=== PATIENT | male | born 1960 | race Caucasian/White ===

== ENCOUNTER → 2022-10-25 14:41 | Outpatient (BNVA) | payer BC, SELFPAY | PROVIDERS: PCP Internal Medicine; Visit Provider Surgery ==

== ENCOUNTER 2022-11-11 15:18 | Outpatient (REF) | payer BC, SELFPAY ==
--- NOTE | ~2022-11-11 | XR_ITS ---
EXAMINATION: XR KNEE, LEFT CLINICAL INFORMATION: Pain COMPARISON: Previous x-ray December 2008 TECHNIQUE: Four views of the left knee. FINDINGS: Bone alignment is normal. No fracture or dislocation. There is joint space narrowing and small osteophytes at the medial femoral tibial joint. There are osteophytes at the patellofemoral joint and slight lateral tilt of the patella. There are increasing soft tissue ossifications posterior to the knee questionable for ossified intra-articular loose bodies. There is a small joint effusion. XR/XR knee LT 4V IMPRESSION: Arthritis and question ossified intra-articular loose bodies.
== END 2022-11-11 15:19 | disposition home or self-care (01) ==
LOC: HO.HMGCX 15:18
PROVIDERS: PCP Internal Medicine; Visit Provider Internal Medicine
DX: M25.562 Pain in left knee (principal)
CPT/HCPCS: 73564

== ENCOUNTER 2022-12-20 13:09 | Outpatient (REF) | payer BC, SELFPAY ==
--- NOTE | ~2022-12-20 | XR_ITS ---
EXAMINATION: XR HIP, LEFT CLINICAL INFORMATION: Left hip pain COMPARISON: None available. TECHNIQUE: Two views of the left hip. FINDINGS: No significant hip joint narrowing. No fracture or dislocation. Mild sclerosis symphysis pubis. Mild spurring left lesser trochanter. XR/XR hip LT min 2V IMPRESSION: No acute bony pathology.
--- NOTE | ~2022-12-20 | XR_ITS ---
EXAMINATION: XR ANKLE, LEFT CLINICAL INFORMATION: Left ankle pain COMPARISON: None available. TECHNIQUE: AP, lateral, and mortise views of the left ankle. FINDINGS: No fracture. Alignment is anatomic. No erosions. Joint spaces are maintained. Soft tissues are normal. Calcaneal spurring. Pretibial phlebolith. XR/XR ankle LT min 3V IMPRESSION: No acute bony pathology. Calcaneal spurring.
== END 2022-12-20 13:10 | disposition home or self-care (01) ==
LOC: HO.HMGCX 13:09
PROVIDERS: PCP Internal Medicine; Visit Provider Internal Medicine
DX: R60.0 Localized edema (principal); M25.572 Pain in left ankle and joints of left foot; M25.552 Pain in left hip
CPT/HCPCS: 73502; 73610

== ENCOUNTER 2023-01-03 10:49 | Outpatient (AMB) | payer BC, SELFPAY ==
--- NOTE | 2023-01-03 11:09 | MHC.OFFVIS ---
Intake Vital Signs 01/03/23 11:11 Height 6 ft 1 in Weight 367 lb BMI 48.4 Intake Visit Reasons: [employer]- left knee pain Intake Note: Kolby is a 62 year old male who presents today as a new patient with complaints of left knee pain. Patient reports that the left knee has been painful for many years now. He was told by [facility] that he had PF knee syndrome. No history of injections or surgery. Some therapy which was not helpful. His knee is painful at all times, increased pain with getting in and out of the car and performing daily acitvities. He takes ibuprofen for his pain which helps but does not want to rely on this. Allergies Penicillins [PENICILLINS] Allergy (Intermediate, Unverified 02/10/20 15:29) HIVES lisinopril [LISINOPRIL] Adverse Reaction (Intermediate, Unverified 02/10/20 15:29) COUGH HPI [employer]- left knee pain HPI Details Kolby is a 62 year old man who presents with several years left knee pain. He complains of pain with daily activity, worse with walking, using stairs, or climbing in/out of a car. He says he can walk only a sort distance now before having to rest. He says standing from a seated position is especially painful. He reports walking with a limp for ~10 years now He says his knee pain worsened after this injury. He complains of some pain in his left ankle, following a sprain ~3 months ago. He says he has a band of burning pain just above his ankle. He denies any injections or surgery. He takes NSAIDs which gave some relief and he did some PT which he feels did not help him much. He says he has always been big his whole life, but he has gained ~50lbs in the last few years [facility] Social History (Updated 01/03/23 @ 11:14 by Lorene Lima [facility]) Current occupational status: employed Current occupation: [employer] Review of Systems Const All systems reviewed & are unremarkable except as noted in HPI and below Physical Exam Vital Signs: BMI result Body Mass Index 48.4 Const General: no acute distress, alert and awake Orientation/consciousness: patient oriented x3 HEENT Head: Yes normocephalic and Yes atraumatic Eyes EOM: EOMs intact bilaterally Resp Effort & Inspection: normal respiratory effort and able to speak in complete sentences Cardio Jugular venous distension: no JVD Skin General skin exam: turgor normal Rashes: no rashes Neuro General: patient oriented x3 Extrem Other: Left Knee: Psych Appearance: grossly normal Affect: normal affect Attitude: cooperative Office Procedures Joint Injection/Drain Joint Injection/Drain Details: Injected 1 mL of Decadron and 3 mL 1% lidocaine and 3 mL of 0.25% Marcaine. Site was prepped using aseptic technique. Patient tolerated the procedure well. Primary Site: left knee Approach Used: anterolateral Coding 59998 - Large joint Procedure code (CPT) selection complete Results Reviewed Results Reviewed: 01/03/23 11:42 BUPivacaine MPF 0.25 % [Sensorcaine-MPF 0.25% 10 ML] 10 ml .ROUTE .STK-MED ONE Lidocaine HCl 2 % MPF [Xylocaine 2 % MPF] 5 ml .ROUTE .STK-MED ONE dexAMETHasone sod phosphate [Decadron] 4 mg .ROUTE .STK-MED ONE I personally reviewed relevant radiographs. Moderate-severe left knee OA Assessment & Plan Assessment & Plan (1) Osteoarthritis of left knee: Code(s): M17.12 - Unilateral primary osteoarthritis, left knee Plan: This is a 62 year old man with moderate-severe left knee OA. He has pain with daily activity, worse with prolonged ambulation, standing from a seated position, or using stairs. He is unable to ambulate beyond a few minutes without pain and feels limited in his ADLs. I discussed his diagnosis and treatment options. I recommend PT, NSAIDs, and weight management. I injected his left knee today, which he tolerated well, and ordered PT for strengthening & normalizing gait mechanics. He will follow up in 3 months. (2) Antalgic gait: Code(s): R26.89 - Other abnormalities of gait and mobility (3) BMI 45.0-49.9, adult: Code(s): Z68.42 - Body mass index [BMI] 45.0-49.9, adult Plan: Current BMI 48.4. I recommend weight management. Plan Scribed for Ashutosh Pinzon MD by Von Lamb, medical physiologist, on 01/03/23 at 11:45 AM, EST. Orders: Orders PT Evaluation and Treatment Today M17.12 - Unilateral primary osteoarthritis, left knee, R26.89 - Other abnormalities of gait and mobility Coding Level of Care Code New Pt Level 4 (26587) Diagnoses Osteoarthritis of left knee M17.12 Antalgic gait R26.89 BMI 45.0-49.9, adult Z68.42 CPT Codes Coding - 05094 Large joint: 23067 - Large joint ([id number])
[2023-01-03 11:11] VITALS: BMI 48.4
== END 2023-01-03 12:07 | disposition home or self-care (01) ==
PROVIDERS: PCP Internal Medicine; Visit Provider Orthopaedic Surgery
DX: M17.12 Unilateral primary osteoarthritis, left knee (principal); R26.89 Other abnormalities of gait and mobility; Z68.42 Body mass index [BMI] 45.0-49.9, adult
CPT/HCPCS: 20610; 99204

== ENCOUNTER → 2023-01-03 10:49 | Outpatient (BNVA) | payer BC, SELFPAY | PROVIDERS: PCP Internal Medicine; Visit Provider Orthopaedic Surgery | DX: M17.12 Unilateral primary osteoarthritis, left knee (principal); R26.89 Other abnormalities of gait and mobility; E66.3 Overweight; Z68.42 Body mass index [BMI] 45.0-49.9, adult | CPT/HCPCS: 20610; J1100 ==

== ENCOUNTER 2023-02-14 10:00 | Outpatient (REF) | payer BC, SELFPAY ==
--- NOTE | ~2023-02-14 | XR_ITS ---
EXAMINATION: XR LUMBOSACRAL SPINE CLINICAL INFORMATION: Reason for Exam LOW BACK PAIN. COMPARISON: Lumbar spine radiographs 12/27/2017 TECHNIQUE: 3 views of the lumbar spine FINDINGS: 5 nonrib-bearing lumbar-type vertebral bodies. Vertebral body heights are maintained. Alignment is maintained. Moderate to advanced multilevel degenerative disc disease with loss of disc space height and facet arthropathy progressed from prior. Paravertebral soft tissues are unremarkable. XR/XR lumbar spine 2-3V IMPRESSION: 1. Moderate to advanced multilevel degenerative disc disease progressed from prior.
== END 2023-02-14 10:01 | disposition home or self-care (01) ==
LOC: HO.HMGCX 10:00
PROVIDERS: PCP Internal Medicine; Visit Provider Internal Medicine
DX: M51.37 Other intervertebral disc degeneration, lumbosacral region (principal); M54.50 Low back pain, unspecified
CPT/HCPCS: 72100

== ENCOUNTER 2023-04-07 14:51 | Outpatient (AMB) | payer BC, SELFPAY ==
--- NOTE | 2023-04-07 14:57 | A.OFFVIS_ITS ---
Intake Intake Visit Reasons: Left Knee last inj 01/03/23 Intake Note: This is a 62 year old male patient who presents for a follow up. He had a left knee injection on 01/03/23. Allergies Penicillins [PENICILLINS] Allergy (Intermediate, Unverified 04/07/23 15:01) HIVES lisinopril [LISINOPRIL] Adverse Reaction (Intermediate, Unverified 04/07/23 15:01) COUGH Medication List - Last Reconciled 04/07/23 by Jazmyne Jack RN losartan 50 mg PO DAILY naproxen 500 mg PO BID HPI Left Knee last inj 01/03/23 HPI Details Kolby is a 62 year old man who returns to discuss his left knee OA. He was last seen, and injected, on 01/03/23, with good, but short relief. He reports some improvements in his pain, but this has not fully resolved. He continues to have pain with daily activity, worse with walking, using stairs, or climbing in/out of a car. He says he can walk only a sort distance now before having to rest. He says standing from a seated position is especially painful. He reports having some increased pain in his hips and is unsure if his back is related. He has been attending PT, which has been helpful, and has found more relief from Naproxen recently. [facility] Social History (Updated 01/03/23 @ 11:14 by Lorene Lima [facility]) Current occupational status: employed Current occupation: [employer] Review of Systems Const All systems reviewed & are unremarkable except as noted in HPI and below Physical Exam Const General: no acute distress, alert and awake Orientation/consciousness: patient oriented x3 HEENT Head: Yes normocephalic and Yes atraumatic Eyes EOM: EOMs intact bilaterally Resp Effort & Inspection: normal respiratory effort and able to speak in complete sentences Cardio Jugular venous distension: no JVD Skin General skin exam: turgor normal Rashes: no rashes Neuro General: patient oriented x3 Extrem Other: Left Knee: Psych Appearance: grossly normal Affect: normal affect Attitude: cooperative Office Procedures Joint Injection/Drain Joint Injection/Drain Details: Injected 1 mL of Decadron and 3 mL 1% lidocaine and 3 mL of 0.25% Marcaine. Site was prepped using aseptic technique. Patient tolerated the procedure well. Primary Site: left knee Approach Used: anterolateral Coding 79476 - Large joint Procedure code (CPT) selection complete Results Reviewed Results Reviewed: I personally reviewed relevant radiographs. Moderate-severe left knee OA Assessment & Plan Assessment & Plan (1) Osteoarthritis of left knee: Code(s): M17.12 - Unilateral primary osteoarthritis, left knee Plan: This is a 62 year old man with moderate-severe left knee OA. He has pain with daily activity, worse with prolonged ambulation, standing from a seated position, or using stairs. He had good but short relief from a steroid injection on 01/03/23 & finds some relief from PT. He is unable to ambulate beyond a few minutes without pain and feels limited in his ADLs. I discussed his diagnosis and treatment options. I recommend he continue PT, NSAIDs, and weight management. I injected his left knee today, which he tolerated well, he should be mindful to not push through pain. He will follow up in 3 months. (2) Antalgic gait: Code(s): R26.89 - Other abnormalities of gait and mobility (3) BMI 45.0-49.9, adult: Code(s): Z68.42 - Body mass index [BMI] 45.0-49.9, adult Plan: Current BMI 48.4. I recommend weight management. Plan Scribed for Ashutosh Pinzon MD by Von Lamb, medical assistant cardiology, on 04/07/23 at 3:10 PM, EST. Coding Level of Care Code Est Pt Level 3 (39294) Diagnoses Osteoarthritis of left knee M17.12 Antalgic gait R26.89 BMI 45.0-49.9, adult Z68.42 CPT Codes Coding - Large joint: 74795 - Large joint ([id number])
== END 2023-04-07 15:14 | disposition home or self-care (01) ==
PROVIDERS: PCP Internal Medicine; Visit Provider Orthopaedic Surgery
DX: M17.12 Unilateral primary osteoarthritis, left knee (principal); R26.89 Other abnormalities of gait and mobility
CPT/HCPCS: 20610; 99213

== ENCOUNTER → 2023-04-07 14:51 | Outpatient (BNVA) | payer BC, SELFPAY | PROVIDERS: PCP Internal Medicine; Visit Provider Orthopaedic Surgery | DX: M17.12 Unilateral primary osteoarthritis, left knee (principal); R26.89 Other abnormalities of gait and mobility | CPT/HCPCS: 20610; J0665; J1100 ==

== ENCOUNTER 2023-12-10 13:55 | Outpatient (AMB) | payer BC, SELFPAY ==
--- NOTE | 2023-12-10 14:10 | MHC.OFFVIS ---
Intake Visit Reasons: incomplete bladder emptying/nocturia Intake Note: New Patient presents for initial visit for incomplete bladder emptying Urology Medications: none Blood Thinner: none PVR: 17ml's Media Aid Required: No Accompanied by: Self / Same As Patient Allergies Penicillins [PENICILLINS] Allergy (Intermediate, Unverified 12/10/23 15:33) HIVES lisinopril [LISINOPRIL] Adverse Reaction (Intermediate, Unverified 12/10/23 15:33) COUGH Medication List - Last Reconciled 12/10/23 by CALLIE Garzon- losartan 50 mg PO DAILY naproxen 500 mg PO BID HPI Comments Details: Kolby is a very pleasant 63-year-old male patient of Dr. Baxter. He has a past medical history of obesity and hypertension. He presents to the office today as a new patient for ongoing lower urinary tract symptoms. In discussion with the patient today he reports noting worsening lower urinary tract symptoms over the last 2-3 years. He reports having followed up with his PCP at which time he discussed lower urinary tract symptoms in referral was made to Urology for further assessment evaluation. He reports noting nocturia up to 5 times per night as well as urinary urgency and frequency. He otherwise denies hematuria, dysuria, foul smelling urine, changes to urinary stream, flank pain, fever, and or chills. In office urinalysis results reviewed with the patient today. PVR 17 mL. Discussed at length potential causes for lower urinary tract symptoms patient is experiencing. Discussed obtaining sleep study, retroperitoneal ultrasound, and PSA for further assessment evaluation. Discussed lifestyle modifications to assist with lower urinary tract symptoms. He otherwise denies any other bothersome issues or concerns at this time. [facility] Social History Current occupational status: employed Current occupation: [employer] Review of Systems Const All systems reviewed & are unremarkable except as noted in HPI and below Physical Exam Const General: cooperative, comfortable, no acute distress, well developed, alert and awake Nutritional Appearance: obese Orientation/consciousness: patient oriented x3 Limitations: no limitations HEENT Head: Yes normal to inspection, Yes normocephalic and Yes atraumatic Ears: hearing grossly normal bilaterally Eyes General: appearance normal, both eyes and all related structures Neck Neck: Yes normal visual inspection and Yes trachea midline Chest Chest palpation & inspection: normal inspection of the chest Resp Effort & Inspection: normal respiratory effort and able to speak in complete sentences Cardio Rate: regular rate GI Inspection: Yes normal to inspection General: Yes no CVA tenderness Back/Spine/Pelvis Back: no CVA tenderness Skin General skin exam: no rashes or lesions noted Neuro General: patient oriented x3 Extrem General: Yes normal to inspection Psych Appearance: grossly normal and well kempt Mental Status: mental status grossly normal Speech and movement: Normal speech and movement present and Clear speech present Affect: normal affect Attitude: cooperative Thought process: Normal thought process present Thought content: Normal thought content present Insight: Fair insight present (Psych) Judgement: Fair judgement present (Psych) Office Procedures Post Void Residual Post Residual Void Post Void Residual (PVR): 54624-Cygd Void Residual by ultrasound Results AMB Urinalysis, Automated UA Leukoctes 0 Lizzy/uL Last Edit by Adyoulike on 12/10/23 14:39 UA Nitrite Negative Last Edit by Adyoulike on 12/10/23 14:39 UA Urobilinogen 0.2 mg/dL Last Edit by Adyoulike on 12/10/23 14:39 UA Protein 15 mg/dL Last Edit by Adyoulike on 12/10/23 14:39 UA pH 6.0 Last Edit by Adyoulike on 12/10/23 14:39 UA Blood 0 Braulio/uL Last Edit by Adyoulike on 12/10/23 14:39 UA Specific [place] 1.020 Last Edit by Adyoulike on 12/10/23 14:39 UA Ketone Negative Last Edit by Adyoulike on 12/10/23 14:39 UA Bilirubin 0 mg/dL Last Edit by Adyoulike on 12/10/23 14:39 UA Glucose 0 mg/dL Last Edit by Adyoulike on 12/10/23 14:39 Results Reviewed Results Reviewed: Laboratory Last Values Urine pH (Auto) 6.0 12/10/23 14:15 Specific [place] (Auto) 1.020 12/10/23 14:15 Urine Protein (Auto) 15 mg/dL 12/10/23 14:15 Glucose (UA)(Auto) 0 mg/dL 12/10/23 14:15 Urine Ketones (Auto) Negative 12/10/23 14:15 Urine Blood (Auto) 0 Braulio/uL 12/10/23 14:15 Urine Nitrite (Auto) Negative 12/10/23 14:15 Urine Bilirubin (Auto) 0 mg/dL 12/10/23 14:15 Urine Urobilinogen (Auto) 0.2 mg/dL 12/10/23 14:15 Leukocyte Esterase (Auto) 0 Lizzy/uL 12/10/23 14:15 Assessment & Plan Assessment & Plan (1) Nocturia: Code(s): R35.1 - Nocturia Category: Medical (2) Urinary frequency: Code(s): R35.0 - Frequency of micturition Category: Medical Plan In office urinalysis results reviewed with the patient today; as noted above. PVR 17 mL. Discussed at length potential causes of lower urinary tract symptoms patient is experiencing. Discussed obtaining retroperitoneal ultrasound, PSA, and home sleep study for further assessment evaluation. Discussed potential near future in office cystoscopy if symptoms continue and or worsen. Discussed lifestyle modifications to assist with lower urinary tract symptoms. Discussed bladder triggers/irritants Discussed, educated, and stressed the importance of weight loss for improvement lower urinary tract symptoms as well as overall health and well-being. Follow-up in 1-3 months with imaging and labs to be completed prior; or sooner with any issues, concerns, and or questions. Orders: Orders AMB Urinalysis Automated Today Z13.9 - Encounter for screening, unspecified AMB Post Void Residual by ultrasound Today Z13.9 - Encounter for screening, unspecified US retroperitoneal comp Today R35.0 - Frequency of micturition, R35.1 - Nocturia Prostate Specific Antigen Today R35.0 - Frequency of micturition, R35.1 - Nocturia RT home sleep study Today R35.1 - Nocturia, R53.83 - Other fatigue Patient Instructions: The patient had an opportunity to ask questions regarding the treatment plan. All questions were answered. Physical exam, labs, and imaging were discussed and reviewed in detail. As well as risks, benefits, and discussion of treatment choices. No major barriers to understanding were identified. The patient expressed understanding and agreement with the above treatment plan. The patient was made aware they should contact our office by phone for worsening of their current condition, the appearance of new symptoms, or with any questions or concerns. Compliance is encouraged with any medications and follow up testing that is ordered. It is a privilege to be allowed the opportunity to participate in? your urological care.? Again, if you have any questions or concerns If you have any questions or concerns please do not hesitate to contact me. The office is [phone]. This note is constructed using voice recognition software. While every effort has been made to ensure accuracy internal combustion engine subassembler errors may have been included. Yours sincerely, CALLIE Garzon-ABDIEL Coding Level of Care Code New Pt Level 3 (64950) Diagnoses Nocturia R35.1 Urinary frequency R35.0 CPT Codes Post Residual Void - PVR CPT Code: 68004-Ydlq Void Residual by ultrasound ([id number])
== END 2023-12-10 14:55 | disposition home or self-care (01) ==
PROVIDERS: PCP Internal Medicine; Visit Provider Nurse Practitioner Family
DX: R35.1 Nocturia (principal); R35.0 Frequency of micturition; Z13.9 Encounter for screening, unspecified
CPT/HCPCS: 99203

== ENCOUNTER → 2023-12-10 13:55 | Outpatient (BNVA) | payer BC, SELFPAY | PROVIDERS: PCP Internal Medicine; Visit Provider Nurse Practitioner Family | DX: R35.1 Nocturia (principal); R35.0 Frequency of micturition | CPT/HCPCS: 51798; 81003 ==

== ENCOUNTER 2024-01-28 16:20 | Outpatient (REF) | payer BC, SELFPAY ==
--- NOTE | ~2024-01-28 | US_ITS ---
EXAMINATION: US RETROPERITONEAL LIMITED (RENAL ONLY) CLINICAL INFORMATION: Nocturia. COMPARISON: None available. TECHNIQUE: Real-time imaging of the kidneys. FINDINGS: RIGHT KIDNEY: 12.9 x 5.4 x 4.9 cm (SAG x AP x TRV). The kidney is normal in size, contour, and echogenicity. Renal cortical thickness is normal. No calculi or focal parenchymal lesions. No hydronephrosis. LEFT KIDNEY: 11.9 x 5.7 x 5.0 cm (SAG x AP x TRV). The kidney is normal in size, contour, and echogenicity. Renal cortical thickness is normal. No calculi or focal parenchymal lesions. No hydronephrosis. US/US retroperitoneal limited IMPRESSION: Unremarkable examination. Electronically signed by: Reza Berrios MD 01/30/2024 10:28 PM EDT
== END 2024-01-28 16:21 | disposition home or self-care (01) ==
LOC: HO.US 16:20
PROVIDERS: PCP Internal Medicine; Visit Provider Nurse Practitioner Family
DX: R35.1 Nocturia (principal); R35.0 Frequency of micturition
CPT/HCPCS: 76775

== ENCOUNTER 2024-02-04 09:56 | Outpatient (REF) | payer BC, SELFPAY ==
--- NOTE | ~2024-02-04 | US_ITS ---
EXAMINATION: US PELVIS LIMITED (BLADDER) CLINICAL INFORMATION: Nocturia. COMPARISON: None available. TECHNIQUE: Real-time imaging of the bladder. FINDINGS: BLADDER: Well distended and normal. Bilateral ureteral jets are demonstrated. Prevoid bladder volume is 217 mL. Postvoid bladder volume is 26 mL. PROSTATE: The prostate was not seen with certainty. What was thought to possibly represent the prostate was of normal volume at 16 mL. US/US bladder IMPRESSION: Normal-appearing bladder. Limited evaluation of the prostate, as described above. 26 mL postvoid residual. Electronically signed by: Beltran Rehman MD 02/07/2024 12:35 PM EDT
== END 2024-02-04 09:57 | disposition home or self-care (01) ==
LOC: HO.HMGCX 09:56
PROVIDERS: PCP Internal Medicine; Visit Provider Nurse Practitioner Family
DX: R35.1 Nocturia (principal); R35.0 Frequency of micturition
CPT/HCPCS: 76857

== ENCOUNTER 2024-02-21 09:05 | Outpatient (REF) | payer BC, SELFPAY ==
[2024-02-21 12:04] LABS: Prostate Specific Antigen 0.76 ng/mL (<0.05-4.0)
== END 2024-02-21 09:06 | disposition home or self-care (01) ==
LOC: HO.HMGCLDS 09:05
PROVIDERS: PCP Internal Medicine; Visit Provider Nurse Practitioner Family
DX: R35.1 Nocturia (principal); R35.0 Frequency of micturition; Z12.5 Encounter for screening for malignant neoplasm of prostate
CPT/HCPCS: 36415; 84153

== ENCOUNTER 2024-02-23 15:44 | Outpatient (AMB) | payer BC, SELFPAY ==
--- NOTE | 2024-02-23 15:47 | A.OFFVIS_ITS ---
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 Baxter. He has a past medical history of obesity and hypertension. He presents to the office today for follow-up. Of note, patient was seen approximately 2 months ago as a new patient for ongoing lower urinary tract symptoms at which time asleep pumps study was ordered, a PSA, and a retroperitoneal ultrasound for further assessment evaluation. These results were reviewed with the patient today bilateral kidneys with no calculi, lesions, and or hydronephrosis. The bladder is well distended and normal. Bladder jets are demonstrated. Pre void bladder volume is approximately 220 mL. Postvoid bladder volume is approximately 30 mL. The prostate was not seen with certainty. What was thought to possibly represent the prostate was of normal volume at 16 mL. PSA 02/16 0.8. Unfortunately home sleep study was not able to be performed as this was not covered by his insurance. We discussed referral to sleep medicine for further assessment evaluation as patient does report feeling fatigued upon wakening, nocturia, and reports snoring. We discussed trial of alpha-whitney verses in office cystoscopy for further assessment evaluation. He does continue to report nocturia up to 5 times per night, urinary urgency, and urinary frequency. He otherwise denies hematuria, dysuria, foul-smelling urine, changes to urinary stream, flank pain, fever, and or chills. In office urinalysis results reviewed with the patient today. PVR 20 mL. We discussed at length potential causes of lower urinary tract symptoms patient is experiencing as well as importance of weight loss to assist with lower urinary tract symptoms as well as overall health and well-being. He otherwise offers no other issues or concerns at this time. [facility] Social History Current occupational status: employed Current occupation: [employer] Review of Systems Const All systems reviewed & are unremarkable except as noted in HPI and below Physical Exam Const General: cooperative, comfortable, no acute distress, well developed, alert and awake Nutritional Appearance: obese Orientation/consciousness: patient oriented x3 Limitations: no limitations HEENT Head: Yes normal to inspection, Yes normocephalic and Yes atraumatic Ears: hearing grossly normal bilaterally Eyes General: appearance normal, both eyes and all related structures Neck Neck: Yes normal visual inspection and Yes trachea midline Chest Chest palpation & inspection: normal inspection of the chest Resp Effort & Inspection: normal respiratory effort and able to speak in complete sentences Cardio Rate: regular rate GI Inspection: Yes normal to inspection General: Yes no CVA tenderness Back/Spine/Pelvis Back: no CVA tenderness Skin General skin exam: no rashes or lesions noted Neuro General: patient oriented x3 Extrem General: Yes normal to inspection Psych Appearance: grossly normal and well kempt Mental Status: mental status grossly normal Speech and movement: Normal speech and movement present and Clear speech present Affect: normal affect Attitude: cooperative Thought process: Normal thought process present Thought content: Normal thought content present Insight: Fair insight present (Psych) Judgement: Fair judgement present (Psych) Office Procedures Post Void Residual Post Residual Void Post Void Residual (PVR): 20 [id number] Void Residual by ultrasound Results AMB Urinalysis, Automated UA Leukoctes 0 Lizzy/uL Last Edit by Clifton Sam on 02/23/24 16:10 UA Nitrite Negative Last Edit by Clifton Sam on 02/23/24 16:10 UA Urobilinogen 0.2 mg/dL Last Edit by Clifton Sam on 02/23/24 16:10 UA Protein 15 mg/dL Last Edit by Clifton Sam on 02/23/24 16:10 UA pH 6.0 Last Edit by Tomo Clasestova Sam on 02/23/24 16:10 UA Blood 0 Braulio/uL Last Edit by Tomo Clasestova Sam on 02/23/24 16:10 UA Specific [place] 1.020 Last Edit by Tomo Clasestova Sam on 02/23/24 16:10 UA Ketone Last Edit by Tomo Clasestova Sam on 02/23/24 16:10 UA Bilirubin 0 mg/dL Last Edit by Tomo Clasestova [employer]uv[employer] on 02/23/24 16:10 UA Glucose 0 mg/dL Last Edit by ABILITY Networkai Incuvosteph on 02/23/24 16:10 Results Reviewed Results Reviewed: Laboratory Last Values Urine pH (Auto) 6.0 02/23/24 16:08 Specific [place] (Auto) 1.020 02/23/24 16:08 Urine Protein (Auto) 15 mg/dL 02/23/24 16:08 Glucose (UA)(Auto) 0 mg/dL 02/23/24 16:08 Urine Blood (Auto) 0 Braulio/uL 02/23/24 16:08 Urine Nitrite (Auto) Negative 02/23/24 16:08 Urine Bilirubin (Auto) 0 mg/dL 02/23/24 16:08 Urine Urobilinogen (Auto) 0.2 mg/dL 02/23/24 16:08 Leukocyte Esterase (Auto) 0 Lizzy/uL 02/23/24 16:08 Date of Service: 01/28/24 EXAMINATION: US RETROPERITONEAL LIMITED (RENAL ONLY) FINDINGS: RIGHT KIDNEY: 12.9 x 5.4 x 4.9 cm (SAG x AP x TRV). The kidney is normal in size, contour, and echogenicity. Renal cortical thickness is normal. No calculi or focal parenchymal lesions. No hydronephrosis. LEFT KIDNEY: 11.9 x 5.7 x 5.0 cm (SAG x AP x TRV). The kidney is normal in size, contour, and echogenicity. Renal cortical thickness is normal. No calculi or focal parenchymal lesions. No hydronephrosis. IMPRESSION: Unremarkable examination. ---- Date of Service: 02/04/24 EXAMINATION: US PELVIS LIMITED (BLADDER) FINDINGS: BLADDER: Well distended and normal. Bilateral ureteral jets are demonstrated. Prevoid bladder volume is 217 mL. Postvoid bladder volume is 26 mL. PROSTATE: The prostate was not seen with certainty. What was thought to possibly represent the prostate was of normal volume at 16 mL. IMPRESSION: Normal-appearing bladder. Limited evaluation of the prostate, as described above. 26 mL postvoid residual. Assessment & Plan Assessment & Plan (1) Urinary frequency: Code(s): R35.0 - Frequency of micturition Category: Medical (2) Nocturia: Code(s): R35.1 - Nocturia Category: Medical (3) Urinary urgency: Code(s): R39.15 - Urgency of urination Category: Medical Plan In office urinalysis results reviewed with the patient today; as noted above. PVR 20 mL. Recent retroperitoneal ultrasound results reviewed with the patient today; as noted above. Discussed possible near future in office cystoscopy and or urodynamics for further assessment evaluation. Start Flomax as discussed and prescribed. Discussed sleep medicine referral for further assessment evaluation. Discussed bladder triggers/irritants. Discussed at length importance of limiting fluids 2-3 hours prior to bed to decrease episodes of nocturia. Discussed importance of weight loss in correlation of lower urinary tract symptoms as well as for overall health and well-being. Follow-up in 6-8 weeks with PVR; or sooner with any issues, concerns, and or questions. Orders: Orders AMB Urinalysis Automated Today Z13.9 - Encounter for screening, unspecified AMB Post Void Residual by ultrasound Today R35.0 - Frequency of micturition Medications: New tamsulosin 0.4 mg PO BEDTIME 30 days 30 caps 3RF N40.1 - Benign prostatic hyperplasia with lower urinary tract symptoms, R35.1 - Nocturia Patient Instructions: The patient had an opportunity to ask questions regarding the treatment plan. All questions were answered. Physical exam, labs, and imaging were discussed and reviewed in detail. As well as risks, benefits, and discussion of treatment choices. No major barriers to understanding were identified. The patient expressed understanding and agreement with the above treatment plan. The patient was made aware they should contact our office by phone for worsening of their current condition, the appearance of new symptoms, or with any questions or concerns. Compliance is encouraged with any medications and follow up testing that is ordered. It is a privilege to be allowed the opportunity to participate in? your urological care.? Again, if you have any questions or concerns If you have any questions or concerns please do not hesitate to contact me. The office is [phone]. This note is constructed using voice recognition software. While every effort has been made to ensure accuracy income tax auditor errors may have been included. Yours sincerely, CALLIE Garzon-ABDIEL Coding Level of Care Code Est Pt Level 4 (24314) Diagnoses Urinary frequency R35.0 Nocturia R35.1 Urinary urgency R39.15 CPT Codes Post Residual Void - PVR CPT Code: 48947-Ipgt Void Residual by ultrasound ([id number])
== END 2024-02-23 16:32 | disposition home or self-care (01) ==
PROVIDERS: PCP Internal Medicine; Visit Provider Nurse Practitioner Family
DX: R35.0 Frequency of micturition (principal); R35.1 Nocturia; R39.15 Urgency of urination; Z13.9 Encounter for screening, unspecified
CPT/HCPCS: 99214

== ENCOUNTER → 2024-02-23 15:44 | Outpatient (BNVA) | payer BC, SELFPAY | PROVIDERS: PCP Internal Medicine; Visit Provider Nurse Practitioner Family | DX: R35.0 Frequency of micturition (principal); R35.1 Nocturia; R39.15 Urgency of urination | CPT/HCPCS: 51798; 81003 ==

== ENCOUNTER 2024-02-25 10:57 | Outpatient (AMB) | payer BC, SELFPAY ==
--- NOTE | 2024-02-25 11:01 | A.OFFVIS_ITS ---
Vital Signs 02/25/24 11:02 Height 6 ft 1 in Weight 385 lb 2 oz BMI 50.8 BP 128/78 Blood Pressure Location Rt brachial Position Sitting Respiration 16 Pulse 95 Pulse Source Pulse Oximeter Pulse Oximetry (%) 98 Oxygen Delivery Method Room Air Intake Visit Reasons: INP sleep nocturia Intake Note: Pt presents to the office for new pt consultation for sleep disturbances and nocturia. 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 Main complaints-Nocturia Sleep questionnaire- Difficulty falling asleep-yes Difficulty staying asleep-yes Number of [id number] Snoring-yes Witnessed apneas-no Gasping arousals-no Nocturia-yes GERD-yes Vivid dreams-no Acting out dreams -no Abnormal behavior in sleep-no ABnormal movements in sleep-no Morning headaches-no Excessive daytime sleepiness-yes Daytime naps- no restless legs- no Hallucinations- no sleep paralysis- no Drop attacks- no Sleep study-no Sleep Hygiene- Sleep time 9pm Wake time 4.15 am work hrs 6am-4pm coffee/stimulant use-1-2 12 oz cups Phone Electronics use-during bedtime Exercise-yardwork Bedroom comfort ESS 16 PFSH Medical History Loud snoring Hypersomnia Pilonidal cyst Surgical History H/O vasectomy Family History Father No problems noted. Mother No problems noted. Sister Kidney disease Heart disease Social History Household Members: Spouse Housing: House Alcohol intake: current Comment: 2-3 beer Patient Tobacco Use Status: Never used Tobacco Current occupational status: employed Current occupation: [employer] Physical Exam Vital Signs: Last Vital Signs Pulse 95 02/25/24 11:02 Resp 16 02/25/24 11:02 BP 128/78 02/25/24 11:02 Pulse Ox 98 02/25/24 11:02 Oxygen Delivery Method Room Air 02/25/24 11:02 BMI result Body Mass Index 50.8 Const General: cooperative and comfortable Nutritional Appearance: obese Orientation/consciousness: patient oriented x3 Eyes Pupils: Equal, round and reactive pupils present Neuro Other: Malalmpatti grade 4 Neck size 20 General: patient oriented x3, gait normal, moves all extremities and no focal motor deficits Cranial nerves: Yes Facial sensation intact/muscles of mastication intact, Yes Equal, round and reactive pupils present, Yes Bilaterally intact EOM present, Yes Nystagmus not present, Yes Normal facial strength present and Yes Midline to ngue present Cognition (Neuro): normal cognition Gait exam (Neuro): Normal gait present Motor exam (neuro): 5/5 motor strength present throughout Psych Appearance: grossly normal Assessment & Plan Assessment & Plan (1) Loud snoring: Code(s): R06.83 - Snoring Category: Medical (2) Hypersomnia: Code(s): G47.10 - Hypersomnia, unspecified Category: Medical (3) Nocturia: Code(s): R35.1 - Nocturia Category: Medical Plan Urgent sleep study to evaluate for sleep apnea. Orders: Orders RT home sleep study Today G47.10 - Hypersomnia, unspecified, R06.83 - Snoring Coding Level of Care Code New Pt Level 4 (31964) Diagnoses Loud snoring R06.83 Hypersomnia G47.10 Nocturia R35.1 [place] Sleepiness Scale Questions Sitting and reading: moderate chance of dozing Watching TV: moderate chance of dozing Sitting inactive in a theater, movie etc.: high chance of dozing As a passenger in a car for an hour without break: moderate chance of dozing Lying down in the afternoon when circumstances permit: high chance of dozing Sitting and talking to someone: moderate chance of dozing Sitting quietly after lunch without alcohol: moderate chance of dozing In a car, while stopped for a few minutes in the traffic: slight chance of dozing ESS < 10: normal, ESS > 12: pathologic: 17
[2024-02-25 11:02] VITALS: BP 128/78; PULSE 95; RESP 16; O2SAT 98; BMI 50.8
== END 2024-02-25 11:28 | disposition home or self-care (01) ==
PROVIDERS: PCP Internal Medicine; Visit Provider Psychiatry & Neurology Neurology
DX: R06.83 Snoring (principal); G47.10 Hypersomnia, unspecified; R35.1 Nocturia
CPT/HCPCS: 99204

== ENCOUNTER → 2024-02-25 10:57 | Outpatient (BNVA) | payer BC, SELFPAY | PROVIDERS: PCP Internal Medicine; Visit Provider Psychiatry & Neurology Neurology ==

== ENCOUNTER 2024-04-08 07:44 | Outpatient (AMB) | payer BC, SELFPAY ==
--- NOTE | 2024-04-08 07:51 | A.OFFVIS_ITS ---
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 Baxter. He has a past medical history of obesity and hypertension. He presents to the office today for follow-up of his nocturia. In discussion with the patient today he reports noting initial improvement in episodes of nocturia upon initiation of Flomax however feels symptoms have returned despite compliance with medication. He discusses having followed up with sleep medicine and will be undergoing sleep s tudy early next month. Previous workup has included a retroperitoneal ultrasound and PSA. Ultrasound 02/16 noted bilateral kidneys with no calculi, lesions, and or hydronephrosis. The bladder is well distended and normal. Bladder jets are demonstrated. Pre void bladder volume is approximately 220 mL. Postvoid bladder volume is approximately 30 mL. The prostate was not seen with certainty. What was thought to possibly represent the prostate was of normal volume at 16 mL. PSA 02/16 0.8. We discussed potential causes of lower urinary tract symptoms patient was experiencing. Patient does report episodes of urinary urgency and frequency throughout the day however does not find them as bothersome as his nocturia that is up to 5 times per night. He otherwise denies hematuria, dysuria, foul-smelling urine, changes to urinary stream, flank pain, fever, and or chills. In office urinalysis results reviewed with the patient today. PVR 73 mL. We discussed at length potential causes of lower urinary tract symptoms patient is experiencing as well as importance of weight loss to assist with lower urinary tract symptoms as well as overall health and well-being. We discussed possible near future in office cystoscopy if symptoms continue and or worsen. He otherwise offers no other issues or concerns at this time. [facility] Medical History Loud snoring Hypersomnia Pilonidal cyst Surgical History H/O vasectomy Family History Father No problems noted. Mother No problems noted. Sister Kidney disease Heart disease Social History Household Members: Spouse Housing: House Alcohol intake: current Comment: 2-3 beer Patient Tobacco Use Status: Never used Tobacco Current occupational status: employed Current occupation: [employer] Review of Systems Const All systems reviewed & are unremarkable except as noted in HPI and below Physical Exam Const General: cooperative, comfortable, no acute distress, well developed, alert and awake Nutritional Appearance: obese Orientation/consciousness: patient oriented x3 Limitations: no limitations HEENT Head: Yes normal to inspection, Yes normocephalic and Yes atraumatic Ears: hearing grossly normal bilaterally Eyes General: appearance normal, both eyes and all related structures Neck Neck: Yes normal visual inspection and Yes trachea midline Chest Chest palpation & inspection: normal inspection of the chest Resp Effort & Inspection: normal respiratory effort and able to speak in complete sentences Cardio Rate: regular rate GI Inspection: Yes normal to inspection General: Yes no CVA tenderness Back/Spine/Pelvis Back: no CVA tenderness Skin General skin exam: no rashes or lesions noted Neuro General: patient oriented x3 Extrem General: Yes normal to inspection Psych Appearance: grossly normal and well kempt Mental Status: mental status grossly normal Speech and movement: Normal speech and movement present and Clear speech present Affect: normal affect Attitude: cooperative Thought process: Normal thought process present Thought content: Normal thought content present Insight: Fair insight present (Psych) Judgement: Fair judgement present (Psych) Office Procedures Post Void Residual Post Residual Void Post Void Residual (PVR): 73 [id number] Void Residual by ultrasound Results AMB Urinalysis, Automated UA Leukoctes 0 Lizzy/uL Last Edit by Clifton Sam on 04/08/24 08:55 UA Nitrite Last Edit by Clifton Sam on 04/08/24 08:55 UA Urobilinogen 0.2 mg/dL Last Edit by Terres et Terroirstova Sam on 04/08/24 08:55 UA Protein 15 mg/dL Last Edit by [employer]Bo[employer] on 04/08/24 08:55 UA pH 6.5 Last Edit by Clifton Sam on 04/08/24 08:55 UA Blood 0 Braulio/uL Last Edit by Kliqedai [email or web address] on 04/08/24 08:55 UA Specific [place] 1.015 Last Edit by AudioBoosteph on 04/08/24 08:55 UA Ketone Last Edit by Terres et Terroirstova [email or web address] on 04/08/24 08:55 UA Bilirubin 0 mg/dL Last Edit by Kliqedai [email or web address] on 04/08/24 08:55 UA Glucose 0 mg/dL Last Edit by Kliqedai [email or web address] on 04/08/24 08:55 Results Reviewed Results Reviewed: Laboratory Last Values Urine pH (Auto) 6.5 04/08/24 08:54 Specific [place] (Auto) 1.015 04/08/24 08:54 Urine Protein (Auto) 15 mg/dL 04/08/24 08:54 Glucose (UA)(Auto) 0 mg/dL 04/08/24 08:54 Urine Blood (Auto) 0 Braulio/uL 04/08/24 08:54 Urine Bilirubin (Auto) 0 mg/dL 04/08/24 08:54 Urine Urobilinogen (Auto) 0.2 mg/dL 04/08/24 08:54 Leukocyte Esterase (Auto) 0 Lizzy/uL 04/08/24 08:54 Assessment & Plan Assessment & Plan (1) Urinary urgency: Code(s): R39.15 - Urgency of urination Category: Medical (2) Urinary frequency: Code(s): R35.0 - Frequency of micturition Category: Medical (3) Nocturia: Code(s): R35.1 - Nocturia Category: Medical Plan In office urinalysis results reviewed with the patient today; as noted above. PVR 73 mL. Stop Flomax. Start terazosin 5 mg at bedtime as discussed and prescribed. Continue to follow-up with sleep medicine for further assessment evaluation of potential sleep apnea. Discussed importance of limiting fluids 2-3 hours prior to bed to decrease episodes of nocturia. Discussed bladder triggers/irritants. Discussed possible near future in office cystoscopy and or urodynamics for further assessment evaluation. Follow-up in 1-3 months with PVR; or sooner with any issues, concerns, and or questions. Orders: Orders AMB Urinalysis Automated Today Z13.9 - Encounter for screening, unspecified AMB Post Void Residual by ultrasound Today R35.0 - Frequency of micturition Medications: New terazosin 5 mg PO BEDTIME 30 days 30 caps 3RF N40.1 - Benign prostatic hyperplasia with lower urinary tract symptoms, R35.0 - Frequency of micturition Discontinued tamsulosin Discontinued Reason: Doctor's Order 0.4 mg PO BEDTIME 30 days 30 caps 3RF N40.1 - Benign prostatic hyperplasia with lower urinary tract symptoms, R35.1 - Nocturia Patient Instructions: The patient had an opportunity to ask questions regarding the treatment plan. All questions were answered. Physical exam, labs, and imaging were discussed and reviewed in detail. As well as risks, benefits, and discussion of treatment choices. No major barriers to understanding were identified. The patient expressed understanding and agreement with the above treatment plan. The patient was made aware they should contact our office by phone for worsening of their current condition, the appearance of new symptoms, or with any questions or concerns. Compliance is encouraged with any medications and follow up testing that is ordered. It is a privilege to be allowed the opportunity to participate in? your urological care.? Again, if you have any questions or concerns If you have any questions or concerns please do not hesitate to contact me. The office is [phone]. This note is constructed using voice recognition software. While every effort has been made to ensure accuracy shirt sewer errors may have been included. Yours sincerely, JENNIFER Garzon Coding Level of Care Code Est Pt Level 4 (17362) Diagnoses Urinary urgency R39.15 Urinary frequency R35.0 Nocturia R35.1 CPT Codes Post Residual Void - PVR CPT Code: 01895-Bebz Void Residual by ultrasound ([id number])
== END 2024-04-08 08:36 | disposition home or self-care (01) ==
PROVIDERS: PCP Internal Medicine; Visit Provider Nurse Practitioner Family
DX: R39.15 Urgency of urination (principal); R35.0 Frequency of micturition; R35.1 Nocturia; Z13.9 Encounter for screening, unspecified
CPT/HCPCS: 99214

== ENCOUNTER → 2024-04-08 07:44 | Outpatient (BNVA) | payer BC, SELFPAY | PROVIDERS: PCP Internal Medicine; Visit Provider Nurse Practitioner Family | DX: N40.1 Benign prostatic hyperplasia with lower urinary tract symptoms (principal); R39.15 Urgency of urination; R35.0 Frequency of micturition; R35.1 Nocturia | CPT/HCPCS: 51798; 81003 ==

== ENCOUNTER 2024-04-19 13:19 | Outpatient (REF) | payer BC, SELFPAY | END 2024-04-19 13:20 | disposition home or self-care (01) | LOC: HO.HMGCX 13:19 | PROVIDERS: PCP Internal Medicine; Visit Provider Internal Medicine | DX: M54.2 Cervicalgia (principal) | CPT/HCPCS: 72040 ==

== ENCOUNTER 2024-05-27 15:47 | Outpatient (AMB) | payer BC, SELFPAY ==
--- NOTE | 2024-05-27 15:49 | A.OFFVIS_ITS ---
Intake Visit Reasons: 7w/PVR Intake Note: Patient presents today for follow up on: incomplete bladder emptying, nocturia, frequency, urgency Urology Medications: Terazosin Blood Thinner: none PVR: 19ml's Extension Educator Required: No Accompanied by: Self / Same As Patient Allergies azithromycin [From Zithromax Z-Burton] Allergy (Intermediate, Verified 05/27/24 20:40) Diarrhea Penicillins [PENICILLINS] Allergy (Intermediate, Verified 05/27/24 20:40) HIVES lisinopril [LISINOPRIL] Adverse Reaction (Intermediate, Verified 05/27/24 20:40) COUGH Medication List - Last Reconciled 05/27/24 by JENNIFER Garzon No Known Home Meds HPI Comments Details: Kolby is a very pleasant 63-year-old male patient of Dr. Baxter. He has a past medical history of obesity and hypertension. He presents to the office today for follow-up of his nocturia. In discussion with the patient today he reports he was not able to trial terazosin as he had been experiencing GI bug and was not able to hold down much of any of his medications including terazosin. He discusses following up with his PCP regarding ongoing lower leg edema and neck pain he has been experiencing. He reports having stopped all his medications as he feels this contributes to his fatigue and feels better when he does not take them. We discussed importance of taking medications as prescribed. He reports following up with sleep medicine as planned in his due to follow-up next week. He reports he has not had sleep study performed as he has been having issues with insurance coverage. In office urinalysis results reviewed with the patient today. PVR 19 mL. Previous workup has included a retroperitoneal ultrasound and PSA. Ultrasound 02/16 noted bilateral kidneys with no calculi, lesions, and or hydronephrosis. The bladder is well distended and normal. Bladder jets are demonstrated. Pre void bladder volume is approximately 220 mL. Postvoid bladder volume is approximately 30 mL. The prostate was not seen with certainty. What was thought to possibly represent the prostate was of normal volume at 16 mL. PSA 02/16 0.8. We discussed potential causes of lower urinary tract symptoms patient was experiencing. Patient does report episodes of urinary urgency and frequency throughout the day however does not find them as bothersome as his nocturia that is up to 5 times per night. He otherwise denies hematuria, dysuria, foul-smelling urine, changes to urinary stream, flank pain, fever, and or chills. We discussed at length potential causes of lower urinary tract symptoms patient is experiencing as well as importance of weight loss to assist with lower urinary tract symptoms as well as overall health and well- being. We discussed possible near future in office cystoscopy if symptoms continue and or worsen. He otherwise offers no other issues or concerns at this time. [facility] Medical History Loud snoring Hypersomnia Pilonidal cyst Surgical History H/O vasectomy Family History Father No problems noted. Mother No problems noted. Sister Kidney disease Heart disease Social History Household Members: Spouse Housing: House Alcohol intake: current Comment: 2-3 beer Patient Tobacco Use Status: Never used Tobacco Current occupational status: employed Current occupation: [employer] Review of Systems Const All systems reviewed & are unremarkable except as noted in HPI and below Physical Exam Const General: cooperative, comfortable, no acute distress, well developed, alert and awake Nutritional Appearance: obese Orientation/consciousness: patient oriented x3 Limitations: no limitations HEENT Head: Yes normal to inspection, Yes normocephalic and Yes atraumatic Ears: hearing grossly normal bilaterally Eyes General: appearance normal, both eyes and all related structures Neck Neck: Yes normal visual inspection and Yes trachea midline Chest Chest palpation & inspection: normal inspection of the chest Resp Effort & Inspection: normal respiratory effort and able to speak in complete sentences Cardio Rate: regular rate GI Inspection: Yes normal to inspection General: Yes no CVA tenderness Back/Spine/Pelvis Back: no CVA tenderness Skin General skin exam: no rashes or lesions noted Neuro General: patient oriented x3 Extrem General: Yes normal to inspection Psych Appearance: grossly normal and well kempt Mental Status: mental status grossly normal Speech and movement: Normal speech and movement present and Clear speech present Affect: normal affect Attitude: cooperative Thought process: Normal thought process present Thought content: Normal thought content present Insight: Fair insight present (Psych) Judgement: Fair judgement present (Psych) Office Procedures Post Void Residual Post Residual Void Post Void Residual (PVR): 19 [id number] Void Residual by ultrasound Results AMB Urinalysis, Automated UA Leukoctes 0 Lizzy/uL Last Edit by [employer] on 05/27/24 16:25 UA Nitrite Last Edit by [employer] on 05/27/24 16:25 UA Urobilinogen 0.2 mg/dL Last Edit by [employer] on 05/27/24 16:25 UA Protein 0 mg/dL Last Edit by [employer] on 05/27/24 16:25 UA pH 6.0 Last Edit by Clifton BuchananEmpiribox on 05/27/24 16:25 UA Blood 0 Braulio/uL Last Edit by [employer] on 05/27/24 16:25 UA Specific [place] 1.025 Last Edit by [employer] on 05/27/24 16:25 UA Ketone Last Edit by [employer] on 05/27/24 16:25 UA Bilirubin 0 mg/dL Last Edit by [employer] on 05/27/24 16:25 UA Glucose 0 mg/dL Last Edit by [employer] on 05/27/24 16:25 Results Reviewed Results Reviewed: Laboratory Last Values Urine pH (Auto) 6.0 05/27/24 16:24 Specific [place] (Auto) 1.025 05/27/24 16:24 Urine Protein (Auto) 0 mg/dL 05/27/24 16:24 Glucose (UA)(Auto) 0 mg/dL 05/27/24 16:24 Urine Blood (Auto) 0 Braulio/uL 05/27/24 16:24 Urine Bilirubin (Auto) 0 mg/dL 05/27/24 16:24 Urine Urobilinogen (Auto) 0.2 mg/dL 05/27/24 16:24 Leukocyte Esterase (Auto) 0 Lizzy/uL 05/27/24 16:24 Assessment & Plan Assessment & Plan (1) Urinary urgency: Code(s): R39.15 - Urgency of urination Category: Medical (2) Urinary frequency: Code(s): R35.0 - Frequency of micturition Category: Medical (3) Nocturia: Code(s): R35.1 - Nocturia Category: Medical Plan In office urinalysis results reviewed with the patient today; as noted above. PVR 19 mL. Start terazosin 5 mg at bedtime as discussed and prescribed. Continue to follow-up with sleep medicine for further assessment evaluation of potential sleep apnea. Discussed importance of limiting fluids 2-3 hours prior to bed to decrease episodes of nocturia. Discussed bladder triggers/irritants. Discussed possible near future in office cystoscopy and or urodynamics for further assessment evaluation. Follow-up in 1-3 months with PVR; or sooner with any issues, concerns, and or questions. Orders: Orders AMB Post Void Residual by ultrasound Today R39.15 - Urgency of urination AMB Urinalysis Automated Today Z13.9 - Encounter for screening, unspecified Patient Instructions: The patient had an opportunity to ask questions regarding the treatment plan. All questions were answered. Physical exam, labs, and imaging were discussed and reviewed in detail. As well as risks, benefits, and discussion of treatment choices. No major barriers to understanding were identified. The patient expressed understanding and agreement with the above treatment plan. The patient was made aware they should contact our office by phone for worsening of their current condition, the appearance of new symptoms, or with any questions or concerns. Compliance is encouraged with any medications and follow up testing that is ordered. It is a privilege to be allowed the opportunity to participate in? your urological care.? Again, if you have any questions or concerns If you have any questions or concerns please do not hesitate to contact me. The office is [phone]. This note is constructed using voice recognition software. While every effort has been made to ensure accuracy excel specialist errors may have been included. Yours sincerely, JENNIFER Garzon Coding Level of Care Code Est Pt Level 3 (51527) Diagnoses Urinary urgency R39.15 Urinary frequency R35.0 Nocturia R35.1 CPT Codes Post Residual Void - PVR CPT Code: 56332-Vsur Void Residual by ultrasound ([id number])
== END 2024-05-27 16:24 | disposition home or self-care (01) ==
PROVIDERS: PCP Internal Medicine; Visit Provider Nurse Practitioner Family
DX: R39.15 Urgency of urination (principal); R35.0 Frequency of micturition; R35.1 Nocturia; Z13.9 Encounter for screening, unspecified
CPT/HCPCS: 99213

== ENCOUNTER → 2024-05-27 15:47 | Outpatient (BNVA) | payer BC, SELFPAY | PROVIDERS: PCP Internal Medicine; Visit Provider Nurse Practitioner Family | DX: R39.15 Urgency of urination (principal); R35.0 Frequency of micturition; R35.1 Nocturia | CPT/HCPCS: 51798; 81003 ==

== ENCOUNTER → 2024-06-02 15:03 | Outpatient (REF) | payer BC, SELFPAY | LOC: HO.SL 15:03 | PROVIDERS: PCP Internal Medicine; Visit Provider Psychiatry & Neurology Neurology | DX: G47.10 Hypersomnia, unspecified (principal); R06.83 Snoring; R40.0 Somnolence; G47.33 Obstructive sleep apnea (adult) (pediatric) | CPT/HCPCS: 95806 ==

== ENCOUNTER → 2024-06-02 15:18 | Outpatient (BNV) | payer BC, SELFPAY | PROVIDERS: PCP Internal Medicine; Visit Provider Psychiatry & Neurology Neurology | DX: G47.33 Obstructive sleep apnea (adult) (pediatric) (principal) | CPT/HCPCS: 95806 ==

== ENCOUNTER 2024-06-28 10:52 | Outpatient (AMB) | payer BC, SELFPAY ==
[2024-06-28 11:15] VITALS: BMI 50.4
--- NOTE | 2024-06-28 11:15 | MHC.OFFVIS ---
Vital Signs 06/28/24 11:15 Height 6 ft 1 in Weight 382 lb BMI 50.4 Intake Visit Reasons: follow up sleep nocturia Intake Note: Patient presents for follow up sleep nocturia. Allergies azithromycin [From Zithromax Z-Burton] Allergy (Intermediate, Verified 06/28/24 11:17) Diarrhea Penicillins [PENICILLINS] Allergy (Intermediate, Verified 06/28/24 11:17) HIVES lisinopril [LISINOPRIL] Adverse Reaction (Intermediate, Verified 06/28/24 11:17) COUGH HPI Comments Details: 63y/o male comes for follow up. His home sleep test May 2024 was c/w severe Obstructive Sleep Apnea. AHI was 28 and oxygen megan was 81%. [facility] Medical History (Updated 06/28/24 @ 11:48 by Ninfa Coyne MD) Obstructive sleep apnea hypopnea, severe Loud snoring Hypersomnia Pilonidal cyst Surgical History H/O vasectomy Family History Father No problems noted. Mother No problems noted. Sister Kidney disease Heart disease Social History Household Members: Spouse Housing: House Alcohol intake: current Comment: 2-3 beer Patient Tobacco Use Status: Never used Tobacco Current occupational status: employed Current occupation: [employer] Physical Exam Vital Signs: BMI result Body Mass Index 50.4 Const General: cooperative and comfortable Nutritional Appearance: obese Orientation/consciousness: patient oriented x3 Eyes Pupils: Equal, round and reactive pupils present Neuro Other: Malalmpatti grade 4 Neck size 20 General: patient oriented x3, gait normal, moves all extremities and no focal motor deficits Cranial nerves: Yes Facial sensation intact/muscles of mastication intact, Yes Equal, round and reactive pupils present, Yes Bilaterally intact EOM present, Yes Nystagmus not present, Yes Normal facial strength present and Yes Midline tongue present Cognition (Neuro): normal cognition Gait exam (Neuro): Normal gait present Motor exam (neuro): 5/5 motor strength present throughout Psych Appearance: grossly normal Assessment & Plan Assessment & Plan (1) Obstructive sleep apnea hypopnea, severe: Code(s): G47.33 - Obstructive sleep apnea (adult) (pediatric) Category: Medical Plan Discussed sleep study results and various management options I will trial him on AutoPAP 5-20 cm of water and follow up to ensure compliance and therapy response. Coding Level of Care Code Est Pt Level 4 (38943) Diagnoses Obstructive sleep apnea hypopnea, severe G47.33
== END 2024-06-28 11:36 | disposition home or self-care (01) ==
PROVIDERS: PCP Internal Medicine; Visit Provider Psychiatry & Neurology Neurology
DX: G47.33 Obstructive sleep apnea (adult) (pediatric) (principal)
CPT/HCPCS: 99214

== ENCOUNTER 2024-07-20 15:28 | Outpatient (AMB) | payer BC, SELFPAY ==
--- NOTE | 2024-07-20 15:33 | A.OFFVIS_ITS ---
Intake Visit Reasons: 6weeks/PVR Intake Note: Patient presents today for follow up on: incomplete bladder emptying, nocturia, frequency, urgency Urology Medications: Sildenafil Blood Thinner: none PVR: 36ml's Compliance Assistant Required: No Accompanied by: Self / Same As Patient Allergies azithromycin [From Zithromax Z-Burton] Allergy (Intermediate, Verified 07/20/24 17:08) Diarrhea Penicillins [PENICILLINS] Allergy (Intermediate, Verified 07/20/24 17:08) HIVES lisinopril [LISINOPRIL] Adverse Reaction (Intermediate, Verified 07/20/24 17:08) COUGH Medication List - Last Reconciled 07/20/24 by JENNIFER Garzon clotrimazole-betamethasone 1-0.05 % appl topical DAILY sildenafil mg PO HPI Comments Details: Kolby is a very pleasant 64-year-old male patient of Dr. Baxter. He has a past medical history of obesity and hypertension. He presents to the office today for follow-up of his nocturia. In discussion with the patient today he reports significant improvement in episodes of nocturia since his last office visit here. He reports having followed up with sleep medicine and has since started treatment for his sleep apnea with sleep apnea machine. He discusses at length how helpful this has been. He discusses episodes of nocturia have significantly decrease to approximately 2-3 times per night. He reports having stopped urological medication as he feels symptoms have improved since starting CPAP. Previous workup has included a retroperitoneal ultrasound and PSA. Ultrasound 02/16 noted bilateral kidneys with no calculi, lesions, and or hydronephrosis. The bladder is well distended and normal. Bladder jets are demonstrated. Pre void bladder volume is approximately 220 mL. Postvoid bladder volume is approximately 30 mL. The prostate was not seen with certainty. What was thought to possibly represent the prostate was of normal volume at 16 mL. PSA 02/16 0.8. He otherwise denies hematuria, dysuria, foul-smelling urine, changes to urinary stream, flank pain, fever, and or chills. We discussed at length potential causes of lower urinary tract symptoms patient is experiencing as well as importance of weight loss to assist with lower urinary tract symptoms as well as overall health and well-being. We discussed possible near future in office cystoscopy if symptoms continue and or worsen. In office urinalysis results reviewed with the patient today. PVR 36 mL. He otherwise offers no other issues or concerns at this time. [facility] Medical History Obstructive sleep apnea hypopnea, severe Loud snoring Hypersomnia Pilonidal cyst Surgical History H/O vasectomy Family History Father No problems noted. Mother No problems noted. Sister Kidney disease Heart disease Social History Household Members: Spouse Housing: House Alcohol intake: current Comment: 2-3 beer Patient Tobacco Use Status: Never used Tobacco Current occupational status: employed Current occupation: [employer] Review of Systems Const All systems reviewed & are unremarkable except as noted in HPI and below Physical Exam Const General: cooperative, comfortable, no acute distress, well developed, alert and awake Nutritional Appearance: obese Orientation/consciousness: patient oriented x3 Limitations: no limitations HEENT Head: Yes normal to inspection, Yes normocephalic and Yes atraumatic Ears: hearing grossly normal bilaterally Eyes General: appearance normal, both eyes and all related structures Neck Neck: Yes normal visual inspection and Yes trachea midline Chest Chest palpation & inspection: normal inspection of the chest Resp Effort & Inspection: normal respiratory effort and able to speak in complete sentences Cardio Rate: regular rate GI Inspection: Yes normal to inspection General: Yes no CVA tenderness Back/Spine/Pelvis Back: no CVA tenderness Skin General skin exam: no rashes or lesions noted Neuro General: patient oriented x3 Extrem General: Yes normal to inspection Psych Appearance: grossly normal and well kempt Mental Status: mental status grossly normal Speech and movement: Normal speech and movement present and Clear speech present Affect: normal affect Attitude: cooperative Thought process: Normal thought process present Thought content: Normal thought content present Insight: Fair insight present (Psych) Judgement: Fair judgement present (Psych) Office Procedures Post Void Residual Post Residual Void Post Void Residual (PVR): 36 [id number] Void Residual by ultrasound Results AMB Urinalysis, Automated UA Leukoctes 0 Lizzy/uL Last Edit by Clifton Sam on 07/20/24 15:53 UA Nitrite Last Edit by Clifton Sam on 07/20/24 15:53 UA Urobilinogen 0.2 mg/dL Last Edit by Clifton Sam on 07/20/24 15:53 UA Protein 15 mg/dL Last Edit by Clifton Sam on 07/20/24 15:53 UA pH 6.0 Last Edit by Clifton Sam on 07/20/24 15:53 UA Blood 0 Braulio/uL Last Edit by Clifton Sam on 07/20/24 15:53 UA Specific [place] 1.020 Last Edit by Clifton Sam on 07/20/24 15:53 UA Ketone Negative Last Edit by Clifton Sam on 07/20/24 15:53 UA Bilirubin 0 mg/dL Last Edit by Clifton Sam on 07/20/24 15:53 UA Glucose 0 mg/dL Last Edit by Clifton Sam on 07/20/24 15:53 Results Reviewed Results Reviewed: Laboratory Last Values Urine pH (Auto) 6.0 07/20/24 15:33 Specific [place] (Auto) 1.020 07/20/24 15:33 Urine Protein (Auto) 15 mg/dL 07/20/24 15:33 Glucose (UA)(Auto) 0 mg/dL 07/20/24 15:33 Urine Ketones (Auto) Negative 07/20/24 15:33 Urine Blood (Auto) 0 Braulio/uL 07/20/24 15:33 Urine Bilirubin (Auto) 0 mg/dL 07/20/24 15:33 Urine Urobilinogen (Auto) 0.2 mg/dL 07/20/24 15:33 Leukocyte Esterase (Auto) 0 Lizzy/uL 07/20/24 15:33 Assessment & Plan Assessment & Plan (1) Urinary urgency: Code(s): R39.15 - Urgency of urination Category: Medical (2) Urinary frequency: Code(s): R35.0 - Frequency of micturition Category: Medical (3) Nocturia: Code(s): R35.1 - Nocturia Category: Medical Plan In office urinalysis results reviewed with the patient today; as noted above. PVR 36 mL. Stop terazosin. We discussed importance of compliance with CPAP for improvement in nocturia as well as overall health and well-being. We discussed importance of limiting fluids 2-3 hours prior to bed to decrease episodes of nocturia. We discussed importance of weight loss in relation to lower urinary tract symptoms as well as overall health and well-being. Will continue with surveillance monitoring at this time. We discussed potential near future in office cystoscopy and or urodynamics if symptoms arise and or worsen. Follow-up in 3 months with PVR; or sooner with any issues, concerns, and or questions. Orders: Orders AMB Urinalysis Automated Today Z13.9 - Encounter for screening, unspecified AMB Post Void Residual by ultrasound Today R35.0 - Frequency of micturition Patient Instructions: The patient had an opportunity to ask questions regarding the treatment plan. All questions were answered. Physical exam, labs, and imaging were discussed and reviewed in detail. As well as risks, benefits, and discussion of treatment choices. No major barriers to understanding were identified. The patient expressed understanding and agreement with the above treatment plan. The patient was made aware they should contact our office by phone for worsening of their current condition, the appearance of new symptoms, or with any questions or concerns. Compliance is encouraged with any medications and follow up testing that is ordered. It is a privilege to be allowed the opportunity to participate in? your urological care.? Again, if you have any questions or concerns If you have any questions or concerns please do not hesitate to contact me. The office is [phone]. This note is constructed using voice recognition software. While every effort has been made to ensure accuracy worker's compensation claims examiner errors may have been included. Yours sincerely, JENNIFER Garzon Coding Level of Care Code Est Pt Level 3 (45660) Complex EM visit Add On G2211 Diagnoses Urinary urgency R39.15 Urinary frequency R35.0 Nocturia R35.1 CPT Codes Post Residual Void - PVR CPT Code: 09157-Qaze Void Residual by ultrasound ([id number])
== END 2024-07-20 16:14 | disposition home or self-care (01) ==
PROVIDERS: PCP Internal Medicine; Visit Provider Nurse Practitioner Family
DX: R39.15 Urgency of urination (principal); R35.0 Frequency of micturition; R35.1 Nocturia; Z13.9 Encounter for screening, unspecified
CPT/HCPCS: 99213

== ENCOUNTER → 2024-07-20 15:28 | Outpatient (BNVA) | payer BC, SELFPAY | PROVIDERS: PCP Internal Medicine; Visit Provider Nurse Practitioner Family | DX: R39.15 Urgency of urination (principal); R35.0 Frequency of micturition; R35.1 Nocturia | CPT/HCPCS: 51798; 81003 ==

== ENCOUNTER 2024-08-25 10:58 | Outpatient (AMB) | payer BC, SELFPAY ==
--- NOTE | 2024-08-25 11:10 | MHC.OFFVIS ---
Vital Signs 08/25/24 11:11 08/25/24 12:15 Height 6 ft 1 in Weight 286 lb BMI 37.7 BP 170/92 H 150/100 H Blood Pressure Location Lt brachial Lt brachial Position Sitting Pulse 90 Pulse Source Pulse Oximeter Pulse Oximetry (%) 98 Oxygen Delivery Method Room Air Intake Visit Reasons: Follow up 8weeks Intake Note: Patient presents for 2 month follow up MELINDA. Compliance in chart. 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 His home sleep test May 2024 was c/w severe Obstructive Sleep Apnea. AHI was 28 and oxygen megan was 81%. MELINDA Compliance Data 06/2024 - [employer] Total average use is 55/ 65 days, and daily use is 5.5 hours APAP [id number] Leaks average median AHI is <4 He sleeps well at night, still snoring moderately, however feels more refreshed with CPAP use. His BP is elevated today to 150/100 on second reading, he stopped taking Losartan in May 2024, will f/u with PCP next week. Today he c/o of h/o herniated disc, L1-2-3 and 5, S1 pain bilaterally and difficulty sleeping on side which has improved with Accupuncture visits 2x per week and Ibuprofen use. H/o of Parkinson with his dad. He denies numbness or tingling in his back radiating down to the legs. RLS he has an uncomfortable tingling feeling in the feet, denies parasthesias, burning pain, muscle spasms and it does not wake him up at night. He sees a urologist for urgency, frequency and nocturia, denies blood in urine, or pain during urination. His mood is generally relaxed, diet is not great and BMI is elevated he would like to see weight management. Denies morning headache. He is a mouth breather, has a nasal mask. He washes his mask daily and hose weekly, changes the filters and fills the reservoir as needed. Denies smoking, MJ, edibles, drinks socially on the weekends. [facility] Medical History Obstructive sleep apnea hypopnea, severe Loud snoring Hypersomnia Pilonidal cyst Surgical History H/O vasectomy Family History Father No problems noted. Mother No problems noted. Sister Kidney disease Heart disease Social History Household Members: Spouse Housing: House Alcohol intake: current Comment: 2-3 beer Patient Tobacco Use Status: Never used Tobacco Current occupational status: employed Current occupation: [employer] Review of Systems Const All systems reviewed & are unremarkable except as noted in HPI and below Physical Exam Vital Signs: Last Vital Signs Pulse 90 08/25/24 11:11 BP 170/92 H 08/25/24 11:11 Pulse Ox 98 08/25/24 11:11 Oxygen Delivery Method Room Air 08/25/24 11:11 BMI result Body Mass Index 37.7 Const General: cooperative and no acute distress Nutritional Appearance: obese (BMI is 37.7) centrally obese Orientation/consciousness: patient oriented x3 HEENT Face and sinus: Yes normal facial exam and Yes face symmetric Teeth and gingiva: other ([place] score of 3) Eyes Pupils: Equal, round and reactive pupils present Neck Thyroid: other (ROM limited to the right) Resp Effort & Inspection: normal respiratory effort and able to speak in complete sentences Neuro General: patient oriented x3 Cranial nerves: Yes Facial sensation intact/muscles of mastication intact, Yes Equal, round and reactive pupils present, Yes Normal accommodation reflex present, Yes Normal facial strength present, Yes Midline tongue present and Yes Ability to bilaterally elevate shoulders present Gait exam (Neuro): Other gait observations present (stooped at hips) Motor exam (neuro): 5/5 motor strength present throughout and Normal motor muscle tone present throughout Deep tendon reflexes (DTR's): Right triceps reflex intensity grade: 2+, Left triceps reflex intensity grade: 2+, Rt Biceps (C5, C6): 2+, Left biceps reflex intensity grade: 2+, Right brachioradialis reflex intensity grade: 2+, Left brachioradialis reflex intensity grade: 2+, Right patellar reflex intensity grade: 2+ and Left patellar reflex intensity grade: 2+ Psych Thought process: Normal thought process present Thought content: Normal thought content present Results Reviewed Results Reviewed: IMPRESSION: May 2024 - Cervical Spine MRI C3/ C4-5 Limited examination as detailed above. Spondylosis. No acute abnormality. If symptoms persist consider follow-up imaging with CT to further assess given the inability to fully visualize the lower cervical spine Of note this exam was submitted for interpretation on June 08, 2024 MELINDA Compliance Reviewed on [employer] Assessment & Plan Assessment & Plan (1) Obstructive sleep apnea hypopnea, severe: Code(s): G47.33 - Obstructive sleep apnea (adult) (pediatric) Category: Medical (2) Loud snoring: Code(s): R06.83 - Snoring Category: Medical (3) Fatigue due to sleep pattern disturbance: Code(s): R53.83 - Other fatigue; G47.9 - Sleep disorder, unspecified Category: Medical Plan Discussed sleep study results and various management options, will send him for titration study today. I will trial him on AutoPAP 5-20 cm of water and follow up to ensure compliance and therapy response. Fatigue will complete Labs RLS will monitor F/u in 3 months after titration and labs are completed. Orders: Orders RT PSG in-lab sleep titration Today G47.33 - Obstructive sleep apnea (adult) (pediatric) Complete Blood Count no Diff Today G47.33 - Obstructive sleep apnea (adult) (pediatric), G47.9 - Sleep disorder, unspecified, R06.83 - Snoring, R53.83 - Other fatigue Hemoglobin A1c Today G47.9 - Sleep disorder, unspecified, R53.83 - Other fatigue Methylmalonic Acid Today G47.9 - Sleep disorder, unspecified, R53.83 - Other fatigue TSH reflex Free T4 Today G47.9 - Sleep disorder, unspecified, R53.83 - Other fatigue Vitamin D 25-OH Total Today G47.9 - Sleep disorder, unspecified, R53.83 - Other fatigue Vitamin B12 and Folate Today G47.9 - Sleep disorder, unspecified, R53.83 - Other fatigue Comprehensive Met. Panel Today G47.9 - Sleep disorder, unspecified, R53.83 - Other fatigue Ferritin Today G47.9 - Sleep disorder, unspecified, R53.83 - Other fatigue Homocysteine Today G47.9 - Sleep disorder, unspecified, R53.83 - Other fatigue Patient Instructions: Sleep Hygiene provided: set a scheduled bedtime and wake time to help regulate the circadian rhythm and balance the release of pituitary hormones. Sleep in a dark room, temperatures below 68 degrees, and no devices n bed. Limit caffeinated products 6 hours prior to bed, and limit fluids 2-4 hours prior to bed. Gentle night yoga, diffusing essential oils, and playing soft music can be relaxing. BP is elevated on 2 readings today: the number one modifiable risk factor for Cardiovascular risk/ and strokes is good management of HTN, f/u with PCP, and take all meds as prescribed. Lumbar spine MRI May 2024, requested from [facility]. Labs f/u for RLS/ PLMD will f/u with PSG. Coding Level of Care Code Tele Est Pt Level 4 (75735) Diagnoses Obstructive sleep apnea hypopnea, severe G47.33 Loud snoring R06.83 Fatigue due to sleep pattern disturbance R53.83; G47.9 Time Spent (min) 30 Comment Improving.
[2024-08-25 11:11] VITALS: BP 170/92; PULSE 90; O2SAT 98; BMI 37.7
[2024-08-25 12:15] VITALS: BP 150/100
== END 2024-08-25 12:13 | disposition home or self-care (01) ==
LOC: HO.HSMS 10:59
PROVIDERS: PCP Internal Medicine; Visit Provider Physician Assistant Medical
DX: G47.33 Obstructive sleep apnea (adult) (pediatric) (principal); R06.83 Snoring; R53.83 Other fatigue; G47.9 Sleep disorder, unspecified
CPT/HCPCS: 99214

== ENCOUNTER 2024-08-28 09:48 | Outpatient (REF) | payer BC, SELFPAY ==
[2024-08-28 11:59] LABS: Estimated Average Glucose 123 mg/dL; Hemoglobin A1C 174.9549 umol/L; Hemoglobin A1c % 5.9 % (<6.0); Total Hemoglobin (HGBA1C) 4299.3797 umol/L
[2024-08-28 12:05] LABS: Hematocrit 49.4 % (42.0-52.0); Hemoglobin 16.5 g/dl (14.0-18.0); Mean Corpuscular HGB Conc 33.4 g/dl (31.0-36.0); Mean Corpuscular Hemoglobin 30.1 pg (27.0-33.0); Mean Platelet Volume 10.4 fL (9.4-12.4); Platelet Count 173 X10*3/uL (160-400); Red Blood Count 5.49 X10*6/uL (4.60-5.80); Red Cell Distribution Width 14.7 % (11.0-16.0)
[2024-08-28 12:23] LABS: Alanine Aminotransferase 29 U/L (0-40); Albumin Level 4.3 g/dL (3.5-5.0); Alkaline Phosphatase 90 U/L (39-117); Anion Gap 9 (12-20); Aspartate Amino Transferase 20 U/L (5-37); Bilirubin Total 0.7 mg/dL (0.0-1.0); Blood Urea Nitrogen 13 mg/dL (9-16); Calcium 9.4 mg/dL (8.4-10.2); Carbon Dioxide 27 mmol/L (22-29); Chloride 107 mmol/L (96-108); Estimated Glomerular Filt Rate > 60; Glucose Random 107 mg/dL (60-115); Potassium 4.3 mmol/L (3.3-5.1); Sodium 139 mmol/L (135-145); Total Protein 7.5 g/dL (6.5-8.0)
[2024-08-28 12:25] LABS: Ferritin 125 ng/mL (20-250); TSH reflex Free T4 1.28 uIU/mL (0.32-4.0); Vitamin D 25-OH Total 34.8 ng/mL (>30)
[2024-08-28 13:16] LABS: Vitamin B12 547 pg/mL (200-900)
[2024-09-01 18:19] LABS: Methylmalonic Acid 207 nmol/L (69-390)
== END 2024-08-28 09:49 | disposition home or self-care (01) ==
LOC: HO.HMGCLDS 09:48
PROVIDERS: PCP Internal Medicine; Visit Provider Physician Assistant Medical
DX: G47.33 Obstructive sleep apnea (adult) (pediatric) (principal); R53.83 Other fatigue; R06.83 Snoring; Z13.1 Encounter for screening for diabetes mellitus
CPT/HCPCS: 36415; 80053; 82306; 82607; 82728; 82746; 83036; 83921; 84443; 85027

== ENCOUNTER 2024-09-04 10:33 | Outpatient (REF) | payer BC, SELFPAY ==
[2024-09-13 11:53] LABS: Homocysteine 9.8 umol/L (<11.4)
== END 2024-09-04 10:34 | disposition home or self-care (01) ==
LOC: HO.LAB 10:33
PROVIDERS: PCP Internal Medicine; Visit Provider Physician Assistant Medical
DX: R53.83 Other fatigue (principal); G47.9 Sleep disorder, unspecified
CPT/HCPCS: 36415; 83090

== ENCOUNTER 2024-09-08 08:47 | Outpatient (AMB) | payer BC, SELFPAY ==
--- NOTE | 2024-09-08 08:52 | A.OFFVIS_ITS ---
Vital Signs 09/08/24 08:53 Height 6 ft 1 in Weight 376 lb BMI 49.6 BP 155/72 H Blood Pressure Location Rt radial Position Sitting Pulse 85 Intake Visit Reasons: 4 cm ulcer on right leg Intake Note: Patient referred by pcp Dr. Baxter for cellulitis on Rt lower leg. Present for 2wks. Currently on Doxycycline course. Patient c/o: painful, opened, enlarging, oozing. 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 He has history of varicose veins. He does significant prolonged standing at his place of employment. This has been present for several weeks time. He is undergoing local wound care and was given antibiotics and presents here for further evaluation. He has never had such issues before. Chart was reviewed and patient evaluated. [facility] Medical History Obstructive sleep apnea hypopnea, severe Loud snoring Hypersomnia Pilonidal cyst Surgical History H/O vasectomy Family History Father No problems noted. Mother No problems noted. Sister Kidney disease Heart disease Social History Household Members: Spouse Housing: House Alcohol intake: current Comment: 2-3 beer Patient Tobacco Use Status: Never used Tobacco Current occupational status: employed Current occupation: [employer] Physical Exam Vital Signs: Last Vital Signs Pulse 85 09/08/24 08:53 BP 155/72 H 09/08/24 08:53 BMI result Body Mass Index 49.6 Const Other: Very corpulent male. Extrem Other: Several varicosities involving the right lower extremity. Venous stasis ulcer on the anterior medial mid leg measuring roughly 4 x 3 cm. Granulating tissue. Dressing with bacitracin applied. Assessment & Plan Assessment & Plan (1) Venous stasis ulcer: Code(s): I83.009 - Varicose veins of unspecified lower extremity with ulcer of unspecified site; L97.909 - Non-pressure chronic ulcer of unspecified part of unspecified lower leg with unspecified severity Category: Surgical Plan Findings were reviewed with the patient. I strongly recommended he avoid prolonged standing, I recommend he obtain Jobst stockings and a medical supply store for external compressive support, he has been given local instructions were form of bacitracin with a dressing/wrap. He will see me in 2 weeks' time for follow-up. If this works, the ulcer should start to slowly but steadily improved. If not, he may require an Unna boot and/or wound care clinic consult. I discussed with him that this area of the leg is 1 of the hardest areas to heal unless he does what we recommended including prolonged standing an elevated in the extremity as much as possible. All questions answered. He will see me as directed as noted above or p.r.n. Coding Level of Care Code New Pt Level 4 (18168) Diagnoses Venous stasis ulcer I83.009; L97.909
[2024-09-08 08:53] VITALS: BP 155/72; PULSE 85; BMI 49.6
== END 2024-09-08 09:14 | disposition home or self-care (01) ==
PROVIDERS: PCP Internal Medicine; Visit Provider Surgery
DX: I83.009 Varicose veins of unspecified lower extremity with ulcer of unspecified site (principal); L97.909 Non-pressure chronic ulcer of unspecified part of unspecified lower leg with unspecified severity
CPT/HCPCS: 99204

== ENCOUNTER → 2024-09-08 08:47 | Outpatient (BNVA) | payer BC, SELFPAY | PROVIDERS: PCP Internal Medicine; Visit Provider Surgery ==

== ENCOUNTER 2024-09-14 14:58 | Outpatient (AMB) | payer BC, SELFPAY ==
[2024-09-14 15:28] VITALS: BP 140/96; PULSE 90; RESP 16; TEMP 36.6; O2SAT 96; BMI 36.5
--- NOTE | 2024-09-14 15:28 | A.OFFPC_ITS ---
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 Required: No Accompanied by: Self / Same As Patient Allergies azithromycin [From Zithromax Z-Burton] Allergy (Intermediate, Verified 09/14/24 16:00) Diarrhea Penicillins [PENICILLINS] Allergy (Intermediate, Verified 09/14/24 16:00) HIVES lisinopril [LISINOPRIL] Adverse Reaction (Intermediate, Verified 09/14/24 16:00) COUGH Medication List - Last Reconciled 09/14/24 by Lizzy Hrerera PA-C clotrimazole-betamethasone 1-0.05 % appl topical DAILY ibuprofen 800 mg PO TID losartan 50 mg PO DAILY sildenafil mg PO Tobacco use date assessed: 09/14/24 Dental Screening Dental Screen Date: 09/14/24 Did you have a dental visit in the last 12 months?: Yes Did you have a dental problem in the last 6 months where you did not have access to dental care?: No Was dental information given to patient?: Patient has dentist HPI Establish Care HPI Details The patient is a 64-year-old male presenting to establish a new primary care provider. He reports he has a past medical history of essential hypertension and a venous ulcer. His hypertension has been treated with losartan, initially dosed incorrectly at 100 mg instead of the intended 50 mg. He monitors his blood pressure regularly, with higher values typically noted in the afternoon. During a recent visit for ulcer care with a general surgeon, the reading was noted to be 155/72. The patient's venous ulcer on the leg is managed with light bandaging and bi-we ekly check-ups. There has been no referral for vascular surgery despite the presence of varicose veins in the family history. Prediabetes, with an A1c of 5.9%, is being managed through proposed dietary adjustments, as the patient is not keen on pharmacotherapy at this stage. Additionally, obstructive sleep apnea symptoms have improved significantly with the use of CPAP therapy. He has previously undergone a colonoscopy, revealing no significant findings, with another due given the interval since his last. Social history - Denies tobacco use and never smoked. - No current alcohol intake discussed. - Reports adherence to dietary modificat ions for prediabetes management. - Engages with healthcare services regul neli. - Denies significant weight management s trategies, expresses interest in non- pharmaceutical methods for weight control. [facility] Medical History Severe obesity with body mass index (BMI) of 36.0 to 36.9 with serious comorbidity Prediabetes Establishing care with new doctor, encounter for Erectile dysfunction Hypertension Obstructive sleep apnea hypopnea, severe Loud snoring Hypersomnia Pilonidal cyst Surgical History History of colonoscopy H/O vasectomy Family History Father No problems noted. Mother No problems noted. Sister Kidney disease Heart disease Social History Household Members: Spouse Housing: House Alcohol intake: current Alcohol intake frequency: a few times a month Comment: 2-3 beer Patient Tobacco Use Status: Never used Tobacco service: No Current occupational status: employed Current occupation: [employer] Cognitive needs: No Hearing needs: No Vision needs: Yes (reading glasses) Questionnaire PHQ-9 Over the last 2 weeks, how often have you been bothered by any of the following problems? 1. Little interest or pleasure in doing things: not at all 2. Feeling down, depressed, or hopeless: not at all 3. Trouble falling or staying asleep, or sleeping too much: several days 4. Feeling tired or having little energy: several days 5. Poor appetite or overeating: not at all 6. Feeling bad about yourself - or that you are a failure or have let yourself or your family down: not at all 7. Trouble concentrating on things, such as reading the newspaper or watching television: not at all 8. Moving or speaking so slowly that other people could have noticed. Or the opposite - being so fidgety or restless that you have been moving around a lot more than usual: not at all 9. Thoughts that you would be better off or of hurting yourself in some way: not at all Total score: 2 Depression Screening Interpretation: Negative Depression Screening Done: Yes 51650 - PHQ-9 Billing: Yes Source: Developed by Drs. Rock Cordero, Marilin Chaudhary, Bo Bowser and colleagues, with an educational solomon from [employer]. Thrive Questionnaire Date Thrive assessed: 09/14/24 I am a: Patient What is your living situation today?: I have a steady place to live Within the past 12 months, did the food you bought not last and you didn't have the money to get more?: Never true Within the past 12 months, did you worry whether your food would run out before you got money to buy more?: Never true Do you have trouble paying for medicines?: No Do you have trouble getting transportation to medical appointments?: No Do you have trouble paying your heating and electricity bill?: No Do you have trouble taking care of your child, family member or friend?: No Do you have trouble with day-to-day activities such as bathing, preparing meals, shopping, managing finances, etc.?: No Are you currently unemployed and looking for a job?: No Are you interested in more education?: No Please select the resources that you would like help with: None THRIVE Score: 0 AUDIT C Alcohol Use Questionnaire (AUDIT-C) 1. How often do you have a drink containing alcohol?: 2-4 times a month 2. How many drinks containing alcohol do you have on a typical day when you are drinking?: 1 or 2 3. How often do you have six or more drinks on one occasion?: Never Total Score: 2 Score Reviewed/Action Taken: No EUGENE-7 AMB Questionnaire EUGENE-7 Date EUGENE - 7 assessed: 09/14/24 Feeling nervous, anxious, or on edge: 0 = Not at all Not being able to stop or control worryin = Not at all Worrying too much about different things: 0 = Not at all Trouble relaxin = Not at all Being so restless that it is hard to sit still: 0 = Not at all Becoming easily annoyed or irritable: 0 = Not at all Feeling afraid as if something awful might happen: 0 = Not at all Total EUGENE-7 score (0-4 normal; 5-9 mild; 10-14 moderate; 15-21 severe): 0 Source: Developed by Drs. Rock Cordero, Marilin Chaudhary, Bo Bowser and colleagues, with an educational solomon from [employer]. EUGENE-7 Assessment Billing EUGENE-7 Assessment Tool: EUGENE-7 Assessment 50154 Review of Systems Const Details: - Cardiovascular: Reports elevated blood pressure. - Dermatological: Reports presence of venous ulcer. - Endocrine: Reports prediabetes. - Respiratory: Denies difficulty in breathing during the day; reports improved sleep with CPAP. - Neurological: Denies depression symptoms; reports improved alertness with CPAP. - Gastrointestinal: Denies blood in stool. - Genitourinary: Reports frequent nighttime urination. - Musculoskeletal: Denies any musculoskeletal complaints. - Allergies: Not discussed. Physical exam (Primary Care) Vital Signs: Last Vital Signs Temp 97.8 F 09/14/24 15:28 Pulse 90 09/14/24 15:28 Resp 16 09/14/24 15:28 BP 140/96 H 09/14/24 15:28 Pulse Ox 96 09/14/24 15:28 Oxygen Delivery Method Room Air 09/14/24 15:28 Care Plan Goal for BP management: <130/90 patient will monitor his blood p ressure and bring a blood pressure diary at his next appointment he will continue losartan 50 mg if his blood pressure continues to be elevated will increase to 100 mg of losartan patient agrees with this BMI result Body Mass Index 36.5 BMI Assessment/Plan discussion: High BMI High, discussed plan: lifestyle, weight reduction, dietary, physical activity and alcohol moderation Tobacco/Smoking Status: Tobacco use Status Tobacco use date assessed 09/14/24 09/14/24 15:29 Patient Tobacco Use Status Never used Tobacco 09/14/24 15:56 PHQ-9: PHQ-9 Score PHQ-9: Total score 2 09/14/24 16:02 Depression Screening Interpretation: Negative Thrive Assessment: Date of Thrive Assessment Date Thrive assessed 09/14/24 09/14/24 15:29 Const Other: Appearance: Alert. Oriented X3. No acute distress. Head: Normal external exam. Normocephalic. Atraumatic. Eyes: Pupils are equal, round, and reactive to light. Extraocular movements intact. Conjunctiva and sclera normal. Eyelids normal. Ears: External auditory canal normal. Tympanic membranes normal. Throat: Pharynx normal. Uvula midline. Moist mucous membranes. Neck: Normal inspection. Neck supple. Full range of motion. No adenopathy. Thyroid Normal. No meningeal signs. No neck mass noted. Cardiovascular: Normal heart rate and rhythm. Heart sound normal. No murmurs noted. Pulses normal throughout. Respiratory: No respiratory distress. Painless inspiration. Breath sounds normal. No wheezes/rales/rhonchi noted. Chest nontender. No accessory muscle usage noted or decreased air movement noted. Abdomen: Soft and nontender. Bowel sounds normal in all 4 quadrants. No distention noted. No organomegaly noted. No visible injury noted. Back: No costovertebral angle tenderness. Full range of motion noted. Skin: Skin warm and dry. Normal skin color. Normal skin turgor. No rashes/lesions/lacerations noted. Venous ulcer noted on the leg. Extremities: No lower extremity edema. Extremities exhibit normal range of motion. Extremities nontender. Neuro: Oriented X 3. No motor deficit. No sensory deficit. Reflexes normal. Results Reviewed Results Reviewed: - Labs: A1c 5.9%; indicative of prediabetes. - Labs: Routine CBC and chemistry panel within normal limits. - Tests: Colonoscopy (last performed in , repeat indicated). Coding Level of Care Code New Pt Level 4 (50358) Complex EM visit Add On G2211 Diagnoses Establishing care with new doctor, encounter for Z. Venous stasis ulcer I83.009; L97.909 Prediabetes R73.03 Erectile dysfunction N52.9 Hypertension I10 Obstructive sleep apnea hypopnea, severe G47.33 Severe obesity with body mass index (BMI) of 36.0 to 36.9 with serious comorbidity E66.01; Z68.36 Additional Codes EUGENE-7 Assessment Billing - EUGENE-7 Assessment Tool: EUGENE-7 Assessment 66801 ([id number]) PHQ-9 - 56062 - PHQ-9 Billing: Yes ([id number]) Assessment & Plan Assessment & Plan (1) Establishing care with new doctor, encounter for: Code(s): Z76.89 - Persons encountering health services in other specified circumstances Category: Medical Plan: Patient was a patient of Dr. Patiño. Dr. Baxter retired. Will obtain medical records. Establishing care with a new provider. (2) Venous stasis ulcer: Code(s): I83.009 - Varicose veins of unspecified lower extremity with ulcer of unspecified site; L97.909 - Non-pressure chronic ulcer of unspecified part of unspecified lower leg with unspecified severity Category: Surgical Plan: A follow-up with a wound clinic and potential vascular surgery evaluation is advised for comprehensive management, with a continuation of current care at bi- weekly intervals. Condition is subacute and stable will continue to monitor. (3) Prediabetes: Code(s): R73.03 - Prediabetes Category: Medical Plan: Emphasis is placed on dietary modification over medication, with ongoing A1c monitoring to assess progression and risk stratification. Condition is chronic and stable continue to monitor. (4) Erectile dysfunction: Code(s): N52.9 - Male erectile dysfunction, unspecified Category: Medical Plan: Sildenafil is continued for use as needed, with future evaluation planned to monitor efficacy and side effects. Condition is chronic and stable continue to monitor. (5) Hypertension: Code(s): I10 - Essential (primary) hypertension Category: Medical Plan: The patient is advised to maintain blood pressure monitoring and target readings consistently below 130/90 mmHg, with potential for medication adjustment based on further observation. Condition is chronic and stable will continue losartan 50 mg daily. (6) Obstructive sleep apnea hypopnea, severe: Comment: On CPAP Code(s): G47.33 - Obstructive sleep apnea (adult) (pediatric) Category: Medical Plan: Continued use of CPAP therapy is recommended, with a reassessment of effectiveness in upcoming follow-up visits. Condition is chronic and stable continue to monitor. (7) Severe obesity with body mass index (BMI) of 36.0 to 36.9 with serious comorbidity: Code(s): E66.01 - Morbid (severe) obesity due to excess calories; Z68.36 - Body mass index [BMI] 36.0-36.9, adult Category: Medical Plan: Patient to improve his diet and exercise regimen. Condition is chronic and stable continue to monitor. Plan Plan Patient was informed and verbally consented to the use of an ambient scribe for clinic note documentation during this visit. 1. Erectile Dysfunction Sildenafil is continued for use as needed, with future evaluation planned to monitor efficacy and side effects. 2. Essential Hypertension The patient is advised to maintain blood pressure monitoring and target readings consistently below 130/90 mmHg, with potential for medication adjustment based on further observation. 3. Venous Ulcer A follow-up with a wound clinic and potential vascular surgery evaluation is advised for comprehensive management, with a continuation of current care at bi- weekly intervals. 4. Obstructive Sleep Apnea Continued use of CPAP therapy is recommended, with a reassessment of effectiveness in upcoming follow-up visits. 5. Prediabetes Emphasis is placed on dietary modification over medication, with ongoing A1c monitoring to assess progression and risk stratification. We discussed the management of multiple conditions, including essential hypertension, venous ulcer care, prediabetes, and obstructive sleep apnea. I emphasized the importance of regular blood pressure monitoring, aiming for readings of <130/90 mmHg. Should his pressures remain elevated, an increase in the losartan dosage may become necessary. The patient understands this possibility. I explained the prediabetes diagnosis, with options for pharmacological intervention via metformin; however, the patient prefers dietary changes to attempt control first. We discussed adjusting his diet to reduce sugary, starchy foods and increase nutrient-rich alternatives as primary preventive strategies. For the venous ulcer, I proposed a specialized clinic referral to affirm proper long-term management, recommending supportive measures and assessing the need for a vascular consult. Concerning obstructive sleep apnea, I reviewed the benefits of CPAP therapy and encouraged continued compliance. We will assess efficacy in future visits to determine any need for adjustment. Orders: Orders Lipid Panel Today Z00.00 - Encounter for general adult medical examination without abnormal findings Referrals Gastroenterology Referral Z12.11 - Encounter for screening for malignant neoplasm of colon Wound Care Referral I83.009 - Varicose veins of unspecified lower extremity with ulcer of unspecified site, L97.909 - Non-pressure chronic ulcer of unspecified part of unspecified lower leg with unspecified severity Vascular Surgery Referral I83.009 - Varicose veins of unspecified lower extrem ity with ulcer of unspecified site, L97.909 - Non-pressure chronic ulcer of unspecified part of unspecified lower leg with unspecified severity Patient Instructions: - Monitor blood pressure regularly, aiming for readings <130/90 mmHg. - Take losartan as discussed and record blood pressure results, especially two hours after taking it. - Follow the dietary guidelines discussed to help manage blood sugar levels. - Use the CPAP machine consistently for sleep apnea. - Follow up with specialist visits as advised, and return to the office for reassessment of blood pressure and other conditions. - Maintain regular visual and dental check-ups. - Stay alert to changes in the ulcer or new symptoms and seek care accordingly.
== END 2024-09-14 16:18 | disposition home or self-care (01) ==
LOC: HO.HMCSH 14:58
PROVIDERS: PCP Internal Medicine; Visit Provider Physician Assistant Medical
DX: Z76.89 Persons encountering health services in other specified circumstances (principal); I83.009 Varicose veins of unspecified lower extremity with ulcer of unspecified site; L97.909 Non-pressure chronic ulcer of unspecified part of unspecified lower leg with unspecified severity; R73.03 Prediabetes; N52.9 Male erectile dysfunction, unspecified; I10 Essential (primary) hypertension; G47.33 Obstructive sleep apnea (adult) (pediatric); E66.01 Morbid (severe) obesity due to excess calories; Z68.36 Body mass index [BMI] 36.0-36.9, adult

== ENCOUNTER → 2024-09-14 14:58 | Outpatient (BNVA) | payer BC, SELFPAY | PROVIDERS: PCP Internal Medicine; Visit Provider Physician Assistant Medical | DX: Z76.89 Persons encountering health services in other specified circumstances (principal); I83.009 Varicose veins of unspecified lower extremity with ulcer of unspecified site; L97.909 Non-pressure chronic ulcer of unspecified part of unspecified lower leg with unspecified severity; R73.03 Prediabetes; N52.9 Male erectile dysfunction, unspecified; I10 Essential (primary) hypertension; G47.33 Obstructive sleep apnea (adult) (pediatric); E66.01 Morbid (severe) obesity due to excess calories; Z68.36 Body mass index [BMI] 36.0-36.9, adult; Z79.899 Other long term (current) drug therapy; Z99.89 Dependence on other enabling machines and devices | CPT/HCPCS: 96127 ==

== ENCOUNTER 2024-09-21 11:03 | Outpatient (AMB) | payer BC, SELFPAY ==
--- NOTE | 2024-09-21 11:10 | A.OFFVIS_ITS ---
Vital Signs 09/21/24 11:14 Height 6 ft 1 in Weight 277 lb BMI 36.5 BP 140/98 H Blood Pressure Location Rt brachial Position Sitting Pulse 98 Intake Visit Reasons: F/u Ulcer~ Rt lower leg Intake Note: Patient here for 2wk follow up Ulcer on Rt lower leg. Wearing compression stockings. Patient c/o: still noticing yellowish discharge on bandage. Denies bleeding. 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 Accompanied by: Self / Same As Patient Allergies azithromycin [From Zithromax Z-Burton] Allergy (Intermediate, Verified 09/21/24 11:10) Diarrhea Penicillins [PENICILLINS] Allergy (Intermediate, Verified 09/21/24 11:10) HIVES lisinopril [LISINOPRIL] Adverse Reaction (Intermediate, Verified 09/21/24 11:10) COUGH Medication List - Last Reconciled 09/21/24 by Gigi Banerjee MD clotrimazole-betamethasone 1-0.05 % appl topical DAILY ibuprofen 800 mg PO TID losartan 50 mg PO DAILY sildenafil mg PO HPI HPI F/u Ulcer~ Rt lower leg: Details: He is here for follow-up for his venous ulcer of the right lower leg. He is being followed by Dr. Guerrero. He says that since his last visit with Dr. Guerrero, the ulcer has dried up and has very scanty drainage anymore. He says this area feels better as well. He says he is scheduled to see a vascular surgeon next week. [facility] Medical History Severe obesity with body mass index (BMI) of 36.0 to 36.9 with serious comorbidity Prediabetes Establishing care with new doctor, encounter for Erectile dysfunction Hypertension Obstructive sleep apnea hypopnea, severe Loud snoring Hypersomnia Pilonidal cyst Surgical History History of colonoscopy H/O vasectomy Family History Father No problems noted. Mother No problems noted. Sister Kidney disease Heart disease Social History Household Members: Spouse Housing: House Alcohol intake: current Alcohol intake frequency: a few times a month Comment: 2-3 beer Patient Tobacco Use Status: Never used Tobacco service: No Current occupational status: employed Current occupation: [employer] Cognitive needs: No Hearing needs: No Vision needs: Yes (reading glasses) Review of Systems Const Details: Morbidly obese Denies chills and Denies fever(s) Card Denies chest pain Resp Denies cough GI Denies abdominal pain Physical Exam Vital Signs: Last Vital Signs Pulse 98 09/21/24 11:14 BP 140/98 H 09/21/24 11:14 BMI result Body Mass Index 36.5 Const Other: Morbidly obese General: comfortable and no acute distress Resp Effort & Inspection: normal respiratory effort GI Other: Protuberant Palpation (GI): Soft to palpation Extrem Other: Right lower leg anteriorly is note of a dry venous ulcer, about 3 cm in widest dimension; he does have significant varicosities on the same leg as well; he was note of a thin scab Assessment & Plan Assessment & Plan (1) Venous stasis ulcer: Code(s): I83.009 - Varicose veins of unspecified lower extremity with ulcer of unspecified site; L97.909 - Non-pressure chronic ulcer of unspecified part of unspecified lower leg with unspecified severity Category: Surgical Plan: The area is now dry and has a thin scab. I told him that he should continue wearing the compression stockings to help with the healing He is to see the vascular surgeon for input next week. I told him that he can follow up with us on a p.r.n. basis especially if he requires debridement down the line. Coding Level of Care Code Est Pt Level 3 (46103) Diagnoses Venous stasis ulcer I83.009; L97.909
[2024-09-21 11:14] VITALS: BP 140/98; PULSE 98; BMI 36.5
== END 2024-09-21 11:28 | disposition home or self-care (01) ==
LOC: HO.HGS 11:03
PROVIDERS: PCP Internal Medicine; Visit Provider Surgery
DX: I83.009 Varicose veins of unspecified lower extremity with ulcer of unspecified site (principal); L97.909 Non-pressure chronic ulcer of unspecified part of unspecified lower leg with unspecified severity
CPT/HCPCS: 99213

== ENCOUNTER 2024-09-23 15:00 | Outpatient (AMB) | payer BC, SELFPAY ==
--- NOTE | 2024-09-23 15:09 | A.OFFVIS_ITS ---
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 States he has an ulcer on right lower leg. States it has been around 6 weeks. Accompanied by: Self / Same As Patient Allergies azithromycin [From Zithromax Z-Burton] Allergy (Intermediate, Verified 09/23/24 15:14) Diarrhea Penicillins [PENICILLINS] Allergy (Intermediate, Verified 09/23/24 15:14) HIVES lisinopril [LISINOPRIL] Adverse Reaction (Intermediate, Verified 09/23/24 15:14) COUGH HPI HPI INTELLECTUAL PROPERTY PARALEGAL/NON-healing wound: Details: Kolby is presenting today for concerns of a nonhealing wound of the right lower extremity. He has been seen by Gen Brito and referred to our clinic. He states he has had this ulcer for >6w now and it waxes and wanes. He states there is a varicosity above the ulcer that has popped out more. He denies any injury to the area. Complaints include pain over varicosities, swelling, and fatigue of the lower extremities. It has been affecting their daily activities including walking, standing, and physical activity. It is noted more so in the right leg. He states the pain over the varicosities have worsened over the last 6 weeks. He is a nonsmoker and is not a diabetic. There is a significant family hx of varicose veins, his mother and sister have both had VV ablated. Patient denies any previous venous surgery or injections. Patient denies any history of DVT/ PE. Patient denies any history of phlebitis. Trial of compression includes - compression stockings daily, elevation at night They now present for vascular evaluation regarding their varicose veins. [facility] Medical History Severe obesity with body mass index (BMI) of 36.0 to 36.9 with serious comorbidity Prediabetes Establishing care with new doctor, encounter for Erectile dysfunction Hypertension Obstructive sleep apnea hypopnea, severe Loud snoring Hypersomnia Pilonidal cyst Surgical History History of colonoscopy H/O vasectomy Family History Father No problems noted. Mother No problems noted. Sister Kidney disease Heart disease Social History Household Members: Spouse Housing: House Alcohol intake: current Alcohol intake frequency: a few times a month Comment: 2-3 beer Patient Tobacco Use Status: Never used Tobacco service: No Current occupational status: employed Current occupation: [employer] Cognitive needs: No Hearing needs: No Vision needs: Yes (reading glasses) Review of Systems Const Reports as per HPI and Denies weakness ENT Reports Normal hearing present and Denies dizziness Card Reports as per HPI, Denies chest pain, Denies chest pain at rest, Denies chest pain with activity, Denies dyspnea and Denies dyspnea on exertion Resp Reports as per HPI, Denies cough, Denies dyspnea and Denies dyspnea on exertion GI Reports as per HPI, Denies abdominal pain, Denies nausea and Denies vomiting Musc Denies numbness Skin/Breast Reports as per HPI, Denies erythema and Denies wounds Neuro Reports Normal hearing present, Denies dizziness, Denies numbness, Denies Sensory deficit (Neuro) and Denies weakness Psych Reports no additional complaints Endo Reports no additional complaints Physical Exam Const General: healthy appearing and no acute distress Orientation/consciousness: patient oriented x3 HEENT Head: Yes normal to inspection Ears: hearing grossly normal bilaterally Mouth: Normal oral and palatal mucosa present Resp Effort & Inspection: normal respiratory effort and able to speak in complete sentences Auscultation: clear to auscultation bilaterally Cardio Jugular venous distension: no JVD Rate: regular rate Rhythm: regular rhythm Heart sounds: S1 normal heart sound present and S2 normal heart sound present Bruits: no abdominal aortic bruits, no carotid bruits, no femoral bruits and no renal bruits Peripheral pulses: Peripheral pulses 2+ throughout GI Inspection: Yes normal to inspection Palpation (GI): No Abdominal aortic bruit present Skin General skin exam: no rashes or lesions noted Wounds: no wounds Hair: normal Neuro General: patient oriented x3 Cranial nerves: Yes Normal hearing present Cognition (Neuro): normal cognition Gait exam (Neuro): Normal gait present Motor exam (neuro): 5/5 motor strength present throughout Sensory Exam: No Sensory deficit (Neuro) Extrem Other: Right lower extremity: medial aspect appx 4cm below the pretibial area is a 3.3cmx2.8cm round ulceration. No bleeding or drainage noted. Wound bed is pink/red granulation tissue. No slough noted. +1 peripheral edema noted. Slight discoloration noted around the ankles. Palpable DP pulse. CEAP: C - 4 E - primary A - superficial P - reflux General: Yes normal to inspection, Yes full ROM, Yes capillary refill normal and Yes normal gait Assessment & Plan Assessment & Plan (1) Varicose veins of both lower extremities with inflammation: Code(s): I83.11 - Varicose veins of right lower extremity with inflammation; I83.12 - Varicose veins of left lower extremity with inflammation Category: Medical Plan: Kolby is presenting today for concerns of a nonhealing ulcer on the right lower extremity and varicosities. I applied an Allevyn dressing, which the pt can keep on for 2-3 days, depending on drainage. In short, the patient has evidence of venous insufficiency. I have discussed the pathophysiology with the patient. In addition I have provided informational material regarding venous disease to the patient. We have discussed conservative measures including compression, elevation, and exercise. We discussed the importance of continuing to wear compression stockings. I have taken the liberty of ordering venous insufficiency testing with the patient. They will follow up with me after testing. The patient had an opportunity to ask questions regarding the treatment plan. All questions were answered. Imaging studies, laboratory studies and physical exam results were discussed and reviewed in detail. No major barriers to understanding were identified. The patient expressed understanding and agreement with the above treatment plan. The patient is aware they should contact our office by phone for worsening of the current condition or the appearance of new symptoms. Thank you for allowing me to participate in the vascular care of this patient. If you have any questions or concerns regarding the treatment for the above condition please do not hesitate to contact me. The office telephone contact is [phone]. This note is constructed using voice recognition software. While every effort has been made to ensure accuracy, surgical technician errors may have been included. Thank you for allowing me to participate in the care of your patient. Yours sincerely, MONICA Jason Orders: Orders US venous duplex LE BI 1 Week I83.009 - Varicose veins of unspecified lower extremity with ulcer of unspecified site, I83.11 - Varicose veins of right lower extremity with inflammation, I83.12 - Varicose veins of left lower extremity with inflammation, L97.909 - Non-pressure chronic ulcer of unspecified part of unspecified lower leg with unspecified severity Coding Level of Care Code New Pt Level 4 (65802) Diagnoses Varicose veins of both lower extremities with inflammation I83.11; I83.12
== END 2024-09-23 15:37 | disposition home or self-care (01) ==
LOC: HO.HVS 15:00
PROVIDERS: PCP Internal Medicine; Visit Provider Physician Assistant Surgical
DX: I83.11 Varicose veins of right lower extremity with inflammation (principal); I83.12 Varicose veins of left lower extremity with inflammation
CPT/HCPCS: 99204

== ENCOUNTER 2024-10-07 15:24 | Outpatient (AMB) | payer BC, SELFPAY ==
--- NOTE | 2024-10-07 15:29 | MHC.OFFVIS ---
Vital Signs 10/07/24 15:30 Height 6 ft 1 in Weight 277 lb BMI 36.5 Intake Visit Reasons: 2 week follow up wound check Intake Note: 2 week folow up for Right LE non healing pre tibial wound starting about 2 months ago. Changes dressing daily, uses non-adhesive pad w/ compression socks that hold in place while working daily. States at night the wound is open to air and looks good in the a.m.. 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 He states he feels that the wound is getting better. He states that he did have a skin reaction to the Allevyn bandage, it made the site around the wound red and irritated, so he did not use them. He continues with the non-adherent pad and wearing his compression socks daily. He has been keep the wound open to air at night, which he states makes it feel a little better. He states he is not getting much drainage from the wound. He has his US coming up on October 27. [facility] Medical History Severe obesity with body mass index (BMI) of 36.0 to 36.9 with serious comorbidity Prediabetes Establishing care with new doctor, encounter for Erectile dysfunction Hypertension Obstructive sleep apnea hypopnea, severe Loud snoring Hypersomnia Pilonidal cyst Surgical History History of colonoscopy H/O vasectomy Family History Father No problems noted. Mother No problems noted. Sister Kidney disease Heart disease Social History Household Members: Spouse Housing: House Alcohol intake: current Alcohol intake frequency: a few times a month Comment: 2-3 beer Patient Tobacco Use Status: Never used Tobacco service: No Current occupational status: employed Current occupation: [employer] Cognitive needs: No Hearing needs: No Vision needs: Yes (reading glasses) Review of Systems Const Reports as per HPI and Denies weakness ENT Reports Normal hearing present and Denies dizziness Card Reports as per HPI, Denies chest pain, Denies chest pain at rest, Denies chest pain with activity, Denies dyspnea and Denies dyspnea on exertion Resp Reports as per HPI, Denies cough, Denies dyspnea and Denies dyspnea on exertion GI Reports as per HPI, Denies abdominal pain, Denies nausea and Denies vomiting Musc Denies numbness Skin/Breast Reports as per HPI, Denies erythema and Denies wounds Neuro Reports Normal hearing present, Denies dizziness, Denies numbness, Denies Sensory deficit (Neuro) and Denies weakness Psych Reports no additional complaints Endo Reports no additional complaints Physical Exam Vital Signs: BMI result Body Mass Index 36.5 Const General: healthy appearing and no acute distress Orientation/consciousness: patient oriented x3 HEENT Head: Yes normal to inspection Ears: hearing grossly normal bilaterally Mouth: Normal oral and palatal mucosa present Resp Effort & Inspection: normal respiratory effort and able to speak in complete sentences Auscultation: clear to auscultation bilaterally Cardio Jugular venous distension: no JVD Rate: regular rate Rhythm: regular rhythm Heart sounds: S1 normal heart sound present and S2 normal heart sound present Bruits: no abdominal aortic bruits, no carotid bruits, no femoral bruits and no renal bruits Peripheral pulses: Peripheral pulses 2+ throughout GI Inspection: Yes normal to inspection Palpation (GI): No Abdominal aortic bruit present Skin General skin exam: no rashes or lesions noted Wounds: no wounds Hair: normal Neuro General: patient oriented x3 Cranial nerves: Yes Normal hearing present Cognition (Neuro): normal cognition Gait exam (Neuro): Normal gait present Motor exam (neuro): 5/5 motor strength present throughout Sensory Exam: No Sensory deficit (Neuro) Extrem Other: Right lower extremity wound: medial aspect appx 4cm below the pretibial area measuring 2.6x2.4cm, decreased in size from 2w ago, where it was 3.3x2.8. No bleeding or drainage noted. Wound bed is pink/red granulation tissue. Very small amount of slough noted in the middle of the wound, not easily removed. +1/2 peripheral edema noted. Slight amount of erythema surrounding the wound, not warm to the touch. Slight discoloration noted around the ankles. Palpable DP pulse General: Yes normal to inspection, Yes full ROM, Yes capillary refill normal and Yes normal gait Assessment & Plan Assessment & Plan (1) Venous stasis ulcer: Code(s): I83.009 - Varicose veins of unspecified lower extremity with ulcer of unspecified site; L97.909 - Non-pressure chronic ulcer of unspecified part of unspecified lower leg with unspecified severity Category: Surgical Qualifiers: Venous stasis ulcer site: calf Varicose vein presence: with varicose veins Laterality: right Non-pressure ulcer stage: limited to breakdown of skin Qualified Code(s): I83.012 - Varicose veins of right lower extremity with ulcer of calf; L97.211 - Non-pressure chronic ulcer of right calf limited to breakdown of skin Plan: Kolby is presenting today for a 2w follow up to venous stasis ulcer. He states he feels like it is getting better; I agree. The wound has shrunk down in size and there is healthy granulation tissue noted in the wound bed. There is no bleeding or drainage noted. The erythema has lessened around the wound. He is having his US done on 10/27. We will have him continue with the non-adherent pad with compression socks for daily dressing changes; his skin seems to react and worsen the periwound with tape/adhesive. The pt will follow up with us after the US and we will check his wound at that time. If there are any questions or concerns, please do not hesitate to reach out to us. Coding Level of Care Code Est Pt Level 3 (54098) Diagnoses Venous stasis ulcer of right calf limited to breakdown of skin with varicose veins I83.012; L97.211 Venous stasis ulcer site: calf Varicose vein presence: with varicose veins Laterality: right Non-pressure ulcer stage: limited to breakdown of skin
[2024-10-07 15:30] VITALS: BMI 36.5
--- OUTSIDE RECORDS SUMMARY | 2024-10-07 15:53 | XMS_ITS | Patient Health Record ---
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 Name Role Phone DAISY DASH Primary Care Provider Rock Boykin Unavailable [phone] Allergies Allergen (clinical drug ingredient) Drug/Non Drug Allergy documented on EMR Reaction Allergy Type Onset Date Status Penicillin Unknown Drug Allergy Active lisinopril Lisinopril Unknown Drug Allergy Activ e Reason For Referral No Information Medications Medication SIG (Take, Route, Frequency, Duration) Notes Start Date End Date Status Vitamin B Complex - as directed Orally once a day Active Osteo Bi-Flex Adv Double St - as directed Orally Active Once Daily - 1 tablet Orally Once a day mens 50 Active Oxaprozin 600 MG 1 tablet by mouth Orally 1 tablet qd For left knee pain--BID Active Losartan Potassium 50 MG 1 tablet Orally Once a day for 30 day(s) Active Omeprazole 20 MG 1 capsule Orally Onc e a day for 30 day(s) PRN-approx 3x/week Active Immunizations Vaccine Route Administration Date Status Comme nts Influenza Unknown 07/16/2018 Refused Social History Alcohol Screen Question Answer Notes Did you have a drink contain ing alcohol in the past year? Yes How often did you have a dri nk containing alcohol in the past year? 2 to 3 times a week (3 points) How many drinks did you have on a typical day when you were drinking in the past year? 3 or 4 drinks (1 point) How often did you have 6 or more drinks on one occasion in the past year? Less than monthly (1 point) Points 5 Interpretation Positive Section Notes: Nonsmoker; occasional alcoho l Nonsmoker; occasional alcoho l Problems Problem Type SNOMED Code ICD Code Onset Dates Problem Status W/U Status Risk Notes Problem 230877384 History of adenomatous polyp of colon (Z86.010) Active confirmed Problem 269203284 Gastroesophageal reflux disease, esophagitis presence not specified (K21.9) Active confirmed Problem 61141818 Heme + stool (R19.5) Active confirmed Plan Of Treatment Future Test Test Name Order Date COLONOSCOPY 02/09/2015 UPPER GI ENDOSCOPY 07/16/2018 COLONOSCOPY 07/16/2018 Next Appt Details Provider Name:Rock Lucia , 01/19/2025 04:20:00 PM, [address] [place] [address], [address], [place], [address], Insurance Providers Payer Name Payer Address Payer Phone Subscriber Number Group Number Insured Name Patient Relationship to Insured Coverage Start Date Coverage End Date [facility] [address] [place], [place] [id number] [phone] [id number] VICENTE SORIANO Self - patient is the insured Medical (General) History Medical History History ICD Code Denies RI,DM,CVA,Lung disease,renal dise ase Negative colonoscopy in 05/[address] Ayers Left knee pain/arthritis-meniscal tear Hypertension Screening colonoscopy in 2014--1 small tubular adenoma, diverticulosis and internal hemorrhoids Surgical History Surgery Date(Month/Year) pilonidal cyst removed by Dr Ayers
== END 2024-10-07 16:26 | disposition home or self-care (01) ==
LOC: HO.HVS 15:24
PROVIDERS: PCP Internal Medicine; Visit Provider Physician Assistant Surgical
DX: I83.012 Varicose veins of right lower extremity with ulcer of calf (principal); L97.211 Non-pressure chronic ulcer of right calf limited to breakdown of skin
CPT/HCPCS: 99213

== ENCOUNTER 2024-10-27 13:20 | Outpatient (REF) | payer BC, SELFPAY ==
--- NOTE | ~2024-10-27 | US_ITS ---
EXAMINATION: US LOWER EXTREMITY VENOUS (REFLUX EXAM), BILATERAL CLINICAL INFORMATION: Varicose veins of the right lower extremity with inflammation COMPARISON: None. TECHNIQUE: Color flow triplex imaging and compression Doppler was performed to evaluate both the deep and the superficial systems bilaterally. To evaluate the superficial system, the examination was performed in the upright position. Color-flow Doppler ultrasound and compression ultrasound were utilized. In addition, maneuvers were utilized to demonstrate reflux. FINDINGS: 1. DEEP VENOUS ULTRASOUND OF THE RIGHT LOWER EXTREMITY: Common Femoral Vein: Compressible, normal respiratory variation and augmented flow. Femoral Vein: Compressible, normal color flow and augmentation. Popliteal Vein: Compressible, normal augmentation. Deep Reflux: There is no evidence of reflux in the deep system in either the common femoral vein, superficial femoral or the popliteal vein. There is no evidence of a Carrion's cyst. 2. SUPERFICIAL ULTRASOUND WITH DOPPLER OF RIGHT LOWER EXTREMITY: GREAT SAPHENOUS VEIN: Saphenofemoral Junction: 0.9 cm; Reflux: 0 ms Proximal Thigh: 0.7 cm; Reflux: 0 ms Mid Thigh: 0.9 cm; Reflux: 2460 ms Distal Thigh: 0.8 cm; Reflux: 2900 ms At Knee: 0.7 cm; Reflux: 2588 ms Proximal Calf: 0.7 cm; Reflux: 2128 ms Mid Calf: 0.4 cm; Reflux: 888 ms Distal Calf: 0.4 cm; Reflux: 0 ms Lateral accessory GREAT SAPHENOUS VEIN: Saphenofemoral Junction: 0.6 cm; Reflux: 0 ms Mid Thigh: 0.7 cm; Reflux: 1276 ms DUPLICATED MEDIAL GREAT SAPHENOUS VEIN: Diameter: None imaged Reflux: NA DUPLICATED LATERAL GREAT SAPHENOUS VEIN: Diameter: None imaged Reflux: NA SMALL SAPHENOUS VEIN: Drainage into a thigh vein Saphenopopliteal Junction: 0.4 cm; Reflux: 0 ms Proximal: 0.4 cm; Reflux: 0 ms Distal: 0.4 cm; Reflux: 0 ms VEIN OF GIACOMINI: Size: NA Reflux: NA PERFORATORS: Location: Greater saphenous vein, proximal calf 28 cm from heel Size: 0.4 cm Reflux: 2960 ms Location: into varicosity in the mid calf Size: 0.3 cm Reflux: 0 ms VARICOSITIES: Location: Small saphenous vein, proximal calf Size: 0.4 cm Reflux: 876 ms Location: Accessory saphenous vein, midthigh Size: 0.6 cm Reflux: 2212 ms Location: Greater saphenous vein, proximal thigh Size: 0.5 cm Reflux: 1740 ms Location: Greater saphenous vein, midthigh Size: 0.9 cm Reflux: 2872 ms Location: Greater saphenous vein, proximal calf Size: 1.0 cm Reflux: 2084 ms Location: Greater saphenous vein, and the catheter Size: 0.4 cm Reflux: 0 ms 3. DEEP VENOUS ULTRASOUND OF THE LEFT LOWER EXTREMITY: Common Femoral Vein: Compressible, normal respiratory variation and augmented flow. Femoral Vein: Compressible, normal color flow and augmentation. Popliteal Vein: Compressible, normal augmentation. Deep Reflux: There is no evidence of reflux in the deep system in either the common femoral vein, superficial femoral or the popliteal vein. 4. SUPERFICIAL ULTRASOUND WITH DOPPLER OF LEFT LOWER EXTREMITY: GREAT SAPHENOUS VEIN: Saphenofemoral Junction: 0.9 cm; Reflux: 0 ms Proximal Thigh: 0.6 cm; Reflux: 0 ms Mid Thigh: 0.5 cm; Reflux: 0 ms Distal Thigh: 0.5 cm; Reflux: >2876 ms At Knee: 0.5 cm; Reflux: 0 ms Proximal Calf: 0.4 cm; Reflux: 1188 ms Mid Calf: 0.3 cm; Reflux: 0 ms Distal Calf: 0.2 cm; Reflux: 0 ms Lateral accessory GREAT SAPHENOUS VEIN: None imaged Medial accessory GREAT SAPHENOUS VEIN: Saphenofemoral Junction: 0.5 cm; Reflux: 0 ms Mid Thigh: 0.4 cm; Reflux: 0 ms DUPLICATED MEDIAL GREAT SAPHENOUS VEIN: Diameter: None imaged Reflux: NA DUPLICATED LATERAL GREAT SAPHENOUS VEIN: Diameter: None imaged. Reflux: NA SMALL SAPHENOUS VEIN: Saphenopopliteal Junction: 0.6 cm; Reflux: 0 ms Proximal: 0.3 cm; Reflux: 0 ms Distal: 0.4 cm; Reflux: 0 ms VEIN OF GIACOMINI: Size: NA Reflux: NA PERFORATORS: Location: Greater saphenous vein, distal calf Size: 0.4 cm Reflux: 0 ms VARICOSITIES: Location: Small saphenous vein, proximal calf Size: 0.3 cm Reflux: 0 ms Location: Greater saphenous vein, midthigh Size: 0.5 cm Reflux: 0 ms Location: Greater saphenous vein, mid thigh Size: 0.6 cm Reflux: 2296 ms Location: Greater saphenous vein, distal thigh Size: 0.5 cm Reflux: >3252 ms Location: Greater saphenous vein, knee through mid calf Size: 0.3 cm Reflux: 0 ms US/US venous duplex LE BI IMPRESSION: Right: Venous incompetence with varicosities as detailed above. Left: Venous incompetence with varicosities as detailed above. Electronically signed by: Oren Gomez MD 10/28/2024 11:03 AM EDT
--- OUTSIDE RECORDS SUMMARY | 2024-10-27 13:35 | XMS_ITS | Patient Health Record ---
Author Organization [facility] Address [address] [place] [address] Care Team Providers Care Emergency Medcl Emt Name Role Phone Jimmy Baxter MD Primary Care Provider UnavailTrell Pineda Unavailable [phone] Allergies Allergen (clinical drug ingredient) Drug/Non Drug Allergy documented on EMR Reaction Allergy Type Onset Date Status Penicillin hives Drug Allergy Active Reason For Referral No Information Medications Medication SIG (Take, Route, Fr equency, Duration) Notes Start Date End Date Status Oxaprozin Active Econazole Nitrate 1 % 1 application to a ffected area Externally Once a day for 30 days 01/11/2015 Active Glucosamine Active Problems Problem Type SNOMED Code ICD Code Onset Dates Problem Status W/U Status Risk Notes Problem Bursitis (11232320) Bursitis (727.3) Active confirmed Problem Myositis (74310746) Myositis (729.1) Active confirmed Problem Pain in limb (75200518) Pain in Limb (729.5) Active confirmed Problem Plantar fasciitis (694504387) Plantar Fasciitis (728.71) Active confirmed Problem Tinea pedis (2644522) Tinea Pedis (110.4) Active confirmed Plan Of Treatment No Information Insurance Providers Payer Name Payer Address Payer Phone Subscriber Number Group Number Insured Name Patient Relationship to Insured Coverage Start Date Coverage End Date [employer] [address] [place] [address] [id number] Kolby Gross Self - patient is the insured Medical (General) History Medical History History ICD Code Back,Hip,and Knee pain Chicken pox Measles
== END 2024-10-27 13:21 | disposition home or self-care (01) ==
LOC: HO.US 13:20
PROVIDERS: PCP Internal Medicine; Visit Provider Physician Assistant Surgical
DX: I83.11 Varicose veins of right lower extremity with inflammation (principal); I83.12 Varicose veins of left lower extremity with inflammation
CPT/HCPCS: 93970

== ENCOUNTER → 2024-10-27 13:22 | Outpatient (BNV) | payer BC, SELFPAY | PROVIDERS: PCP Internal Medicine; Visit Provider Radiology Diagnostic Radiology | DX: I83.893 Varicose veins of bilateral lower extremities with other complications (principal) | CPT/HCPCS: 93970 ==

== ENCOUNTER → 2024-11-02 15:25 | Outpatient (BNVA) | payer BC, SELFPAY | PROVIDERS: PCP Internal Medicine; Visit Provider Surgery Vascular Surgery ==

== ENCOUNTER 2024-11-06 09:22 | Outpatient (REF) | payer BC, SELFPAY ==
--- OUTSIDE RECORDS SUMMARY | 2024-11-06 09:25 | XMS_ITS | Patient Health Record ---
Author Organization 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 Role Phone Jimmy Baxter MD Primary Care Provider UnavailTrell Pineda Unavailable [phone] Allergies Allergen (clinical drug ingredient) Drug/Non Drug [...] Status W/U Status Risk Notes Problem Bursitis (00940449) Bursitis (727.3) Active confirmed Problem Myositis (93187458) Myositis (729.1) Active confirmed Problem Pain in limb (48845179) Pain in Limb (729.5) Active confirmed Problem Plantar fasciitis (881543448) Plantar Fasciitis (728.71) Active confirmed Problem Tinea pedis (7702308) Tinea Pedis (110.4) Active confirmed Plan Of Treatment No Information Insurance Providers Payer Name Payer Address Payer Phone Subscriber Number Group Number Insured Name Patient Relationship to Insured Coverage Start Date Coverage End Date [employer] [address] [place] [address] [id number] Kolby Gross Self - patient is the insured Medical (General) History Medical History History ICD Code Back,Hip,and Knee pain Chicken pox Measles
[2024-11-06 11:43] LABS: Cholesterol 217 mg/dL (<200); HDL Cholesterol 60 mg/dL (>40); LDL Cholesterol Calculated 135 mg/dL (<100); Triglycerides 114 mg/dL (<150)
== END 2024-11-06 09:23 | disposition home or self-care (01) ==
LOC: HO.HMGCLDS 09:22
PROVIDERS: PCP Internal Medicine; Visit Provider Physician Assistant Medical
DX: Z00.00 Encounter for general adult medical examination without abnormal findings (principal)
CPT/HCPCS: 36415; 80061

== ENCOUNTER 2024-11-12 12:18 | Outpatient (AMB) | payer BC, SELFPAY ==
--- OUTSIDE RECORDS SUMMARY | 2024-11-12 12:20 | XMS_ITS | Patient Health Record ---
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 Name Role Phone Jimmy Baxter MD Primary Care Provider UnavailTrell Pineda Unavailable [phone] Allergies Allergen (clinical drug ingredient) Drug/Non Drug [...] Status W/U Status Risk Notes Problem Bursitis (85380594) Bursitis (727.3) Active confirmed Problem Myositis (43682688) Myositis (729.1) Active confirmed Problem Pain in Limb (729.5) Active confirmed Problem Plantar fasciitis (324009601) Plantar Fasciitis (728.71) Active confirmed Problem Tinea pedis (3092831) Tinea Pedis (110.4) Active confirmed Plan Of Treatment No Information Insurance Providers Payer Name Payer Address Payer Phone Subscriber Number Group Number Insured Name Patient Relationship to Insured Coverage Start Date Coverage End Date [employer] [address] [place] [address] [phone] [id number] Kolby Gross Self - patient is the insured Medical (General) History Medical History History ICD Code Back,Hip,and Knee pain Chicken pox Measles
--- NOTE | 2024-11-12 12:27 | MHC.OFFVIS ---
Intake Visit Reasons: Right GSV RFA Accompanied by: Self / Same As Patient Allergies azithromycin (From Zithromax Z-Burton) Allergy (Intermediate, Verified 11/12/24 12:27) Diarrhea Penicillins (PENICILLINS) Allergy (Intermediate, Verified 11/12/24 12:27) HIVES lisinopril (LISINOPRIL) Adverse Reaction (Intermediate, Verified 11/12/24 12:27) COUGH PFSH Medical History Hyperlipidemia Pure hypercholesterolemia, unspecified Severe obesity with body mass index (BMI) of 36.0 to 36.9 with serious comorbidity Prediabetes Establishing care with new doctor, encounter for Erectile dysfunction Hypertension Obstructive sleep apnea hypopnea, severe Loud snoring Hypersomnia Pilonidal cyst Surgical History History of colonoscopy H/O vasectomy Family History Father No problems noted. Mother No problems noted. Sister Kidney disease Heart disease Social History Household Members: Spouse Housing: House Alcohol intake: current Alcohol intake frequency: a few times a month Comment: 2-3 beer Patient Tobacco Use Status: Never used Tobacco service: No Current occupational status: employed Current occupation: [employer] Cognitive needs: No Hearing needs: No Vision needs: Yes (reading glasses) Office Procedures Vascular Office Procedure Details Details: Diagnosis: Varicose veins with inflammation of right leg Procedure: Endovenous radiofrequency ablation of the right great saphenous vein(s) of the lower extremity. Anesthesia: Local infiltration 5 cc, Tumescent 400 cc. Estimated Blood Loss: minimal Specimen: Varicose veins The patient was transferred to the procedure suite and the insufficient saphenous vein was mapped by ultrasound and diagrammed on the overlying skin. The depth and diameter of the vein(s) to be treated was documented. The varicose tributary veins and suitable access sites were identified and mapped as well. The patient was then positioned supine on the procedure table. The affected limb was prepped and draped in the usual sterile fashion. The RF catheter was placed on the sterile field, flushed and wiped down, prepared, and connected by a sterile cable. The patient was placed in supine position and local anesthesia was instilled in the skin overlying the access site. A skin incision was made overlying the identified and mapped great saphenous vein entry site. The vein was accessed using ultrasound guidance and the Seldinger technique, a guide wire was introduced through the needle, which was then exchanged over the guide wire for a 6F sheath, which was secured in place. The guide wire was removed and the sheath was flushed. The RF catheter was placed into the vein through the sheath and preferentially, imaging was used to place the catheter tip just inferior to the superficial epigastric vein to preserve normal physiological flow in that vein. Additionally, it was confirmed by ultrasound guidance that the catheter tip was also placed a minimum of 1.5cm distal to the saphenofemoral junction. After the RF catheter position was verified by ultrasound, tumescent anesthesia was infiltrated, under ultrasound guidance, precisely into the perivenous compartment along the entire length of vein from the entry site to the saphenofemoral junction until a halo of fluid was noted around the vein. The patient was then placed in supine position to further exsanguinate the superficial venous system. After RF catheter position was again confirmed with ultrasound imaging, and under direct external compression along the length of the heating element, RF energy was applied. The vein was segmentally ablated by heating a 8 cm segment and then indexing the catheter forward by 7.5 cm until the treatment length is completed. Device temperature was maintained at 120 plus or minus 5 degrees C with an initial power level of 40W dropping to below 20W for each treatment. Total vein length treated 40 cm Total cycles of RF 6. Repeat ultrasound of the saphenous vein was performed, confirming successful treatment. The catheter and sheath were withdrawn and hemostasis established with direct pressure. After assuring hemostasis, the skin incision over the saphenous vein was closed with a bandage and a compression wrap, and/ or graduated compression stocking was applied from the level of the foot to the most proximal level of the thigh. 76246 - Endovenous RF, 1st Vein All charges added?: Procedure code (CPT) selection complete Assessment & Plan Assessment & Plan (1) Varicose veins of right lower extremity with inflammation: Comment: 11/12/2024 - right great saphenous vein radiofrequency ablation Code(s): I83.11 - Varicose veins of right lower extremity with inflammation Category: Medical Plan: See op note Coding Level of Care Code Procedure Only Diagnoses Varicose veins of right lower extremity with inflammation I83.11 CPT Codes Details - Vascular 1: 20235 - Endovenous RF, 1st Vein ([id number])
== END 2024-11-12 13:04 | disposition home or self-care (01) ==
LOC: HO.HVS 12:18
PROVIDERS: PCP Internal Medicine; Visit Provider Surgery Vascular Surgery
DX: I83.11 Varicose veins of right lower extremity with inflammation (principal)
CPT/HCPCS: 36475

== ENCOUNTER → 2024-11-12 12:18 | Outpatient (BNVA) | payer BC, SELFPAY | PROVIDERS: PCP Internal Medicine; Visit Provider Surgery Vascular Surgery | DX: I83.11 Varicose veins of right lower extremity with inflammation (principal); E78.00 Pure hypercholesterolemia, unspecified; E66.01 Morbid (severe) obesity due to excess calories; Z68.36 Body mass index [BMI] 36.0-36.9, adult; R73.03 Prediabetes; I10 Essential (primary) hypertension; G47.33 Obstructive sleep apnea (adult) (pediatric) | CPT/HCPCS: 36475; J2003; J2004 ==

== ENCOUNTER 2024-11-23 15:30 | Outpatient (AMB) | payer BC, SELFPAY ==
--- NOTE | 2024-11-23 15:31 | A.OFFVIS_ITS ---
Intake Visit Reasons: follow up/ PVR Intake Note: Patient presents today for follow up on: incomplete bladder emptying, nocturia, frequency, urgency Urology Medications: Sildenafil Blood Thinner: none PVR: 5ml's Pourer Bull Ladle Required: No Accompanied by: Self / Same As Patient Allergies azithromycin (From Zithromax Z-Burton) Allergy (Intermediate, Verified 11/23/24 21:33) Diarrhea Penicillins (PENICILLINS) Allergy (Intermediate, Verified 11/23/24 21:33) HIVES lisinopril (LISINOPRIL) Adverse Reaction (Intermediate, Verified 11/23/24 21:33) COUGH Medication List - Last Reconciled 11/23/24 by CALLIE Garzon- clotrimazole-betamethasone 1-0.05 % appl topical DAILY ibuprofen 800 mg PO TID losartan 50 mg PO DAILY sildenafil mg PO HPI Comments Details: Kolby is a very pleasant 64-year-old male patient of Dr. Mills. He has a past medical history of obesity and hypertension. He presents to the office today for follow-up of his nocturia. In discussion with the patient today he reports significant improvement in episodes of nocturia since he has been diagnosed with sleep apnea in his now compliant with CPAP. He discusses he has also followed up with vascular surgery for varicose veins. He currently denies any bothersome urinary issues. Previous workup has included a retroperitoneal ultrasound and PSA. Ultrasound 02/16 noted bilateral kidneys with no calculi, lesions, and or hydronephrosis. The bladder is well distended and normal. Bladder jets are demonstrated. Pre void bladder volume is approximately 220 mL. Postvoid bladder volume is approximately 30 mL. The prostate was not seen with certainty. What was thought to possibly represent the prostate was of normal volume at 16 mL. PSA 02/16 0.8. He denies hematuria, dysuria, foul-smelling urine, changes to urinary stream, flank pain, fever, and or chills. In office urinalysis results reviewed with the patient today. PVR 5 mL. He does report erectile dysfunction. He has been utilizing Viagra 50 mg PRN and has found this somewhat helpful. He otherwise offers no other issues or concerns at this time. [facility] Medical History Hyperlipidemia Pure hypercholesterolemia, unspecified Severe obesity with body mass index (BMI) of 36.0 to 36.9 with serious comorbidity Prediabetes Establishing care with new doctor, encounter for Erectile dysfunction Hypertension Obstructive sleep apnea hypopnea, severe Loud snoring Hypersomnia Pilonidal cyst Surgical History History of colonoscopy H/O vasectomy Family History Father No problems noted. Mother No problems noted. Sister Kidney disease Heart disease Social History Household Members: Spouse Housing: House Alcohol intake: current Alcohol intake frequency: a few times a month Comment: 2-3 beer Patient Tobacco Use Status: Never used Tobacco service: No Current occupational status: employed Current occupation: [employer] Cognitive needs: No Hearing needs: No Vision needs: Yes (reading glasses) Review of Systems Const All systems reviewed & are unremarkable except as noted in HPI and below Physical Exam Const General: cooperative, comfortable, no acute distress, well developed, alert and awake Nutritional Appearance: obese Orientation/consciousness: patient oriented x3 Limitations: no limitations HEENT Head: Yes normal to inspection, Yes normocephalic and Yes atraumatic Ears: hearing grossly normal bilaterally Eyes General: appearance normal, both eyes and all related structures Neck Neck: Yes normal visual inspection and Yes trachea midline Chest Chest palpation & inspection: normal inspection of the chest Resp Effort & Inspection: normal respiratory effort and able to speak in complete sentences Cardio Rate: regular rate GI Inspection: Yes normal to inspection General: Yes no CVA tenderness Back/Spine/Pelvis Back: no CVA tenderness Skin General skin exam: no rashes or lesions noted Neuro General: patient oriented x3 Extrem General: Yes normal to inspection Psych Appearance: grossly normal and well kempt Mental Status: mental status grossly normal Speech and movement: Normal speech and movement present and Clear speech present Affect: normal affect Attitude: cooperative Thought process: Normal thought process present Thought content: Normal thought content present Insight: Fair insight present (Psych) Judgement: Fair judgement present (Psych) Office Procedures Post Void Residual Post Residual Void Post Void Residual (PVR): 5 01013-[id number] Void Residual by ultrasound Results AMB Urinalysis, Automated UA Leukoctes 15 Lizzy/uL Last Edit by [facility] on 11/23/24 15:50 UA Nitrite [facility] 11/23/24 15:50 UA Urobilinogen 0.2 mg/dL [facility] on 11/23/24 15:5 0 UA Protein 30 mg/dL Last Edit by [facility] on 11/23/24 15:50 UA pH 6.0 [facility] Edit [facility] on 11/23/24 15:50 UA Blood 0 Braulio/uL Last Edit by [facility] on 11/23/24 15:50 UA Specific Scott 1.030 Last Edit [facility] on 11/23/24 15: 50 UA Ketone [facility] on 11/23/24 15:50 UA Bilirubin 1 mg/dL Last Edit by [facility] on 11/23/24 15:50 UA Glucose 0 mg/dL Last Edit by [facility] on 11/23/24 15:50 Results Reviewed Results Reviewed: Laboratory Last Values Urine pH (Auto) 6.0 11/23/24 15:41 Specific Scott (Auto) 1.030 11/23/24 15:41 Urine Protein (Auto) 30 mg/dL 11/23/24 15:41 Glucose (UA)(Auto) 0 mg/dL 11/23/24 15:41 Urine Blood (Auto) 0 Braulio/uL 11/23/24 15:41 Urine Bilirubin (Auto) 1 mg/dL 11/23/24 15:41 Urine Urobilinogen (Auto) 0.2 mg/dL 11/23/24 15:41 Leukocyte Esterase (Auto) 15 Lizzy/uL 11/23/24 15:41 Assessment & Plan Assessment & Plan (1) Nocturia: Code(s): R35.1 - Nocturia Category: Medical (2) Erectile dysfunction: Code(s): N52.9 - Male erectile dysfunction, unspecified Category: Medical Plan In office urinalysis results with the patient today; as noted above. PVR 5 mL. Patient currently denies any bothersome urinary issues or concerns. He reports be happy with current voiding parameters. Will continue with surveillance monitoring. We did discussed at length potential causes of nocturia patient had been experiencing. We also discussed potential causes of ED as well as further treatment options and risks and benefits of these treatment options. We discussed lifestyle modifications to assist with ED. Will obtain PSA in 4-6 months. Follow-up in 4-6 months with PSA and PVR; or sooner with any issues, concerns, and or questions. Orders: Orders Prostate Specific Antigen 4 Months N40.0 - Benign prostatic hyperplasia without lower urinary tract symptoms AMB Urinalysis Automated Today Z13.9 - Encounter for screening, unspecified AMB Post Void Residual by ultrasound Today R39.15 - Urgency of urination Patient Instructions: The patient had an opportunity to ask questions regarding the treatment plan. All questions were answered. Physical exam, labs, and imaging were discussed and reviewed in detail. As well as risks, benefits, and discussion of treatment choices. No major barriers to understanding were identified. The patient expressed understanding and agreement with the above treatment plan. The patient was made aware they should contact our office by phone for worsening of their current condition, the appearance of new symptoms, or with any questions or concerns. Compliance is encouraged with any medications and follow up testing that is ordered. It is a privilege to be allowed the opportunity to participate in? your urological care.? Again, if you have any questions or concerns If you have any questions or concerns please do not hesitate to contact me. The office is [phone]. This note is constructed using voice recognition software. While every effort has been made to ensure accuracy circular ripsaw operator errors may have been included. Yours sincerely, JENNIFER Garzon Coding Level of Care Code Est Pt Level 3 (52316) Complex EM visit Add On G2211 Diagnoses Nocturia R35.1 Erectile dysfunction N52.9 CPT Codes Post Residual Void - PVR CPT Code: 89425-Rhkz Void Residual by ultrasound ([id number])
--- OUTSIDE RECORDS SUMMARY | 2024-11-23 16:13 | XMS_ITS | Patient Health Record ---
Author Organization [facility] Address [address] [place] [address] Care Team Providers Care Outsole Scheduler Name Role Phone DAISY DASH Primary Care Provider Rock Boykin Unavailable [phone] Allergies Allergen (clinical drug ingredient) Drug/Non Drug Allergy documented on EMR Reaction Allergy Type Onset Date Status Penicillin Unknown Drug Allergy Active Lisinopril Unknown Drug Allergy Active Reason For Referral No [...] Problem Status W/U Status Risk Notes Problem 687075884 History of adenomatous polyp of colon (Z86.010) Active confirmed Problem 478179156 Gastroesophageal reflux disease, esophagitis presence not specified (K21.9) Active confirmed Problem 34043130 Heme + stool (R19.5) Active confirmed Plan Of Treatment Future Test Test Name Order Date COLONOSCOPY 02/09/2015 UPPER GI ENDOSCOPY 07/16/2018 COLONOSCOPY 07/16/2018 Next Appt Details Provider Name:Rock Lucia , 01/19/2025 04:20:00 PM, [address] [place] [address], [address], [place], [address], Insurance Providers Payer Name Payer Address Payer Phone Subscriber Number Group Number Insured Name Patient Relationship to Insured Coverage Start Date Coverage End Date [facility] [address] [place], [place] [id number] [phone] [id number] VICENTE SORIANO Self - patient is the insured Medical (General) History Medical History History ICD Code Denies [place],DM,CVA,Lung disease,renal dise ase Negative colonoscopy in 05/[address] Ayers Left knee pain/arthritis-meniscal tear Hypertension Screening colonoscopy in 2014--1 small tubular adenoma, diverticulosis and internal hemorrhoids Surgical History Surgery Date(Month/Year) pilonidal cyst removed by Dr Ayers
--- OUTSIDE RECORDS SUMMARY | 2024-11-23 16:13 | XMS_ITS | Patient Health Record ---
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 Name Role Phone Jimmy Baxter MD Primary Care Provider Trell Gutierrez Unavailable [phone] Allergies Allergen (clinical drug ingredient) Drug/Non Drug Allergy documented on EMR Reaction Allergy Type Onset Date Status Penicillin hives Drug Allergy Active Reason For Referral No Information Medications Medication SIG (Take, Route, Fr equency, Duration) Notes Start Date End Date Status Oxaprozin Active Econazole Nitrate 1 % 1 application to a ffected area Externally Once a day; Duration: 30 days 01/11/2015 Active Glucosamine Active Problems Problem Type SNOMED Code ICD Code Onset Dates Problem Status W/U Status Risk Notes Problem Bursitis (23657592) Bursitis (727.3) Active confirmed Problem Myositis (75907935) Myositis (729.1) Active confirmed Problem Pain in limb (94652068) Pain in Limb (729.5) Active confirmed Problem Plantar fasciitis (195570701) Plantar Fasciitis (728.71) Active confirmed Problem Tinea pedis (2231873) Tinea Pedis (110.4) Active confirmed Plan Of Treatment No Information Insurance Providers Payer Name Payer Address Payer Phone Subscriber Number Group Number Insured Name Patient Relationship to Insured Coverage Start Date Coverage End Date [facility] Others [address] [place] [address] [id number] Kolby Gross Self - patient is the insured Medical (General) History Medical History History ICD Code Back,Hip,and Knee pain Chicken pox Measles
== END 2024-11-23 16:13 | disposition home or self-care (01) ==
LOC: HO.HUSH 15:31
PROVIDERS: PCP Internal Medicine; Visit Provider Nurse Practitioner Family
DX: R35.1 Nocturia (principal); N52.9 Male erectile dysfunction, unspecified; Z13.9 Encounter for screening, unspecified
CPT/HCPCS: 99213

== ENCOUNTER → 2024-11-23 15:30 | Outpatient (BNVA) | payer BC, SELFPAY | PROVIDERS: PCP Internal Medicine; Visit Provider Nurse Practitioner Family | DX: R35.1 Nocturia (principal) | CPT/HCPCS: 51798; 81003 ==

== ENCOUNTER 2024-11-25 09:03 | Outpatient (AMB) | payer BC, SELFPAY ==
[2024-11-25 09:05] VITALS: BMI 36.5
--- NOTE | 2024-11-25 09:05 | A.OFFVIS_ITS ---
Vital Signs 11/25/24 09:05 Height 6 ft 1 in Weight 277 lb BMI 36.5 Intake Visit Reasons: 2 wk follow up Right GSV RFA 11/12/24 Intake Note: Pt presents to the office today for a 2 week follow up right GSV RFA 11/12/24. Pt states he experiences some tightness in his leg but otherwise states he feels well. Allergies azithromycin (From Zithromax Z-Burton) Allergy (Intermediate, Verified 11/25/24 09:05) Diarrhea Penicillins (PENICILLINS) Allergy (Intermediate, Verified 11/25/24 09:05) HIVES lisinopril (LISINOPRIL) Adverse Reaction (Intermediate, Verified 11/25/24 09:05) COUGH HPI HPI 2 wk follow up Right GSV RFA 11/12/24: Details: The patient is a 64-year-old male presenting for a follow-up after right great saphenous vein radiofrequency ablation. The procedure was performed on November 12, 2024, and the patient reports improvement in symptoms, including reduced swelling and soreness in the treated area. Initially, the patient experienced stiffness and soreness, which have gradually improved over time. The patient has been informed about the presence of a phlebitic vein, which is expected to soften over time with conservative management, including warm compresses and nonsteroidal anti-inflammatory drugs (NSAIDs) like Advil or Mot rin. The patient is advised to monitor the condition for two to three months to assess improvement. Additionally, the patient may have an element of lymphedema, characterized by impaired circulation of white blood cells. The patient has been advised on the potential use of specialty compression pumps if symptoms persist. [facility] Medical History Hyperlipidemia Pure hypercholesterolemia, unspecified Severe obesity with body mass index (BMI) of 36.0 to 36.9 with serious emily rbidity Prediabetes Establishing care with new doctor, encounter for Erectile dysfunction Hypertension Obstructive sleep apnea hypopnea, severe Loud snoring Hypersomnia Pilonidal cyst Surgical History History of colonoscopy H/O vasectomy Family History Father No problems noted. Mother No problems noted. Sister Kidney disease Heart disease Social History Household Members: Spouse Housing: House Alcohol intake: current Alcohol intake frequency: a few times a month Comment: 2-3 beer Patient Tobacco Use Status: Never used Tobacco service: No Current occupational status: employed Current occupation: [employer] Cognitive needs: No Hearing needs: No Vision needs: Yes (reading glasses) Review of Systems Const Reports as per HPI ENT Reports no additional complaints Card Denies chest pain, Denies chest pain at rest and Denies chest pain with activity Resp Denies chest congestion and Denies cough GI Reports no additional complaints Musc Details: pain over varicosities, aching of lower extremities, swelling, cramping, heaviness and tiredness, itching Denies abnormal gait Skin/Breast Reports pruritus and Denies wounds Neuro Reports no additional complaints and Denies abnormal gait Psych Denies no additional complaints Physical Exam Vital Signs: BMI result Body Mass Index 36.5 Const General: cooperative, healthy appearing and comfortable Orientation/consciousness: oriented to person, oriented to place and oriented to time Neck Carotids: no bruits Chest Chest palpation & inspection: normal inspection of the chest and normal palpation of entire chest wall Resp Effort & Inspection: normal respiratory effort and able to speak in complete sentences Cardio Rate: regular rate Heart sounds: S1 normal heart sound present and S2 normal heart sound present Peripheral pulses: Peripheral pulses 2+ throughout GI Inspection: Yes normal to inspection Skin Other: +2 edema, large rope-like varicosities greater than 4 mm CEAP Classification C4 - skin color changes Ep - Etiology Primary As - superficial veins P - reflux General skin exam: dry skin Neuro General: oriented to person, oriented to place and oriented to time Extrem Right lower extremity: full ROM, normal capillary refill and edema Left lower extremity: full ROM, normal capillary refill and edema Psych Mental Status: mental status grossly normal Assessment & Plan Assessment & Plan (1) Varicose veins of right lower extremity with inflammation: Comment: 11/12/2024 - right great saphenous vein radiofrequency ablation Code(s): I83.11 - Varicose veins of right lower extremity with inflammation Category: Medical Plan: Patient has done well status post right great saphenous vein ablation. He does report some improvement in his swelling. He does have quite swollen lower extremities. We did discuss the importance of compression elevation and exercise. In addition weight loss may be beneficial for him as well. We will observe him for the next 3 months and work him up for lymphedema (2) Lymphedema: Code(s): I89.0 - Lymphedema, not elsewhere classified Category: Medical Plan: He will try conservative measures if no significant improvement will plan for lymphedema evaluation in approximately 3 months time. Thank you for allowing us to assist in his care Coding Level of Care Code Est Pt Level 4 (62245) Diagnoses Varicose veins of right lower extremity with inflammation I83.11 Lymphedema I89.0
--- OUTSIDE RECORDS SUMMARY | 2024-11-25 09:19 | XMS_ITS | Patient Health Record ---
[facility] Address [address] [place] [address] Care Team Providers Care Mammography Technician Name Role Phone Jimmy Baxter MD Primary Care Provider Trell Gutierrez Unavailable [phone] Allergies Allergen (clinical drug ingredient) Drug/Non Drug [...] Status W/U Status Risk Notes Problem Bursitis (55633267) Bursitis (727.3) Active confirmed Problem Myositis (34984067) Myositis (729.1) Active confirmed Problem Pain in limb (62167482) Pain in Limb (729.5) Active confirmed Problem Plantar fasciitis (446616245) Plantar Fasciitis (728.71) Active confirmed Problem Tinea pedis (0303510) Tinea Pedis (110.4) Active confirmed Plan Of Treatment No Information Insurance Providers Payer Name Payer Address Payer Phone Subscriber Number Group Number Insured Name Patient Relationship to Insured Coverage Start Date Coverage End Date [facility] All Others [address] [place] [address] [phone] [id number] Kolby Gross Self - patient is the insured Medical (General) History Medical History History ICD Code Back,Hip,and Knee pain Chicken pox Measles
--- OUTSIDE RECORDS SUMMARY | 2024-11-25 09:19 | XMS_ITS | Patient Health Record ---
Author Organization [facility] Address [address] [place] [address] Care Team Providers Care Hardware Trainer Name Role Phone DAISY DASH Primary Care Provider Rock Boykin Unavailable [phone] Allergies Allergen (clinical drug ingredient) Drug/Non Drug [...] Problem Status W/U Status Risk Notes Problem 501072250 History of adenomatous polyp of colon (Z86.010) Active confirmed Problem 571750704 Gastroesophageal reflux disease, esophagitis presence not specified (K21.9) Active confirmed Problem 79426563 Heme + stool (R19.5) Active confirmed Plan Of Treatment Future Test Test Name Order Date COLONOSCOPY 02/09/2015 UPPER GI ENDOSCOPY 07/16/2018 COLONOSCOPY 07/16/2018 Next Appt Details Provider Name:Rock Lucia , 01/19/2025 04:20:00 PM, [address] [place] [address], [address], [place], [address], Insurance Providers Payer Name Payer Address Payer Phone Subscriber Number Group Number Insured Name Patient Relationship to Insured Coverage Start Date Coverage End Date [facility] [address] [place], [place] [id number] [phone] [id number] VICENTE SORIANO Self - patient is the insured Medical (General) History Medical History History ICD Code Denies [place],DM,CVA,Lung disease,renal dise ase Negative colonoscopy in 05/[address] Ayers Left knee pain/arthritis-meniscal tear Hypertension Screening colonoscopy in 2014--1 small tubular adenoma, diverticulosis and internal hemorrhoids Surgical History Surgery Date(Month/Year) pilonidal cyst removed by Dr Ayers
== END 2024-11-25 09:34 | disposition home or self-care (01) ==
LOC: HO.HVS 09:04
PROVIDERS: PCP Internal Medicine; Visit Provider Surgery Vascular Surgery
DX: I83.11 Varicose veins of right lower extremity with inflammation (principal); I89.0 Lymphedema, not elsewhere classified
CPT/HCPCS: 99214

== ENCOUNTER 2024-12-22 12:50 | Outpatient (AMB) | payer BC, SELFPAY ==
[2024-12-22 12:52] VITALS: BP 142/88; PULSE 94; O2SAT 97; BMI 49.0
--- NOTE | 2024-12-22 12:52 | A.OFFVIS_ITS ---
Vital Signs 12/22/24 12:52 Height 6 ft 1 in Weight 371 lb 6 oz BMI 49.0 BP 142/88 H Blood Pressure Location Lt brachial Pulse 94 Pulse Source Pulse Oximeter Pulse Oximetry (%) 97 Oxygen Delivery Method Room Air Intake Visit Reasons: 3mon follow-up Intake Note: Patient presents follow up MELINDA. Labs in chart. PSG titration not done(denied by insurance)COmpliance in chart(89/90days, >=4hrs 94%, Average usage-6r 5min, Med pressure 11.1, Med leaks-3.4, AHI-3.1) Accompanied by: Self / Same As Patient Allergies azithromycin (From Zithromax Z-Burton) Allergy (Intermediate, Verified 12/22/24 12:58) Diarrhea Penicillins (PENICILLINS) Allergy (Intermediate, Verified 12/22/24 12:58) HIVES lisinopril (LISINOPRIL) Adverse Reaction (Intermediate, Verified 12/22/24 12:58) COUGH HPI Comments Details: 64y/o male with HTN, presents for a f/u of severe obstructive sleep apnea. May 2024 HST AHI c/w AHI was 28 and oxygen megan was 81%, he has severe MELINDA. October 2024, phlebectomy, due to Varicosities r. lower ext. and now wears compression stockings daily. FH+ parkinsons father passed at 83. MELINDA Compliance Data 09/21/2024 - 12/21/2024 Total avg use is 88/90 days, and >4 hours is 94% 6 hours and 50min Med pressures are [id number] and Leaks are 3.4 to [id number] AHI is 3/hr His BMI is elevated 49.0, and bp is still elevated to 142/88. He says he gets stressed with work in the afternoons at work. He changed out mask and really likes the soft material of the new mask, however he continues to have multiple leaks. Insurance denied his titration study. He continues to have trouble with the pressures and feels like they blow on his face. He struggles to keep the mask on, and has hypertension. He is cognizant of oral hygiene to prevent URI, and thrush. He denies RLS and paresthesias since starting magnesium 400mg the bilateral feet cramps and tingling has improved. He sleeps well at night now and notices he is getting into deeper stages of sleep, however is following up with urology due to multiple arousals at night 3- 4 for bathroom breaks and snoring has improved. Denies morning headaches. Memory and mood is stable. He washes the mask, hoses and changes the filters, fills the reservoir with water. [facility] Medical History Hyperlipidemia Pure hypercholesterolemia, unspecified Severe obesity with body mass index (BMI) of 36.0 to 36.9 with serious comorbidity Prediabetes Establishing care with new doctor, encounter for Erectile dysfunction Hypertension Obstructive sleep apnea hypopnea, severe Loud snoring Hypersomnia Pilonidal cyst Surgical History History of colonoscopy H/O vasectomy Family History Father No problems noted. Mother No problems noted. Sister Kidney disease Heart disease Social History Household Members: Spouse Housing: House Alcohol intake: current Alcohol intake frequency: a few times a month Comment: 2-3 beer Patient Tobacco Use Status: Never used Tobacco service: No Current occupational status: employed Current occupation: [employer] Cognitive needs: No Hearing needs: No Vision needs: Yes (reading glasses) Physical Exam Vital Signs: Last Vital Signs Pulse 94 12/22/24 12:52 BP 142/88 H 12/22/24 12:52 Pulse Ox 97 12/22/24 12:52 Oxygen Delivery Method Room Air 12/22/24 12:52 BMI result Body Mass Index 49.0 Cooperative, gentleman, BMI is 49.0. BP is elevated. Const General: cooperative and no acute distress Nutritional Appearance: obese (BMI is 37.7) centrally obese Orientation/consciousness: patient oriented x3 HEENT Face and sinus: Yes normal facial exam and Yes face symmetric Teeth and gingiva: other ([place] score of 3) Eyes Pupils: Equal, round and reactive pupils present Neck Thyroid: other (ROM limited to the right) Resp Effort & Inspection: normal respiratory effort and able to speak in complete sentences Neuro General: patient oriented x3 Cranial nerves: Yes Facial sensation intact/muscles of mastication intact, Yes Equal, round and reactive pupils present, Yes Normal accommodation reflex present, Yes Normal facial strength present, Yes Midline tongue present and Yes Ability to bilaterally elevate shoulders present Gait exam (Neuro): Other gait observations present (stooped at hips) Motor exam (neuro): 5/5 motor strength present throughout and Normal motor muscle tone present throughout Psych Appearance: grossly normal Mental Status: mental status grossly normal Thought process: Normal thought process present Thought content: Normal thought content present Results Reviewed Results Reviewed: MELINDA Compliance Data 09/21/2024 - 12/21/2024 Total avg use is 88/90 days, and >4 hours is 94% 6 hours and 50min Med pressures are [id number] and Leaks are 3.4 to [id number] AHI is 3/hr Assessment & Plan Assessment & Plan (1) Sleep disturbances: Comment: urology for nocturia Code(s): G47.9 - Sleep disorder, unspecified Category: Medical (2) MELINDA on CPAP: Code(s): G47.33 - Obstructive sleep apnea (adult) (pediatric) Category: Medical (3) Hypertension: Code(s): I10 - Essential (primary) hypertension Category: Medical Qualifiers: Hypertension type: primary hypertension Qualified Code(s): I10 - Essential (primary) hypertension (4) Nocturia more than twice per night: Code(s): R35.1 - Nocturia Category: Medical Plan: Plan MELINDA continue with CPAP therapy will evaluate after titration is completed, he continues to feel pressures and leaks are disturbing. Nocturia with fragmented sleep, limit fluids 2hours prior to night time. Has a f/u with urology in 2024. Fragmented sleep Start melatonin with [id number]-vsh-atfltgmp-hops to induce sleep. RLS, continue magnesium 400mg po daily for night time cramps. BMI is elevated, continue to bike, or swim as tolerable, staying active, walking if tolerable. Orders: Orders RT PSG in-lab sleep titration Today G47.33 - Obstructive sleep apnea (adult) (pediatric), I10 - Essential (primary) hypertension Medications: New [id number] 0.08-35-825-200 mg melatonin orally daily; 30 caps 0RF fragmented sleep 30 days MDD 0.25 G47.9 - Sleep disorder, unspecified Patient Instructions: Sleep Hygiene provided: set a scheduled bedtime and wake time to help regulate the circadian rhythm and balance the release of pituitary hormones. Sleep in a dark room, temperatures below 68 degrees, and no devices n bed. Limit caffeinated products 6 hours prior to bed, and limit fluids 2-4 hours prior to bed. Gentle night yoga, diffusing essential oils, and playing soft music can be relaxing. significant patient education is provided re: cv risks associated with hypertension and severe melinda, the #1 modifiable risk factor of cardiovascular events is good blood pressure control. Coding Level of Care Code Est Pt Level 4 (02675) Diagnoses Sleep disturbances G47.9 MELINDA on CPAP G47.33 Primary hypertension I10 Hypertension type: primary hypertension Nocturia more than twice per night R35.1 Time Spent (min) 31 Comment needs titration and bp is still elevated
--- OUTSIDE RECORDS SUMMARY | 2024-12-22 13:22 | XMS_ITS | Patient Health Record ---
[facility] Address [address] [place] [address] Care Team Providers Care Air Analyst Name Role Phone Jimmy Baxter MD Primary Care Provider Trell Gutierrez Unavailable [phone] Allergies Allergen (clinical drug ingredient) Drug/Non Drug [...] Status W/U Status Risk Notes Problem Bursitis (68249416) Bursitis (727.3) Active confirmed Problem Myositis (62460129) Myositis (729.1) Active confirmed Problem Pain in limb (37813256) Pain in Limb (729.5) Active confirmed Problem Plantar fasciitis (762234533) Plantar Fasciitis (728.71) Active confirmed Problem Tinea pedis (4776788) Tinea Pedis (110.4) Active confirmed Plan Of Treatment No Information Insurance Providers Payer Name Payer Address Payer Phone Subscriber Number Group Number Insured Name Patient Relationship to Insured Coverage Start Date Coverage End Date [facility] All Others [address] [place] [address] [phone] [id number] Kolby Gross Self - patient is the insured Medical (General) History Medical History History ICD Code Back,Hip,and Knee pain Chicken pox Measles
--- OUTSIDE RECORDS SUMMARY | 2024-12-22 13:22 | XMS_ITS | Patient Health Record ---
Author Organization [facility] Address [address] [place] [address] Care Team Providers Care Route Clerk Name Role Phone DAISY DASH Primary Care Provider Rock Boykin Unavailable [phone] Allergies Allergen (clinical drug ingredient) Drug/Non Drug [...] Problem Status W/U Status Risk Notes Problem 770115658 History of adenomatous polyp of colon (Z86.010) Active confirmed Problem 548992073 Gastroesophageal reflux disease, esophagitis presence not specified (K21.9) Active confirmed Problem 02023929 Heme + stool (R19.5) Active confirmed Plan Of Treatment Future Test Test Name Order Date COLONOSCOPY 02/09/2015 UPPER GI ENDOSCOPY 07/16/2018 COLONOSCOPY 07/16/2018 Next Appt Details Provider Name:Rock Lucia , 01/19/2025 04:20:00 PM, [address] [place] [address], [address], [place], [address], Insurance Providers Payer Name Payer Address Payer Phone Subscriber Number Group Number Insured Name Patient Relationship to Insured Coverage Start Date Coverage End Date [facility] [address] [place], [place] [id number] [phone] [id number] VICENTE SORIANO Self - patient is the insured Medical (General) History Medical History History ICD Code Denies [place],DM,CVA,Lung disease,renal dise ase Negative colonoscopy in 05/[address] Ayers Left knee pain/arthritis-meniscal tear Hypertension Screening colonoscopy in 2014--1 small tubular adenoma, diverticulosis and internal hemorrhoids Surgical History Surgery Date(Month/Year) pilonidal cyst removed by Dr Ayers
== END 2024-12-22 13:47 | disposition home or self-care (01) ==
LOC: HO.HSMS 12:51
PROVIDERS: PCP Internal Medicine; Visit Provider Physician Assistant Medical
DX: G47.9 Sleep disorder, unspecified (principal); G47.33 Obstructive sleep apnea (adult) (pediatric); I10 Essential (primary) hypertension; R35.1 Nocturia
CPT/HCPCS: 99214

== ENCOUNTER 2025-01-17 15:57 | Outpatient (AMB) | payer BC, SELFPAY ==
--- NOTE | 2025-01-17 15:56 | MHC.PC.OV ---
Vital Signs 01/17/25 15:57 Height 6 ft 1 in Weight 377 lb 4 oz BMI 49.8 BP 126/63 Blood Pressure Location Lt brachial Position Sitting Respiration 16 Pulse 85 Pulse Source Pulse Oximeter Temp 98 F Temp Source Temporal Artery Scan Pulse Oximetry (%) 97 Oxygen Delivery Method Room Air Intake Visit Reasons: physical Drinking Water Technician Required: No Accompanied by: Self / Same As Patient Allergies azithromycin (From Zithromax Z-Burton) Allergy (Intermediate, Verified 01/17/25 16:15) Diarrhea Penicillins (PENICILLINS) Allergy (Intermediate, Verified 01/17/25 16:15) HIVES lisinopril (LISINOPRIL) Adverse Reaction (Intermediate, Verified 01/17/25 16:15) COUGH Medication List - Last Reconciled 01/17/25 by Lizzy Herrera PA-C clotrimazole-betamethasone 1-0.05 % appl topical DAILY ibuprofen 800 mg PO TID losartan 50 mg PO DAILY sildenafil mg PO Tobacco use date assessed: 09/14/24 Dental Screening Dental Screen Date: 09/14/24 Did you have a dental visit in the last 12 months?: Yes Did you have a dental problem in the last 6 months where you did not have access to dental care?: No Was dental information given to patient?: Patient has dentist HPI physical HPI Details The patient is a 64-year-old male presenting for an annual physical examination. The patient has a history of prediabetes, with an A1c level of 5.9% noted in August, indicating a prediabetic state. He has been advised to improve his diet to prevent progression to diabetes. The patient is also managing hyperlipidemia, with a total cholesterol level of 217 mg/dL and LDL cholesterol at 135 mg/dL. He prefers lifestyle modifications over medication to manage his cholesterol levels. Hypertension is being managed with losartan 50 mg daily. The patient reports adherence to this medication regimen. The patient experiences chronic pain due to four herniated discs, which is managed with acupuncture and ibuprofen as needed. He reports significant relief from acupuncture treatments. A history of varicose veins is noted, with a recent procedure performed in October to address this issue. The patient wears compression stockings daily to manage symptoms. The patient has been diagnosed with sleep apnea and uses a CPAP machine, with follow-up care managed by a hydraulic blocker. Social History - Exercise: Engages in physical activities such as carrying firewood, which he finds physically demanding. - Nutrition: Consumes a diet rich in vegetables and fruits, including homemade salads and fresh produce from his garden. - Alternative Medicine: Utilizes acupuncture for pain management related to herniated discs. [facility] Medical History (Updated 01/17/25 @ 16:52 by Lizzy Herrera PA-C) Sleep apnea Varicose veins of both lower extremities Chronic back pain Annual physical exam Hyperlipidemia Pure hypercholesterolemia, unspecified Severe obesity with body mass index (BMI) of 36.0 to 36.9 with serious comorbidity Prediabetes Establishing care with new doctor, encounter for Erectile dysfunction Hypertension Obstructive sleep apnea hypopnea, severe Loud snoring Hypersomnia Pilonidal cyst Surgical History History of colonoscopy H/O vasectomy Family History Father No problems noted. Mother No problems noted. Sister Kidney disease Heart disease Social History Household Members: Spouse Housing: House Alcohol intake: current Alcohol intake frequency: a few times a month Comment: 2-3 beer Patient Tobacco Use Status: Never used Tobacco service: No Current occupational status: employed Current occupation: [employer] Cognitive needs: No Hearing needs: No Vision needs: Yes (reading glasses) Questionnaire PHQ-9 Over the last 2 weeks, how often have you been bothered by any of the following problems? 1. Little interest or pleasure in doing things: not at all 2. Feeling down, depressed, or hopeless: not at all 3. Trouble falling or staying asleep, or sleeping too much: several days 4. Feeling tired or having little energy: several days 5. Poor appetite or overeating: not at all 6. Feeling bad about yourself - or that you are a failure or have let yourself or your family down: not at all 7. Trouble concentrating on things, such as reading the newspaper or watching television: not at all 8. Moving or speaking so slowly that other people could have noticed. Or the opposite - being so fidgety or restless that you have been moving around a lot more than usual: not at all 9. Thoughts that you would be better off or of hurting yourself in some way: not at all Total score: 2 Depression Screening Interpretation: Negative Depression Screening Done: Yes 01717 - PHQ-9 Billing: Yes Source: Developed by Drs. Rock Cordero, Marilin Chaudhary, Bo Bowser and colleagues, with an educational solomon from [employer]. Thrive Questionnaire Date Thrive assessed: 09/14/24 I am a: Patient What is your living situation today?: I have a steady place to live Within the past 12 months, did the food you bought not last and you didn't have the money to get more?: Never true Within the past 12 months, did you worry whether your food would run out before you got money to buy more?: Never true Do you have trouble paying for medicines?: No Do you have trouble getting transportation to medical appointments?: No Do you have trouble paying your heating and electricity bill?: No Do you have trouble taking care of your child, family member or friend?: No Do you have trouble with day-to-day activities such as bathing, preparing meals, shopping, managing finances, etc.?: No Are you currently unemployed and looking for a job?: No Are you interested in more education?: No Please select the resources that you would like help with: None THRIVE Score: 0 AUDIT C Alcohol Use Questionnaire (AUDIT-C) 1. How often do you have a drink containing alcohol?: 2-4 times a month 2. How many drinks containing alcohol do you have on a typical day when you are drinking?: 1 or 2 3. How often do you have six or more drinks on one occasion?: Never Total Score: 2 Score Reviewed/Action Taken: No EUGENE-7 AMB Questionnaire EUGENE-7 Date EUGENE - 7 assessed: 09/14/24 Feeling nervous, anxious, or on edge: 0 = Not at all Not being able to stop or control worryin = Not at all Worrying too much about different things: 0 = Not at all Trouble relaxin = Not at all Being so restless that it is hard to sit still: 0 = Not at all Becoming easily annoyed or irritable: 0 = Not at all Feeling afraid as if something awful might happen: 0 = Not at all Total EUGENE-7 score (0-4 normal; 5-9 mild; 10-14 moderate; 15-21 severe): 0 Source: Developed by Drs. Rock Cordero, Marilin Chaudhary, Bo Bowser and colleagues, with an educational solomon from [employer]. EUGENE-7 Assessment Billing EUGENE-7 Assessment Tool: EUGENE-7 Assessment 07310 Review of Systems Const Details: - General: Denies unintentional weight loss. - Cardiovascular: Denies chest pain. - Gastrointestinal: Denies black or bloody stools. - Musculoskeletal: Reports chronic pain due to herniated discs. - Neurological: Denies numbness or tingling. All systems reviewed & are unremarkable except as noted in HPI and below Physical exam (Primary Care) Vital Signs: Last Vital Signs Temp 98 F 01/17/25 15:57 Pulse 85 01/17/25 15:57 Resp 16 01/17/25 15:57 BP 126/63 01/17/25 15:57 Pulse Ox 97 01/17/25 15:57 Oxygen Delivery Method Room Air 01/17/25 15:57 Care Plan Goal for BP management: <140/90 at Goal BMI result Body Mass Index 49.8 BMI Assessment/Plan discussion: High BMI High, discussed plan: lifestyle, weight reduction, dietary, physical activity, alcohol moderation and other Tobacco/Smoking Status: Tobacco use Status Tobacco use date assessed 09/14/24 01/17/25 16:01 Patient Tobacco Use Status Never used Tobacco 01/17/25 16:01 PHQ-9: PHQ-9 Score PHQ-9: Total score 2 01/17/25 16:41 Depression Screening Interpretation: Negative Thrive Assessment: Date of Thrive Assessment Date Thrive assessed 09/14/24 01/17/25 16:01 Const Other: Appearance: Alert. Oriented X3. No acute distress. Head: Normal external exam. Normocephalic. Atraumatic. Eyes: Pupils are equal, round, and reactive to light. Extraocular movements intact. Conjunctiva and sclera normal. Eyelids normal. Ears: External auditory canal normal. Tympanic membranes normal. Throat: Pharynx normal. Uvula midline. Moist mucous membranes. Neck: Normal inspection. Neck supple. Full range of motion. Cardiovascular: Normal heart rate and rhythm. Heart sound normal. No murmurs noted. Pulses normal throughout. Respiratory: No respiratory distress. Painless inspiration. Breath sounds normal. No wheezes/rales/rhonchi noted. Chest nontender. No accessory muscle usage noted or decreased air movement noted. Abdomen: Soft and nontender. No distention noted. No organomegaly noted. Back: No costovertebral angle tenderness. Full range of motion noted. Skin: Skin warm and dry. Normal skin color. Normal skin turgor. No rashes/lesions/lacerations noted. Extremities: No lower extremity edema. Extremities exhibit normal range of motion. Neuro: Oriented X 3. No motor deficit. No sensory deficit. Reflexes normal. Results AMB Hemoglobin A1c AMB Hemoglobin A1c 5.9 % Last Edit by MONALISA Chapman on 01/17/25 16:50 Results Reviewed Results Reviewed: - Labs: A1c 5.9%, indicating prediabetes. - Labs: Total cholesterol 217 mg/dL, LDL cholesterol 135 mg/dL. - Labs: Triglycerides 114 mg/dL, within normal range. Coding Level of Care Code Est Pt Level 4 (63620) Est Pt Prev Care 40-64y(95009) Diagnoses Annual physical exam Z00.00 Prediabetes R73.03 Hyperlipidemia E78.5 Primary hypertension I10 Hypertension type: primary hypertension Chronic back pain M54.9; G89.29 Varicose veins of both lower extremities I83.93 Sleep apnea G47.30 Additional Codes EUGENE-7 Assessment Billing - EUGENE-7 Assessment Tool: EUGENE-7 Assessment 18296 ([id number]) PHQ-9 - 34373 - PHQ-9 Billing: Yes ([id number]) Assessment & Plan Assessment & Plan (1) Annual physical exam: Code(s): Z00.00 - Encounter for general adult medical examination without abnormal findings Category: Medical (2) Prediabetes: Code(s): R73.03 - Prediabetes Category: Medical Plan: The patient is advised to improve dietary habits to prevent progression to diabetes. A follow-up A1c test may be considered to monitor glucose levels. (3) Hyperlipidemia: Code(s): E78.5 - Hyperlipidemia, unspecified Category: Medical Plan: The patient prefers lifestyle modifications over pharmacological interventions to manage cholesterol levels. Dietary changes and regular monitoring of lipid levels are recommended. (4) Hypertension: Code(s): I10 - Essential (primary) hypertension Category: Medical Qualifiers: Hypertension type: primary hypertension Qualified Code(s): I10 - Essential (primary) hypertension Plan: Hypertension is managed with losartan 50 mg daily, with good adherence reported by the patient. (5) Chronic back pain: Code(s): M54.9 - Dorsalgia, unspecified; G89.29 - Other chronic pain Category: Medical Plan: Pain management includes acupuncture and ibuprofen as needed, with significant relief reported from acupuncture. (6) Varicose veins of both lower extremities: Code(s): I83.93 - Asymptomatic varicose veins of bilateral lower extremities Category: Medical Plan: The patient underwent a procedure in October and continues to wear compression stockings daily. (7) Sleep apnea: Code(s): G47.30 - Sleep apnea, unspecified Category: Medical Plan: The patient uses a CPAP machine for management, with follow-up care by a hydraulic blocker. Plan Plan Patient was informed and verbally consented to the use of an ambient scribe for clinic note documentation during this visit. 1. Prediabetes The patient is advised to improve dietary habits to prevent progression to diabetes. A follow-up A1c test may be considered to monitor glucose levels. 2. Hyperlipidemia The patient prefers lifestyle modifications over pharmacological interventions to manage cholesterol levels. Dietary changes and regular monitoring of lipid levels are recommended. 3. Hypertension Hypertension is managed with losartan 50 mg daily, with good adherence reported by the patient. 4. Chronic Pain Due To Herniated Discs Pain management includes acupuncture and ibuprofen as needed, with significant relief reported from acupuncture. 5. Varicose Veins The patient underwent a procedure in October and continues to wear compression stockings daily. 6. Sleep Apnea The patient uses a CPAP machine for management, with follow-up care by a hydraulic blocker. During the visit, we discussed the importance of dietary modifications to manage prediabetes and hyperlipidemia. The patient expressed a preference for lifestyle changes over medication for cholesterol management. We also reviewed the current management of hypertension with losartan and the use of acupuncture for chronic pain relief. Orders: Orders AMB Hemoglobin A1c Today R73.03 - Prediabetes Medications: New losartan 50 mg PO DAILY 90 tabs 3RF Changed From clotrimazole-betamethasone 1-0.05 % topical DAILY To clotrimazole-betamethasone 1-0.05 % 1 appl topical DAILY 180 grams 3RF Patient Instructions: - Follow a healthy diet to manage blood sugar and cholesterol levels. - Continue using the CPAP machine as prescribed for sleep apnea. - Wear compression stockings daily to manage varicose veins. - Schedule a follow-up appointment for a repeat A1c test.
[2025-01-17 15:57] VITALS: BP 126/63; PULSE 85; RESP 16; TEMP 36.6; O2SAT 97; BMI 49.8
== END 2025-01-17 16:49 | disposition home or self-care (01) ==
LOC: HO.HMCSH 15:57
PROVIDERS: PCP Internal Medicine; Visit Provider Physician Assistant Medical
DX: Z00.00 Encounter for general adult medical examination without abnormal findings (principal); R73.03 Prediabetes; E78.5 Hyperlipidemia, unspecified; I10 Essential (primary) hypertension; M54.9 Dorsalgia, unspecified; G89.29 Other chronic pain; I83.93 Asymptomatic varicose veins of bilateral lower extremities; G47.30 Sleep apnea, unspecified

== ENCOUNTER → 2025-01-17 15:57 | Outpatient (BNVA) | payer BC, SELFPAY | PROVIDERS: PCP Internal Medicine; Visit Provider Physician Assistant Medical | DX: Z00.00 Encounter for general adult medical examination without abnormal findings (principal); I83.93 Asymptomatic varicose veins of bilateral lower extremities; R73.03 Prediabetes; E78.5 Hyperlipidemia, unspecified; I10 Essential (primary) hypertension; G47.30 Sleep apnea, unspecified; M54.9 Dorsalgia, unspecified; G89.29 Other chronic pain; Z99.89 Dependence on other enabling machines and devices | CPT/HCPCS: 83036; 96127 ==

== ENCOUNTER → 2025-02-18 19:30 | Outpatient (REF) | payer BC, SELFPAY ==
--- OUTSIDE RECORDS SUMMARY | 2025-02-18 20:59 | XMS_ITS | Patient Health Record ---
Author Organization [facility] Address [address] [place] [address] Care Team Providers Care Field Service Supervisor Name Role Phone DAISY DASH Primary Care Provider Rock Boykin Unavailable [phone] Allergies Allergen (clinical drug ingredient) Drug/Non Drug Allergy documented on EMR Reaction Allergy Type Onset Date Status Penicillin Unknown Drug Allergy Active lisinopril Lisinopril Unknown Drug Allergy Activ e Reason For Referral No Information Medications Medication SIG (Take, Route, Frequency, Duration) Notes Start Date End Date Status Vitamin B Complex - as directed Orally o nce a day Active Losartan Potassium 50 MG 1 tablet Orally Once a day for 30 day(s) Active Ibuprofen 800 MG TAKE 1 TABLET BY MAMADOU TH THREE TIMES A DAY WITH FOOD Oral for 30 Days Active Once Daily - 1 tablet Orally Once a day mens 50 Active Clotrimazole-Betamethasone 1-0.05 % APPLY TO AFFECTED AREA TWICE A DAY IN THE MORNING AND IN THE EVENING External for 7 Days Active Losartan Potassium 50 MG Oral for 90 Days Active Clotrimazole-Betamethasone 1-0.05 % External for 90 Days Active Sildenafil Citrate 100 MG TAKE 1 TABLET BY MOUTH EVERY DAY NEEDED ABOUT 1 HOUR BEFORE SEXUAL ACTIVITY Oral for 30 Days Active Immunizations Vaccine Route Administration Date Status Comme nts Influenza Unknown 07/16/2018 Refused Influenza Unknown 01/19/2025 Refused Social History Alcohol Screen Question Answer [...] occasional alcoho l Nonsmoker; occasional alcoho l Nonsmoker; occasional alcoho l Problems Problem Type SNOMED Code ICD Code Onset Dates Problem Status W/U Status Risk Notes Problem Colon cancer screening (603722758) Colon cancer screening (Z12.11) Active confirmed Problem 296903005 History of adenomatous polyp of colon (Z86.010) Active confirmed Problem Preprocedural examination (553650785690523 ) Preprocedural examination (Z01.818) Active confirmed Problem 929920955 Gastroesophageal reflux disease, esophagitis presence not specified (K21.9) Active confirmed Problem 77523803 Heme + stool (R19.5) Active confirmed Vital Signs Temperature 97.9 degrees Fahrenheit 01/19/2025 Blood pressure diastolic 01 mm Hg 01/19/2025 Height 72 in 01/19/2025 Blood pressure systolic 001 mm Hg 01/19/2025 Weight 377 lbs 01/19/2025 BMI 51.12 kg/m2 01/19/2025 Procedures Procedure Date Ordered Date Performed Result Body Sit e COLONOSCOPY 01/19/2025 N/A Encounters Encounter Location Date Provider Diagnosis [facility] [address] [place] [address] 01/19/2025 Rock Lucia History of adenomato us polyp of colon Z86.010 ; Preprocedural examination Z01.818 and Colon cancer screening Z12.11 Assessments Encounter Date Diagnosis (ICD Code) Assessment Notes Treatment Notes Treatment Clinical Notes Section Notes 01/19/2025 History of adenomatous polyp of colon (ICD-10 - Z86.010) Overall, Vicente appears well from a GI standpoint. He is not having any new or worrisome GI complaints. Given a previous history of a tubular adenoma and his last colonoscopy being over 5 years ago, I did recommend a follow-up colonoscopy for further screening purposes. We did review the rationale for this in regard to colon cancer prevention. Full consent has been obtained for this, including risks of bleeding and perforation. The procedure will be done with monitored anesthesia care. He was given the below instructions regarding adjustment of his medication for the procedure. Vicente was comfortable with this plan. Thank you again for allowing me to participate in Vicente's care. I shall continue to keep you advised of his progress. 01/19/2025 Preprocedural examination (ICD-10 - Z01.818) Overall, Vicente appears well from a GI standpoint. He is not having any new or worrisome GI complaints. Given a previous history of a tubular adenoma and his last colonoscopy being over 5 years ago, I did recommend a follow-up colonoscopy for further screening purposes. We did review the rationale for this in regard to colon cancer prevention. Full consent has been obtained for this, including risks of bleeding and perforation. The procedure will be done with monitored anesthesia care. He was given the below instructions regarding adjustment of his medication for the procedure. Vicente was comfortable with this plan. Thank you again for allowing me to participate in Vicente's care. I shall continue to keep you advised of his progress. 01/19/2025 Colon cancer screening (ICD-10 - Z12.11) Overall, Vicente appears well from a GI standpoint. He is not having any new or worrisome GI complaints. Given a previous history of a tubular adenoma and his last colonoscopy being over 5 years ago, I did recommend a follow-up colonoscopy for further screening purposes. We did review the rationale for this in regard to colon cancer prevention. Full consent has been obtained for this, including risks of bleeding and perforation. The procedure will be done with monitored anesthesia care. He was given the below instructions regarding adjustment of his medication for the procedure. Vicente was comfortable with this plan. Thank you again for allowing me to participate in Vicente's care. I shall continue to keep you advised of his progress. Plan Of Treatment Pending Test Test Name Order Date COLONOSCOPY 01/19/2025 Future Test Test Name Order Date COLONOSCOPY 02/09/2015 UPPER GI ENDOSCOPY 07/16/2018 COLONOSCOPY 07/16/2018 Next Appt Details Provider Name:Rock Bradford Rea , 05/06/2025 07:30:00 AM, [address] , [place], [place], [id number], Insurance Providers Payer Name Payer Address Payer Phone Subscriber Number Group Number Insured Name Patient Relationship to Insured Coverage Start Date Coverage End Date [facility] [address] [place], [place] [id number] [phone] [id number] VICENTE SORIANO Self - patient is the insured Medical (General) History Medical History History ICD Code Denies [place],DM,CVA,Lung disease,renal dise ase Negative colonoscopy in 05/[address] Ayers Left knee pain/arthritis-meniscal tear Hypertension Screening colonoscopy in 2014- 1 small tubular adenoma, diverticulosis and internal hemorrhoids Colonoscopy 2018 was negativ e except for hemorrhoids and diverticulosis- -This was done for evaluation of heme positive stool EGD 2018 for the evaluation of some reflux revealed only a small hiatal hernia but no other abnormalities- there was no evidence of any esophagitis or Reid's esophagus Lower back disc disease- -treated with a cupuncture Sleep apnea-uses CPAP Surgical History Surgery Date(Month/Year) RLE varicose veins 11/17 Pilonidal cyst removed by Dr Ayers
--- OUTSIDE RECORDS SUMMARY | 2025-02-18 20:59 | XMS_ITS | Patient Health Record ---
Author [facility] Address [address] [place] [address] Care Team Providers Care Surveyor Hydrographic Name Role Phone Jimmy Baxter MD Primary Care Provider Trell Gutierrez Unavailable [phone] Allergies Allergen (clinical drug ingredient) Drug/Non Drug [...] Status W/U Status Risk Notes Problem Bursitis (46293236) Bursitis (727.3) Active confirmed Problem Myositis (11496872) Myositis (729.1) Active confirmed Problem Pain in limb (99527077) Pain in Limb (729.5) Active confirmed Problem Plantar fasciitis (052966376) Plantar Fasciitis (728.71) Active confirmed Problem Tinea pedis (2344724) Tinea Pedis (110.4) Active confirmed Plan Of Treatment No Information Insurance Providers Payer Name Payer Address Payer Phone Subscriber Number Group Number Insured Name Patient Relationship to Insured Coverage Start Date Coverage End Date [facility] [employer] [address] [place] [address] [id number] Kolby Gross Self - patient is the insured Medical (General) History Medical History History ICD Code Back,Hip,and Knee pain Chicken pox Measles
== END ==
LOC: HO.SL 19:30
PROVIDERS: PCP Internal Medicine; Visit Provider Physician Assistant Medical
DX: G47.33 Obstructive sleep apnea (adult) (pediatric) (principal); I10 Essential (primary) hypertension
CPT/HCPCS: 95811

== ENCOUNTER → 2025-02-18 22:21 | Outpatient (BNV) | payer BC, SELFPAY | PROVIDERS: PCP Internal Medicine; Visit Provider Psychiatry & Neurology Neurology | DX: G47.33 Obstructive sleep apnea (adult) (pediatric) (principal) | CPT/HCPCS: 95811 ==

== ENCOUNTER 2025-03-03 15:26 | Outpatient (AMB) | payer BC, SELFPAY ==
[2025-03-03 15:27] VITALS: BMI 49.7
--- NOTE | 2025-03-03 15:27 | MHC.OFFVIS ---
Vital Signs 03/03/25 15:27 Height 6 ft 1 in Weight 377 lb BMI 49.7 Intake Visit Reasons: 3m follow up- no testing Intake Note: 3 mo follow up Right GSV RFA 11/12/24 w/ LE swelling. 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 He had previously undergone right great saphenous vein ablation and he had a large cluster in the right thigh which had become phlebitic. It has significantly decreased over time. He now presents for routine follow-up. Of note he is concerned about the left lower extremity which does have significant swelling and discomfort. He does have a cluster of veins in the left medial thigh as well. He has been compliant with his compression stockings which have provided minimal relief. [facility] Medical History Sleep apnea Varicose veins of both lower extremities Chronic back pain Annual physical exam Hyperlipidemia Pure hypercholesterolemia, unspecified Severe obesity with body mass index (BMI) of 36.0 to 36.9 with serious comorbidity Prediabetes Establishing care with new doctor, encounter for Erectile dysfunction Hypertension Obstructive sleep apnea hypopnea, severe Loud snoring Hypersomnia Pilonidal cyst Surgical History History of colonoscopy H/O vasectomy Family History Father No problems noted. Mother No problems noted. Sister Kidney disease Heart disease Social History Household Members: Spouse Housing: House Alcohol intake: current Alcohol intake frequency: a few times a month Comment: 2-3 beer Patient Tobacco Use Status: Never used Tobacco service: No Current occupational status: employed Current occupation: [employer] Cognitive needs: No Hearing needs: No Vision needs: Yes (reading glasses) Review of Systems Const Reports as per HPI ENT Reports no additional complaints Card Denies chest pain, Denies chest pain at rest and Denies chest pain with activity Resp Denies chest congestion and Denies cough GI Reports no additional complaints Musc Details: pain over varicosities, aching of lower extremities, swelling, cramping, heaviness and tiredness, itching Denies abnormal gait Skin/Breast Reports pruritus and Denies wounds Neuro Reports no additional complaints and Denies abnormal gait Psych Denies no additional complaints Physical Exam Vital Signs: BMI result Body Mass Index 49.7 Const General: cooperative, healthy appearing and comfortable Orientation/consciousness: oriented to person, oriented to place and oriented to time Neck Carotids: no bruits Chest Chest palpation & inspection: normal inspection of the chest and normal palpation of entire chest wall Resp Effort & Inspection: normal respiratory effort and able to speak in complete sentences Cardio Rate: regular rate Heart sounds: S1 normal heart sound present and S2 normal heart sound present Peripheral pulses: Peripheral pulses 2+ throughout GI Inspection: Yes normal to inspection Skin Other: +2 edema, large rope-like varicosities greater than 4 mm CEAP Classification C4 - skin color changes Ep - Etiology Primary As - superficial veins P - reflux General skin exam: dry skin Neuro General: oriented to person, oriented to place and oriented to time Extrem Right lower extremity: full ROM, normal capillary refill and edema Left lower extremity: full ROM, normal capillary refill and edema Psych Mental Status: mental status grossly normal Results Reviewed Results Reviewed: Brief summary of venous insufficiency testing is as follows: right great saphenous vein: Ablated right small saphenous vein: negative right accessory vein: none present left great saphenous vein: Positive left small saphenous vein: negative left accessory vein: none present Please note there is no evidence of any venous aneurysms or significant tortuosity Assessment & Plan Assessment & Plan (1) Varicose veins of right lower extremity with inflammation: Comment: 11/12/2024 - right great saphenous vein radiofrequency ablation Code(s): I83.11 - Varicose veins of right lower extremity with inflammation Category: Medical Plan: Doing well. May require future microphlebectomy in particular the medial thigh and just above knee. (2) Varicose veins of left lower extremity with inflammation: Code(s): I83.12 - Varicose veins of left lower extremity with inflammation Category: Medical Plan: This patient has varicose veins with inflammation. They continue to be a source of discomfort for the patient. The patient has tried conservative treatment with compression, leg elevation and exercise program for over 3 months time. They have been compliant with all treatment. This has provided minimal relief for the patient. I do not anticipate this course of treatment will alter the underlying etiology. The patient has been scheduled for lower extremity venous treatment inclusive of --- left great saphenous vein radiofrequency ablation. Risks, benefits, and complications of this procedure has been discussed in detail with the patient including but not limited to bleeding, infection, and the development of a DVT. The patient has demonstrated a clear understanding and has consented. We will schedule the patient as soon as possible. Thank you for allowing us to participate in this patient's care. If there are any questions or concerns please do not hesitate to contact us. Coding Level of Care Code Est Pt Level 4 (55473) Diagnoses Varicose veins of right lower extremity with inflammation I83.11 Varicose veins of left lower extremity with inflammation I83.12
== END 2025-03-03 15:56 | disposition home or self-care (01) ==
LOC: HO.HVS 15:26
PROVIDERS: PCP Internal Medicine; Visit Provider Surgery Vascular Surgery
DX: I83.11 Varicose veins of right lower extremity with inflammation (principal); I83.12 Varicose veins of left lower extremity with inflammation
CPT/HCPCS: 99214

== ENCOUNTER 2025-03-11 10:18 | Outpatient (AMB) | payer BC, SELFPAY ==
--- NOTE | 2025-03-11 11:37 | A.OFFVIS_ITS ---
Intake Visit Reasons: Left GSV RFA Accompanied by: Self / Same As Patient Allergies azithromycin (From Zithromax Z-Burton) Allergy (Intermediate, Verified 03/11/25 11:37) Diarrhea Penicillins (PENICILLINS) Allergy (Intermediate, Verified 03/11/25 11:37) HIVES lisinopril (LISINOPRIL) Adverse Reaction (Intermediate, Verified 03/11/25 11:37) COUGH PFSH Medical History Sleep apnea Varicose veins of both lower extremities Chronic back pain Annual physical exam Hyperlipidemia Pure hypercholesterolemia, unspecified Severe obesity with body mass index (BMI) of 36.0 to 36.9 with serious comorbidity Prediabetes Establishing care with new doctor, encounter for Erectile dysfunction Hypertension Obstructive sleep apnea hypopnea, severe Loud snoring Hypersomnia Pilonidal cyst Surgical History History of colonoscopy H/O vasectomy Family History Father No problems noted. Mother No problems noted. Sister Kidney disease Heart disease Social History Household Members: Spouse Housing: House Alcohol intake: current Alcohol intake frequency: a few times a month Comment: 2-3 beer Patient Tobacco Use Status: Never used Tobacco service: No Current occupational status: employed Current occupation: [employer] Cognitive needs: No Hearing needs: No Vision needs: Yes (reading glasses) Office Procedures Vascular Office Procedure Details Details: Diagnosis: Varicose veins with inflammation of left leg Procedure: Endovenous radiofrequency ablation of the left great saphenous vein(s) of the lower extremity. Anesthesia: Local infiltration 5 cc, Tumescent 400 cc. Estimated Blood Loss: minimal Specimen: Varicose veins The patient was transferred to the procedure suite and the insufficient sapheno us vein was mapped by ultrasound and diagrammed on the overlying skin. The depth and diameter of the vein(s) to be treated was documented. The varicose tributary veins and suitable access sites were identified and mapped as well. The patient was then positioned supine on the procedure table. The affected limb was prepped and draped in the usual sterile fashion. The RF catheter was placed on the sterile field, flushed and wiped down, prepared, and connected by a sterile cable. The patient was placed in supine position and local anesthesia was instilled in the skin overlying the access site. A skin incision was made overlying the identified and mapped great saphenous vein entry site. The vein was accessed using ultrasound guidance and the Seldinger technique, a guide wire was introduced through the needle, which was then exchanged over the guide wire for a 6F sheath, which was secured in place. The guide wire was removed and the sheath was flushed. The RF catheter was placed into the vein through the sheath and preferentially, imaging was used to place the catheter tip just inferior to the superficial epigastric vein to preserve normal physiological flow in that vein. Additionally, it was confirmed by ultrasound guidance that the catheter tip was also placed a minimum of 1.5cm distal to the saphenofemoral junction. After the RF catheter position was verified by ultrasound, tumescent anesthesia was infiltrated, under ultrasound guidance, precisely into the perivenous compartment along the entire length of vein from the entry site to the saphenofemoral junction until a halo of fluid was noted around the vein. The patient was then placed in supine position to further exsanguinate the superficial venous system. After RF catheter position was again confirmed with ultrasound imaging, and under direct external compression along the length of the heating element, RF energy was applied. The vein was segmentally ablated by heating a 8 cm segment and then indexing the catheter forward by 7.5 cm until the treatment length is completed. Device temperature was maintained at 120 plus or minus 5 degrees C with an initial power level of 40W dropping to below 20W for each treatment. Total vein length treated 40 cm Total cycles of RF 8. Repeat ultrasound of the saphenous vein was performed, confirming successful treatment. The catheter and sheath were withdrawn and hemostasis established with direct pressure. After assuring hemostasis, the skin incision over the saphenous vein was closed with a bandage and a compression wrap, and/ or graduated compression stocking was applied from the level of the foot to the most proximal level of the thigh. 29159 - Endovenous RF, 1st Vein All charges added?: Procedure code (CPT) selection complete Assessment & Plan Assessment & Plan (1) Varicose veins of left lower extremity with inflammation: Comment: 03/11/2025 - left great saphenous vein radiofrequency ablation Code(s): I83.12 - Varicose veins of left lower extremity with inflammation Category: Medical Plan: See op note Coding Level of Care Code Procedure Only Diagnoses Varicose veins of left lower extremity with inflammation I83.12 CPT Codes Details - Vascular 1: 91333 - Endovenous RF, 1st Vein ([id number])
--- OUTSIDE RECORDS SUMMARY | 2025-03-11 12:14 | XMS_ITS | Patient Health Record ---
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 Phone DAISY DASH Primary Care Provider Rock Boykin Unavailable [phone] Allergies Allergen (clinical drug ingredient) Drug/Non Drug [...] 50 MG 1 tablet Orally Once a day; Duration: 30 day(s) Active Ibuprofen 800 MG TAKE 1 TABLET BY MAMADOU TH THREE TIMES A DAY WITH FOOD Oral; Duration: 30 Days Active Once Daily - 1 tablet Orally Once a day mens 50 Active Clotrimazole-Betamethasone 1-0.05 % APPLY TO AFFECTED AREA TWICE A DAY IN THE MORNING AND IN THE EVENING External; Duration: 7 Days Activ e Losartan Potassium 50 MG Oral; Duration: 90 Days Active Clotrimazole-Betamethasone 1-0.05 % External; Duration: 90 Days Active Sildenafil Citrate 100 MG TAKE 1 TABLET BY MOUTH EVERY DAY NEEDED ABOUT 1 HOUR BEFORE SEXUAL ACTIVITY Oral; Duration: 30 Days Active Immunizations Vaccine Route Administration [...] Status Risk Notes Problem Colon cancer screening (279694924) Colon cancer screening (Z12.11) Active confirmed Problem History of adenomatous polyp of colon (571047256) History of adenomatous polyp of colon (Z86.010) Active confirmed Problem Preprocedural examination (423735117505139) Preprocedural examination (Z01.818) Active confirmed Problem Gastroesophageal reflux disease (399047725) Gastroesophageal reflux disease, esophagitis presence not specified (K21.9) Active confirmed Problem Abnormal feces (472477543) Heme + stool (R19.5) Active confirmed Vital Signs Temperature 97.9 degrees Fahrenheit 01/19/2025 Blood pressure diastolic 01 mm Hg 01/19/2025 Height 72 in 01/19/2025 Blood pressure systolic 001 mm Hg 01/19/2025 Weight 377 lbs 01/19/2025 BMI 51.12 kg/m2 01/19/2025 Procedures Procedure Date Ordered Date Performed Result Body Sit e COLONOSCOPY 01/19/2025 N/A Encounters Encounter Location Date Provider Diagnosis [facility] [address] [place] [address] 01/19/2025 Rock Lucia History of adenomato us [...] Next Appt Details Provider Name:Rock Lucia , 05/06/2025 07:30:00 AM, [address] [place] [address] , [place], [place], [id number], Insurance Providers Payer Name Payer Address Payer Phone Subscriber Number Group Number Insured Name Patient Relationship to Insured Coverage Start Date Coverage End Date [facility] [address] [place], [place] [id number] [phone] [id number] AUGUSTOVICENTE HINOJOSA Self - patient is the insured Medical (General) History Medical History History ICD Code Denies NE,DM,CVA,Lung disease,renal dise ase Negative colonoscopy in 05/2003 [...]
--- OUTSIDE RECORDS SUMMARY | 2025-03-11 12:14 | XMS_ITS | Patient Health Record ---
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 Role Phone Jimmy Baxter MD Primary Care Provider UnavailTrlel Vasquez Unavailable [phone] Allergies Allergen (clinical drug ingredient) Drug/Non Drug [...] Status W/U Status Risk Notes Problem Bursitis (91501864) Bursitis (727.3) Active confirmed Problem Myositis (52737889) Myositis (729.1) Active confirmed Problem Pain in limb (73952435) Pain in Limb (729.5) Active confirmed Problem Plantar fasciitis (014011469) Plantar Fasciitis (728.71) Active confirmed Problem Tinea pedis (8083034) Tinea Pedis (110.4) Active confirmed Plan Of Treatment No Information Insurance Providers Payer Name Payer Address Payer Phone Subscriber Number Group Number Insured Name Patient Relationship to Insured Coverage Start Date Coverage End Date [facility] [employer] Others [address] [place] [address] [id number] Kolby Gross Self - patient is the insured Medical (General) History Medical History History ICD Code Back,Hip,and Knee pain Chicken pox Measles
== END 2025-03-11 11:30 | disposition home or self-care (01) ==
LOC: HO.HVS 10:19
PROVIDERS: PCP Internal Medicine; Visit Provider Surgery Vascular Surgery
DX: I83.12 Varicose veins of left lower extremity with inflammation (principal)
CPT/HCPCS: 36475

== ENCOUNTER → 2025-03-11 10:18 | Outpatient (BNVA) | payer BC, SELFPAY | PROVIDERS: PCP Internal Medicine; Visit Provider Surgery Vascular Surgery | DX: I83.12 Varicose veins of left lower extremity with inflammation (principal) | CPT/HCPCS: 36475; J2003 ==

== ENCOUNTER 2025-03-24 14:21 | Outpatient (AMB) | payer BC, SELFPAY ==
[2025-03-24 14:29] VITALS: BP 140/84; PULSE 82; O2SAT 96; BMI 48.8
--- NOTE | 2025-03-24 14:29 | A.OFFVIS_ITS ---
Vital Signs 03/24/25 14:29 Height 6 ft 1 in Weight 370 lb BMI 48.8 BP 140/84 H Blood Pressure Location Rt brachial Position Sitting Pulse 82 Pulse Source Pulse Oximeter Pulse Oximetry (%) 96 Oxygen Delivery Method Room Air Intake Visit Reasons: 3mnth - PSG? Intake Note: Patient presents follow up MELINDA. Titrat done 02/18, Compliance in chart(87/90days, >=4hrs-97%, Average Usgae-7hr 27min, Med Pressure-11.1, Med Leaks-7.0, AHI-2.7). Patient asking if yawing effects effectiveness. Accompanied by: Self / Same As Patient Allergies azithromycin (From Zithromax Z-Burton) Allergy (Intermediate, Verified 03/24/25 14:33) Diarrhea Penicillins (PENICILLINS) Allergy (Intermediate, Verified 03/24/25 14:33) HIVES lisinopril (LISINOPRIL) Adverse Reaction (Intermediate, Verified 03/24/25 14:33) COUGH HPI Comments Details: 64y/o male with HTN, presents for a f/u of severe obstructive sleep apnea. May 2024 HST c/w AHI of 28 and oxygen megan was 81%, he has severe MELINDA and pt education is provided. October 2024, phlebectomy, due to Varicosities r. lower calves and wears compression stockings daily due to bilateral edema. Jan 2025 Titration study is reviewed with pt. Trialed pt on cpap 4-12cm H20, breathing and oxygen stabilized. Will send a new RX for cpap [id number] with Resmed N20 lg full face mask and chin straps and f/u for compliance. MELINDA Compliance Data 09/21/2024 - 12/21/2024 reviewed with pt today. Total avg use is 88/90 days, and >4 hours is 94% 6 hours and 50min Med pressures are 19chI22 and Leaks are 3.4 to 378hwA97 AHI is 3/hr He washes his mask, rinses hoses, changes the filter, fills reservoir. His BMI is elevated 49.0, and bp is still elevated to 140/84. He says he gets stressed with work in the afternoons mainly. He changed out mask and likes the soft memory foam material, however he continues to have multiple leaks. Since his titration study shows better compliance with AHI at 52pfL10, we will monitor for therapy. He does notice a difference in how he feels when he awakes in the morning and no longer struggles to keep the mask on with the support of chin straps. He denies RLS and paresthesias since starting magnesium 400mg the bilateral feet cramps and tingling has improved. He sleeps well at night now and notices he is getting into deeper stages of sleep, however is following up with urology due to multiple arousals at night 3- 4 for bathroom breaks. He denies bruxism and morning headaches. Memory and mood is stable. He continues to limit use of NSAIDS to 600mg po seldomnly, as he has knee pain along with back pain L1-2-3, and 5 due to herniated disc. He completed PT and had an MRI. [facility] Medical History Sleep apnea Varicose veins of both lower extremities Chronic back pain Annual physical exam Hyperlipidemia Pure hypercholesterolemia, unspecified Severe obesity with body mass index (BMI) of 36.0 to 36.9 with serious comorbidity Prediabetes Establishing care with new doctor, encounter for Erectile dysfunction Hypertension Obstructive sleep apnea hypopnea, severe Loud snoring Hypersomnia Pilonidal cyst Surgical History History of colonoscopy H/O vasectomy Family History Father No problems noted. Mother No problems noted. Sister Kidney disease Heart disease Social History Household Members: Spouse Housing: House Alcohol intake: current Alcohol intake frequency: a few times a month Comment: 2-3 beer Patient Tobacco Use Status: Never used Tobacco service: No Current occupational status: employed Current occupation: [employer] Cognitive needs: No Hearing needs: No Vision needs: Yes (reading glasses) Physical Exam Vital Signs: Last Vital Signs Pulse 82 03/24/25 14:29 BP 140/84 H 03/24/25 14:29 Pulse Ox 96 03/24/25 14:29 Oxygen Delivery Method Room Air 03/24/25 14:29 BMI result Body Mass Index 48.8 Cooperative, gentleman, BMI is 49.0. BP is elevated. Const General: cooperative and no acute distress Nutritional Appearance: obese (BMI is 37.7) centrally obese Orientation/consciousness: patient oriented x3 HEENT Face and sinus: Yes normal facial exam and Yes face symmetric Teeth and gingiva: other ([place] score of 3) Eyes Pupils: Equal, round and reactive pupils present Neck Thyroid: other (ROM limited to the right) Resp Effort & Inspection: normal respiratory effort and able to speak in complete sentences Neuro General: patient oriented x3 and moves all extremities Cranial nerves: Yes Facial sensation intact/muscles of mastication intact, Yes Equal, round and reactive pupils present, Yes Normal accommodation reflex present, Yes Normal facial strength present, Yes Midline tongue present and Yes Ability to bilaterally elevate shoulders present Cognition (Neuro): normal cognition Gait exam (Neuro): Wide-based gait present and Other gait observations present (stooped at hips) Motor exam (neuro): 5/5 motor strength present throughout and Normal motor muscle tone present throughout Psych Appearance: grossly normal Mental Status: mental status grossly normal Speech and movement: Normal speech and movement present Thought process: Normal thought process present Thought content: Normal thought content present Insight: Good insight present (Psych) Judgement: Good judgement present (Psych) Results Reviewed Results Reviewed: MELINDA Compliance Data 09/21/2024 - 12/21/2024 reviewed with pt today. Total avg use is 88/90 days, and >4 hours is 94% 6 hours and 50min Med pressures are 85hvK02 and Leaks are 3.4 to [id number] AHI is 3/hr He washes his mask, rinses hoses, changes the filter, fills reservoir. Assessment & Plan Assessment & Plan (1) MELINDA on CPAP: Code(s): G47.33 - Obstructive sleep apnea (adult) (pediatric) Category: Medical (2) Excessive daytime sleepiness: Code(s): G47.19 - Other hypersomnia Category: Medical (3) Chronic fatigue: Code(s): R53.82 - Chronic fatigue, unspecified Category: Medical (4) Sleep disturbances: Comment: urology for nocturia Code(s): G47.9 - Sleep disorder, unspecified Category: Medical (5) Hypertension: Code(s): I10 - Essential (primary) hypertension Category: Medical Qualifiers: Hypertension type: primary hypertension Qualified Code(s): I10 - Essential (primary) hypertension (6) Nocturia more than twice per night: Code(s): R35.1 - Nocturia Category: Medical Plan: Plan MELINDA continue with CPAP therapy will evaluate after titration is completed, he continues to feel pressures and leaks are disturbing. New rx will be sent to adjust pressures to 00hgL44 and monitor compliance with AHI also. Nocturia with fragmented sleep, limit fluids 2hours prior to night time, started on slidenafil and is psa is pending per urology. Fragmented sleep Start melatonin with [id number] to induce sleep. RLS, continue magnesium 400mg po daily for night time cramps. BMI is elevated, continue to bike, or swim as tolerable, staying active, walking if tolerable. Complete labs. F/U in 3 months Orders: Orders TSH reflex Free T4 03/24/25 G47.19 - Other hypersomnia, R53.82 - Chronic fatigue, unspecified Ferritin 03/24/25 G47.19 - Other hypersomnia, R53.82 - Chronic fatigue, unspecified Methylmalonic Acid 03/24/25 G47.19 - Other hypersomnia, G47.9 - Sleep disorder, unspecified, R53.82 - Chronic fatigue, unspecified, R53.83 - Other fatigue IRON PROFILE 03/24/25 G47.19 - Other hypersomnia, G47.9 - Sleep disorder, unspecified, R53.82 - Chronic fatigue, unspecified, R53.83 - Other fatigue Homocysteine 03/24/25 G47.19 - Other hypersomnia, G47.9 - Sleep disorder, unspecified, R53.82 - Chronic fatigue, unspecified, R53.83 - Other fatigue Vitamin D 25-OH Total 03/24/25 G47.19 - Other hypersomnia, R53.82 - Chronic fatigue, unspecified Vitamin B12 and Folate 03/24/25 G47.19 - Other hypersomnia, R53.82 - Chronic fa tigue, unspecified Patient Instructions: Please complete the following fasting labs to rule out deficiencies. CBC/CMP/ B12/ Vit D/ TSH/ Homocysteine and MMA/ Ferritin. Sleep Hygiene provided: set a scheduled bedtime and wake time to help regulate the circadian rhythm and balance the release of pituitary hormones. Sleep in a dark room, temperatures below 68 degrees, and no devices n bed. Limit caffeinated products 6 hours prior to bed, and limit fluids 2-4 hours prior to bed. Gentle night yoga, diffusing essential oils, and playing soft music can be relaxing. Coding Level of Care Code Est Pt Level 4 (65271) Diagnoses MELINDA on CPAP G47.33 Excessive daytime sleepiness G47.19 Chronic fatigue R53.82 Sleep disturbances G47.9 Primary hypertension I10 Hypertension type: primary hypertension Nocturia more than twice per night R35.1
--- OUTSIDE RECORDS SUMMARY | 2025-03-24 17:24 | XMS_ITS | Patient Health Record ---
Author Organization [facility] Address [address] [place] [address] Care Team Providers Care Garment Supervisor Name Role Phone DAISY DASH Primary Care Provider Rock Boykin Unavailable [phone] Allergies Allergen (clinical drug ingredient) Drug/Non Drug [...] Status Risk Notes Problem Colon cancer screening (876759923) Colon cancer screening (Z12.11) Active confirmed Problem History of adenomatous polyp of colon (009643937) History of adenomatous polyp of colon (Z86.010) Active confirmed Problem Preprocedural examination (176488572198714) Preprocedural examination (Z01.818) Active confirmed Problem Gastroesophageal reflux disease (006823366) Gastroesophageal reflux disease, esophagitis presence not specified (K21.9) Active confirmed Problem Abnormal feces (479849244) Heme + stool (R19.5) Active confirmed Vital Signs Temperature 97.9 degrees Fahrenheit 01/19/2025 Blood pressure diastolic 01 mm Hg 01/19/2025 Height 72 in 01/19/2025 Blood pressure systolic 001 mm Hg 01/19/2025 Weight 377 lbs 01/19/2025 BMI 51.12 kg/m2 01/19/2025 Procedures Procedure Date Ordered Date Performed Result Body Sit e COLONOSCOPY 01/19/2025 N/A Encounters Encounter Location Date Provider Diagnosis [facility] [address] [place] [address] 01/19/2025 Rock Lucia History of adenomato us [...] Provider Name:Rock Lucia , 05/06/2025 07:30:00 AM, [address] [place] [address] , [place], [place], [id number], Insurance Providers Payer Name Payer Address Payer Phone Subscriber Number Group Number Insured Name Patient Relationship to Insured Coverage Start Date Coverage End Date [facility] [address] [place], [place] [id number] [phone] [id number] AUGUSTOVICENTE HINOJOSA Self - patient is the insured Medical (General) History Medical History History ICD Code Denies [place],DM,CVA,Lung disease,renal dise ase Negative colonoscopy in 05/2003 [...]
--- OUTSIDE RECORDS SUMMARY | 2025-03-24 17:24 | XMS_ITS | Patient Health Record ---
[facility] Address [address] [place] [address] Care Team Providers Care Clinical Services Manager Name Role Phone Jimmy Baxter MD Primary Care Provider UnavailTrell Vasquez Unavailable [phone] Allergies Allergen (clinical drug ingredient) Drug/Non Drug [...] Status W/U Status Risk Notes Problem Bursitis (37278743) Bursitis (727.3) Active confirmed Problem Myositis (52582455) Myositis (729.1) Active confirmed Problem Pain in limb (40505893) Pain in Limb (729.5) Active confirmed Problem Plantar fasciitis (901733483) Plantar Fasciitis (728.71) Active confirmed Problem Tinea pedis (3139355) Tinea Pedis (110.4) Active confirmed Plan Of Treatment No Information Insurance Providers Payer Name Payer Address Payer Phone Subscriber Number Group Number Insured Name Patient Relationship to Insured Coverage Start Date Coverage End Date [facility] All Others [address] [place] [address] [id number] Kolby Gross Self - patient is the insured Medical (General) History Medical History History ICD Code Back,Hip,and Knee pain Chicken pox Measles
== END 2025-03-24 15:31 | disposition home or self-care (01) ==
LOC: HO.HSMS 14:22
PROVIDERS: PCP Internal Medicine; Visit Provider Physician Assistant Medical
DX: G47.33 Obstructive sleep apnea (adult) (pediatric) (principal); G47.19 Other hypersomnia; R53.82 Chronic fatigue, unspecified; G47.9 Sleep disorder, unspecified; I10 Essential (primary) hypertension; R35.1 Nocturia
CPT/HCPCS: 99214

== ENCOUNTER 2025-03-29 15:09 | Outpatient (AMB) | payer BC, SELFPAY ==
[2025-03-29 15:12] VITALS: BMI 48.8
--- NOTE | 2025-03-29 15:12 | A.OFFVIS_ITS ---
Vital Signs 03/29/25 15:12 Height 6 ft 1 in Weight 370 lb BMI 48.8 Intake Visit Reasons: 2 wk followup Left GSV RFA 03/11/25 Intake Note: 2 week follow up Left GSV RFA 03/11/25, pt states Left LE feels the same. Pt states that Right LE feels better Hoisting Laborer Required: No Accompanied by: Self / Same As Patient Allergies azithromycin (From Zithromax Z-Burton) Allergy (Intermediate, Verified 03/29/25 15:17) Diarrhea Penicillins (PENICILLINS) Allergy (Intermediate, Verified 03/29/25 15:17) HIVES lisinopril (LISINOPRIL) Adverse Reaction (Intermediate, Verified 03/29/25 15:17) COUGH HPI HPI 2 wk followup Left GSV RFA 03/11/25: Details: The patient is a 64-year-old male presenting for follow-up after venous ablation procedures. The patient underwent radiofrequency ablation of the right great saphenous vein on November 12 and the left on March 11, 2025. He reports that the procedures have been successful, with significant improvement in symptoms and reduction in swelling. The patient also reports worsening osteoarthritis in his right knee, which he believes is contributing to his symptoms. Additionally, he has a history of a herniated disc, which he suspects may be causing nerve-related symptoms in his right leg. He has been using compression stockings as advised and has adapted well to wearing them during the day. In general appears to be doing extremely well postprocedure [facility] Medical History Sleep apnea Varicose veins of both lower extremities Chronic back pain Annual physical exam Hyperlipidemia Pure hypercholesterolemia, unspecified Severe obesity with body mass index (BMI) of 36.0 to 36.9 with serious comorbidity Prediabetes Establishing care with new doctor, encounter for Erectile dysfunction Hypertension Obstructive sleep apnea hypopnea, severe Loud snoring Hypersomnia Pilonidal cyst Surgical History History of colonoscopy H/O vasectomy Family History Father No problems noted. Mother No problems noted. Sister Kidney disease Heart disease Social History Household Members: Spouse Housing: House Alcohol intake: current Alcohol intake frequency: a few times a month Comment: 2-3 beer Patient Tobacco Use Status: Never used Tobacco service: No Current occupational status: employed Current occupation: [employer] Cognitive needs: No Hearing needs: No Vision needs: Yes (reading glasses) Review of Systems Const All systems reviewed & are unremarkable except as noted in HPI and below Reports no additional complaints ENT Reports Normal hearing present Card Denies chest pain, Denies chest pain at rest, Denies chest pain with activity and Denies pedal edema Resp Denies cough GI Denies abdominal pain Musc Denies abnormal gait, Denies muscle cramps and Denies radiating pain into limb Skin/Breast Denies skin ulcer and Denies wounds Neuro Reports Normal hearing present and Denies abnormal gait Psych Reports no additional complaints Physical Exam Vital Signs: BMI result Body Mass Index 48.8 Const General: cooperative, healthy appearing and comfortable Orientation/consciousness: oriented to person, oriented to place and oriented to time HEENT Head: Yes normal to inspection Neck Neck: Yes normal visual inspection Carotids: no bruits Chest Chest palpation & inspection: normal inspection of the chest Resp Effort & Inspection: normal respiratory effort and able to speak in complete sentences Auscultation: clear to auscultation bilaterally, no crackles, no rales, no rhonchi and no wheezes Cardio Rate: regular rate Rhythm: regular rhythm Heart sounds: S1 normal heart sound present and S2 normal heart sound present Bruits: no carotid bruits Peripheral pulses: Peripheral pulses 2+ throughout GI Inspection: Yes normal to inspection Skin Wounds: no wounds Hair: normal Neuro General: oriented to person, oriented to place and oriented to time Cranial nerves: Yes CN's II-XII intact bilaterally and Yes Normal hearing present Cognition (Neuro): normal cognition Motor exam (neuro): 5/5 motor strength present throughout Extrem Other: venous exam: No significant superficial varicosities or spider telangiectasias, minimal edema General: No clubbing, No cyanosis and No edema Psych Appearance: grossly normal Mental Status: mental status grossly normal Speech and movement: Normal speech and movement present Assessment & Plan Assessment & Plan (1) Varicose veins of right lower extremity with inflammation: Comment: 11/12/2024 - right great saphenous vein radiofrequency ablation Code(s): I83.11 - Varicose veins of right lower extremity with inflammation Category: Medical Plan: See below (2) Varicose veins of left lower extremity with inflammation: Comment: 03/11/2025 - left great saphenous vein radiofrequency ablation Code(s): I83.12 - Varicose veins of left lower extremity with inflammation Category: Medical Plan: The patient has done extremely well with all venous treatments. Patient's may often experience postprocedure phlebitic episodes and I have discussed with the patient use of warm compresses and NSAIDS if tolerated for pain discomfort. In addition, I have discussed continued conservative measures including use of compression, leg elevation, and exercise. The patient was also given an information sheet regarding appropriate use of compression stockings and future purchases. Thank you for allowing us to care for your patient with venous disease. Coding Level of Care Code Est Pt Level 3 (19215) Diagnoses Varicose veins of right lower extremity with inflammation I83.11 Varicose veins of left lower extremity with inflammation I83.12
--- OUTSIDE RECORDS SUMMARY | 2025-03-29 18:04 | XMS_ITS | Patient Health Record ---
Author Organization [facility] Address [address] [place] [address] Care Team Providers Care Build And Release Manager Name Role Phone DAISY DASH Primary Care Provider Rock Boykin Unavailable [phone] Allergies Allergen (clinical drug ingredient) Drug/Non Drug [...] Status Risk Notes Problem Colon cancer screening (027799939) Colon cancer screening (Z12.11) Active confirmed Problem History of adenomatous polyp of colon (582108134) History of adenomatous polyp of colon (Z86.010) Active confirmed Problem Preprocedural examination (886401167886634) Preprocedural examination (Z01.818) Active confirmed Problem Gastroesophageal reflux disease (683489790) Gastroesophageal reflux disease, esophagitis presence not specified (K21.9) Active confirmed Problem Abnormal feces (520645710) Heme + stool (R19.5) Active confirmed Vital Signs Temperature 97.9 degrees Fahrenheit 01/19/2025 Blood pressure diastolic 01 mm Hg 01/19/2025 Height 72 in 01/19/2025 Blood pressure systolic 001 mm Hg 01/19/2025 Weight 377 lbs 01/19/2025 BMI 51.12 kg/m2 01/19/2025 Procedures Procedure Date Ordered Date Performed Result Body Sit e COLONOSCOPY 01/19/2025 N/A Encounters Encounter Location Date Provider Diagnosis [facility] [address] [place] [address] 01/19/2025 Rock Lucia History of adenomato us [...] Provider Name:Rock Lucia , 05/06/2025 07:30:00 AM, [address] [place] [address] , [place], [place], [id number], Insurance Providers Payer Name Payer Address Payer Phone Subscriber Number Group Number Insured Name Patient Relationship to Insured Coverage Start Date Coverage End Date [facility] [address] [place], [place] [id number] [phone] [id number] AUGUSTOVICENTE HINOJOAS Self - patient is the insured Medical (General) History Medical History History ICD Code Denies [place],DM,CVA,Lung disease,renal dise ase Negative colonoscopy in 05/2003 [...]
--- OUTSIDE RECORDS SUMMARY | 2025-03-29 18:04 | XMS_ITS | Patient Health Record ---
Author Organization [facility] Address [address] [place] [address] Care Team Providers Care Travel Ticketing Reviewer Name Role Phone Jimmy Baxter MD Primary Care Provider UnavailTrell Vasquez Unavailable [phone] Allergies Allergen (clinical drug ingredient) Drug/Non Drug [...] Status W/U Status Risk Notes Problem Bursitis (72980693) Bursitis (727.3) Active confirmed Problem Myositis (02655812) Myositis (729.1) Active confirmed Problem Pain in limb (98276458) Pain in Limb (729.5) Active confirmed Problem Plantar fasciitis (693238493) Plantar Fasciitis (728.71) Active confirmed Problem Tinea pedis (8798933) Tinea Pedis (110.4) Active confirmed Plan Of Treatment No Information Insurance Providers Payer Name Payer Address Payer Phone Subscriber Number Group Number Insured Name Patient Relationship to Insured Coverage Start Date Coverage End Date [facility] All Others [address] [place] [address] [id number] Kolby Gross Self - patient is the insured Medical (General) History Medical History History ICD Code Back,Hip,and Knee pain Chicken pox Measles
== END 2025-03-29 15:35 | disposition home or self-care (01) ==
LOC: HO.HVS 15:10
PROVIDERS: PCP Internal Medicine; Visit Provider Surgery Vascular Surgery
DX: I83.11 Varicose veins of right lower extremity with inflammation (principal); I83.12 Varicose veins of left lower extremity with inflammation
CPT/HCPCS: 99213

== ENCOUNTER 2025-04-14 06:12 | Outpatient (REF) | payer BC, SELFPAY ==
--- OUTSIDE RECORDS SUMMARY | 2025-04-14 06:15 | XMS_ITS | Patient Health Record ---
Author Organization [facility] Address [address] [facility] [place] [address] Care Team Providers Care Breeder Hen Service Technician Name Role Phone Jimmy Baxter MD Primary Care Provider UnavailTrell Vasquez Unavailable [phone] Allergies Allergen (clinical drug ingredient) Drug/Non Drug [...] Status W/U Status Risk Notes Problem Bursitis (96383847) Bursitis (727.3) Active confirmed Problem Myositis (86445622) Myositis (729.1) Active confirmed Problem Pain in limb (43799885) Pain in Limb (729.5) Active confirmed Problem Plantar fasciitis (455416620) Plantar Fasciitis (728.71) Active confirmed Problem Tinea pedis (2422515) Tinea Pedis (110.4) Active confirmed Plan Of Treatment No Information Insurance Providers Payer Name Payer Address Payer Phone Subscriber Number Group Number Insured Name Patient Relationship to Insured Coverage Start Date Coverage End Date [facility] All Others [address] [place] [address] [phone] [id number] Kolby Gross Self - patient is the insured Medical (General) History Medical History History ICD Code Back,Hip,and Knee pain Chicken pox Measles
--- OUTSIDE RECORDS SUMMARY | 2025-04-14 06:15 | XMS_ITS | Patient Health Record ---
Author Organization [facility] Address [address] [place] [address] Care Team Providers Care Linux Support Engineer Name Role Phone DAISY DASH Primary Care Provider Rock Boykin Unavailable [phone] Allergies Allergen (clinical drug ingredient) Drug/Non Drug Allergy documented on EMR Reaction Allergy Type Onset Date Status lisinopril Lisinopril Unknown Drug Allergy Activ e Penicillin Unknown Drug Allergy Active Reason For Referral No Information Medications Medication SIG (Take, Route, Frequency, Duration) Notes Start Date End Date Status Vitamin B Complex - Tablet as directed O jeni once a day Active Losartan Potassium 50 MG Tablet 1 tablet Orally Once a day; Duration: 30 day(s) Active Ibuprofen 800 MG Tablet TAKE 1 TABLET BY MOUTH THREE TIMES A DAY WITH FOOD Oral; Duration: 30 Days Active Once Daily - Tablet 1 tablet Orally Once a day mens 50 Active Clotrimazole-Betamethasone 1-0.05 % Cream APPLY TO AFFECTED AREA TWICE A DAY IN THE MORNING AND IN THE EVENING External; Duration: 7 Days Activ e Losartan Potassium 50 MG Tablet Oral; Duration: 90 Days Acti ve Clotrimazole-Betamethasone 1-0.05 % Cream External; Duration: 90 Days Active Sildenafil Citrate 100 MG Tablet TAKE 1 TABLET BY MOUTH EVERY DAY NEEDED ABOUT 1 HOUR BEFORE SEXUAL ACTIVITY Oral; Duration: 30 Days Active Immunizations Vaccine Route Administration Date Status Comme nts Influenza Unknown 07/16/2018 Refused Influenza Unknown 01/19/2025 Refused Social History Social History Drugs/Alcohol: Social Info Question Answer Notes Alcohol Screen Did you have a drink containing alcohol in the past year? Yes How often did you have a drink containing alcohol in the past year? 2 to 3 times a week (3 points) How many drinks did you have on a typical day when you were drinking in the past year? 3 or 4 drinks (1 point) How often did you have 6 or more drinks on one occasion in the past year? 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 [employer] Notes: Nonsmoker; occasional alcoho l Nonsmoker; occasional alcoho l Nonsmoker; occasional alcoho l Problems Problem Type SNOMED Code ICD Code Onset Dates Problem Status W/U Status Risk Notes Problem Colon cancer screening (035023368) Colon cancer screening (Z12.11) Active confirmed Problem History of adenomatous polyp of colon (625556454) History of adenomatous polyp of colon (Z86.010) Active confirmed Problem Preprocedural examination (283029167953390) Preprocedural examination (Z01.818) Active confirmed Problem Gastroesophageal reflux disease (063273519) Gastroesophageal reflux disease, esophagitis presence not specified (K21.9) Active confirmed Problem Abnormal feces (824254457) Heme + stool (R19.5) Active confirmed Vital Signs Temperature 97.9 degrees Fahrenheit 01/19/2025 Blood pressure diastolic 01 mm Hg 01/19/2025 Height 72 in 01/19/2025 Blood pressure systolic 001 mm Hg 01/19/2025 Weight 377 lbs 01/19/2025 BMI 51.12 kg/m2 01/19/2025 Procedures Procedure Date Ordered Date Performed Result Body Sit e COLONOSCOPY 01/19/2025 N/A Encounters Encounter Location Date Provider Diagnosis [facility] [address] [place] [address] 01/19/2025 Rock Lucia History of adenomato us [...] Provider Name:Rock Lucia , 05/06/2025 07:30:00 AM, [address] [place] [address] , [place], [place], [phone], Insurance Providers Payer Name Payer Address Payer Phone Subscriber Number Group Number Insured Name Patient Relationship to Insured Coverage Start Date Coverage End Date [facility] [address] [place], [place] [id number] [phone] [id number] VICENTE SORIANO Self - patient is the [...] Sleep apnea-uses CPAP Surgical History Surgery Date(Month/Year) Pilonidal cyst removed by Dr Ayers RLE varicose veins 11/17
[2025-04-14 07:14] LABS: Iron 122 mcg/dL (45-160); Percent Iron Saturation 42 % (15-50); Total Iron Binding Capacity 288 mcg/dL (228-428); Unsaturated Iron Binding 166 ug/dL
[2025-04-14 07:31] LABS: Ferritin 131 ng/mL (20-250); Prostate Specific Antigen 0.97 ng/mL (<0.05-4.0)
[2025-04-14 07:45] LABS: Folate 15.2 ng/mL (> or = 4.0); Vitamin B12 639 pg/mL (200-900)
== END 2025-04-14 06:13 | disposition home or self-care (01) ==
LOC: HO.LAB 06:12
PROVIDERS: Absent Provider Nurse Practitioner Family; PCP Internal Medicine; Visit Provider Physician Assistant Medical
DX: N40.0 Benign prostatic hyperplasia without lower urinary tract symptoms (principal); G47.19 Other hypersomnia; R53.82 Chronic fatigue, unspecified; Z12.5 Encounter for screening for malignant neoplasm of prostate; Z13.21 Encounter for screening for nutritional disorder; Z13.0 Encounter for screening for diseases of the blood and blood-forming organs and certain disorders involving the immune mechanism; Z13.6 Encounter for screening for cardiovascular disorders
CPT/HCPCS: 36415; 82306; 82607; 82728; 82746; 83090; 83540; 83921; 84153; 84443

== ENCOUNTER 2025-04-26 15:44 | Outpatient (AMB) | payer BC, SELFPAY ==
--- NOTE | 2025-04-26 15:49 | MHC.OFFVIS ---
Intake Visit Reasons: 6m/PSA/PVR/UA Intake Note: Patient is present for 6M/PSA/PVR/UA Urology Medication:SILDENAFIL Antibiotic Allergy:AZITHROMYCIN,PENICILLIN Blood Thinner:NONE LAST PVR:5ML'S TODAY'S PVR:0ML'S Manager Cosmetic Required: No Allergies azithromycin (From Zithromax Z-Burton) Allergy (Intermediate, Verified 04/26/25 21:23) Diarrhea Penicillins (PENICILLINS) Allergy (Intermediate, Verified 04/26/25 21:23) HIVES lisinopril (LISINOPRIL) Adverse Reaction (Intermediate, Verified 04/26/25 21:23) COUGH Medication List - Last Reconciled 04/26/25 by CALLIE Garzon-ABDIEL clotrimazole-betamethasone 1-0.05 % 1 appl topical DAILY ibuprofen 800 mg PO TID 90 days losartan 50 mg PO DAILY sildenafil 100 mg PO DAILY HPI Comments Details: Kolby is a very pleasant 64-year-old male patient of Dr. Mills. He has a past medical history of obesity and hypertension. He presents to the office today for follow-up of his nocturia/lower urinary tract symptoms. In discussion with the patient today he reports improvement in episodes of nocturia since he has been diagnosed with sleep apnea and is now compliant with CPAP. However, he does continue to experience labile lower urinary tract symptoms of urinary frequency and nocturia. Previous workup has included a retroperitoneal ultrasound 02/16 noted bilateral kidneys with no calculi, lesions, and or hydronephrosis. The bladder is well distended and normal. Bladder jets are demonstrated. Pre void bladder volume is approximately 220 mL. Postvoid bladder volume is approximately 30 mL. The prostate was not seen with certainty. What was thought to possibly represent the prostate was of normal volume at 16 mL. PSAs are as follows: 02/16 0.8, 04/19 1.0 He denies hematuria, dysuria, foul-smelling urine, changes to urinary stream, flank pain, fever, and or chills. In office urinalysis results reviewed with the patient today. PVR 0 mL. He does report erectile dysfunction. He has been utilizing Viagra 50 mg PRN and has found this somewhat helpful. We did discussed potential causes of erectile dysfunction as well as labile urinary tract symptoms. We did discussed further treatment options and risks and benefits of these treatment options. All questions were answered. He otherwise offers no other issues or concerns at this time. FORMERLY [facility] Medical History Sleep apnea Varicose veins of both lower extremities Chronic back pain Annual physical exam Hyperlipidemia Pure hypercholesterolemia, unspecified Severe obesity with body mass index (BMI) of 36.0 to 36.9 with serious comorbidity Prediabetes Establishing care with new doctor, encounter for Erectile dysfunction Hypertension Obstructive sleep apnea hypopnea, severe Loud snoring Hypersomnia Pilonidal cyst Surgical History History of colonoscopy H/O vasectomy Family History Father No problems noted. Mother No problems noted. Sister Kidney disease Heart disease Social History Household Members: Spouse Housing: House Alcohol intake: current Alcohol intake frequency: a few times a month Comment: 2-3 beer Patient Tobacco Use Status: Never used Tobacco service: No Current occupational status: employed Current occupation: [employer] Cognitive needs: No Hearing needs: No Vision needs: Yes (reading glasses) Review of Systems Const All systems reviewed & are unremarkable except as noted in HPI and below Physical Exam Const General: cooperative, comfortable, no acute distress, well developed, alert and awake Nutritional Appearance: obese Orientation/consciousness: patient oriented x3 Limitations: no limitations HEENT Head: Yes normal to inspection, Yes normocephalic and Yes atraumatic Ears: hearing grossly normal bilaterally Eyes General: appearance normal, both eyes and all related structures Neck Neck: Yes normal visual inspection and Yes trachea midline Chest Chest palpation & inspection: normal inspection of the chest Resp Effort & Inspection: normal respiratory effort and able to speak in complete sentences Cardio Rate: regular rate GI Inspection: Yes normal to inspection General: Yes no CVA tenderness Back/Spine/Pelvis Back: no CVA tenderness Skin General skin exam: no rashes or lesions noted Neuro General: patient oriented x3 Extrem General: Yes normal to inspection Psych Appearance: grossly normal and well kempt Mental Status: mental status grossly normal Speech and movement: Normal speech and movement present and Clear speech present Affect: normal affect Attitude: cooperative Thought process: Normal thought process present Thought content: Normal thought content present Insight: Fair insight present (Psych) Judgement: Fair judgement present (Psych) Office Procedures Post Void Residual Post Residual Void Post Void Residual (PVR): 0 [id number]-[id number] Void Residual by ultrasound Results AMB Urinalysis, Automated UA Leukoctes 0 Lizzy/uL Last Edit by ALMA Samuels on 04/26/25 16:03 UA Nitrite Negative Last Edit by ALMA Samuels on 04/26/25 16:03 UA Urobilinogen 0.2 mg/dL Last Edit by ALMA Samuels on 04/26/25 16:03 UA Protein 15 mg/dL Last Edit by ALMA Samuels on 04/26/25 16:03 UA pH 6.0 Last Edit by Felix Chopra CCM on 04/26/25 16:03 UA Blood 0 Braulio/uL Last Edit by ALMA Samuels on 04/26/25 16:03 UA Specific [place] 1.025 Last Edit by ALMA Samuels on 04/26/25 16:03 UA Ketone Negative Last Edit by ALMA Samuels on 04/26/25 16:03 UA Bilirubin 0 mg/dL Last Edit by ALMA Samuels on 04/26/25 16:03 UA Glucose 0 mg/dL Last Edit by ALMA Samuels on 04/26/25 16:03 Results Reviewed Results Reviewed: Laboratory Last Values Urine pH (Auto) 6.0 04/26/25 16:02 Specific [place] (Auto) 1.025 04/26/25 16:02 Urine Protein (Auto) 15 mg/dL 04/26/25 16:02 Glucose (UA)(Auto) 0 mg/dL 04/26/25 16:02 Urine Ketones (Auto) Negative 04/26/25 16:02 Urine Blood (Auto) 0 Braulio/uL 04/26/25 16:02 Urine Nitrite (Auto) Negative 04/26/25 16:02 Urine Bilirubin (Auto) 0 mg/dL 04/26/25 16:02 Urine Urobilinogen (Auto) 0.2 mg/dL 04/26/25 16:02 Leukocyte Esterase (Auto) 0 Lizzy/uL 04/26/25 16:02 Assessment & Plan Assessment & Plan (1) Nocturia: Code(s): R35.1 - Nocturia Category: Medical (2) Urinary frequency: Code(s): R35.0 - Frequency of micturition Category: Medical (3) Urinary urgency: Code(s): R39.15 - Urgency of urination Category: Medical (4) Erectile dysfunction: Code(s): N52.9 - Male erectile dysfunction, unspecified Category: Medical Plan In office urinalysis results with the patient today; as noted above. PVR 0 mL. Start low-dose Cialis as discussed and prescribed. We did discussed potential causes of lower urinary tract symptoms as well as ED; we discussed further treatment options and risks and benefits of these treatment options. All questions were answered. We did discussed the importance of limiting fluids 2-3 hours prior to bed to decrease episodes of nocturia as well as compliance in CPAP for overall health and well-being. We discussed bladder triggers and irritants. Information provided regarding symptom management. Most recent PSA results reviewed with the patient today; as noted above. Follow-up in 4-6 months with PVR; or sooner with any issues, concerns, and or questions. Orders: Orders AMB Urinalysis Automated Today Z13.9 - Encounter for screening, unspecified Medications: New tadalafil (Cialis) [id number] [facility] [id number] Member [id number] 5 mg PO DAILY 90 tabs 1RF 90 days Patient Instructions: The patient had an opportunity to ask questions regarding the treatment plan. All questions were answered. Physical exam, labs, and imaging were discussed and reviewed in detail. As well as risks, benefits, and discussion of treatment choices. No major barriers to understanding were identified. The patient expressed understanding and agreement with the above treatment plan. The patient was made aware they should contact our office by phone for worsening of their current condition, the appearance of new symptoms, or with any questions or concerns. Compliance is encouraged with any medications and follow up testing that is ordered. It is a privilege to be allowed the opportunity to participate in? your urological care.? Again, if you have any questions or concerns If you have any questions or concerns please do not hesitate to contact me. The office is [phone]. This note is constructed using voice recognition software. While every effort has been made to ensure accuracy community advocate errors may have been included. Yours sincerely, CALLIE Garzon-BC Coding Level of Care Code Est Pt Level 4 (58709) Complex visit Add On G2211 Diagnoses Nocturia R35.1 Urinary frequency R35.0 Urinary urgency R39.15 Erectile dysfunction N52.9 CPT Codes Post Residual Void - PVR CPT Code: [id number]-[id number] Void Residual by ultrasound ([id number])
== END 2025-04-26 16:39 | disposition home or self-care (01) ==
LOC: HO.HUSH 15:45
PROVIDERS: PCP Internal Medicine; Visit Provider Nurse Practitioner Family
DX: R35.1 Nocturia (principal); R35.0 Frequency of micturition; R39.15 Urgency of urination; N52.9 Male erectile dysfunction, unspecified; Z13.9 Encounter for screening, unspecified
CPT/HCPCS: 99214

== ENCOUNTER → 2025-04-26 15:44 | Outpatient (BNVA) | payer BC, SELFPAY | PROVIDERS: PCP Internal Medicine; Visit Provider Nurse Practitioner Family | DX: R35.1 Nocturia (principal); R39.15 Urgency of urination; R35.0 Frequency of micturition; N52.9 Male erectile dysfunction, unspecified; Z99.89 Dependence on other enabling machines and devices; G47.33 Obstructive sleep apnea (adult) (pediatric) | CPT/HCPCS: 51798; 81003 ==

== ENCOUNTER 2025-05-06 06:17 | Day surgery (SDC) | payer BC, SELFPAY ==
--- NOTE | 2025-05-04 09:49 | HO.ANESPROP2 ---
Documented by User: Sheila Springer NP 05/04/25 09:50 HPI - Anesthesia Eval Consult details Narrative: 64 yr old male for colonoscopy BMI 49 Follows [facility] for varicose veins: s/p radiofrequency ablation of the right great saphenous vein on November 12 and the left on March 11, 2025; doing well post procedures at 03/29/25 f/u. MELINDA on CPAP PMFSH Active Problems Active Problems: All Active Problems (Updated 03/24/25 @ 15:32 by Sharita Edge PA-C) Chronic fatigue (Acute) Excessive daytime sleepiness (Acute) Varicose veins of left lower extremity with inflammation (Acute) Sleep apnea (Acute) Varicose veins of both lower extremities (Acute) Chronic back pain (Acute) Annual physical exam (Acute) Nocturia more than twice per night (Acute) MELINDA on CPAP (Acute) Sleep disturbances (Acute) Lymphedema (Acute) Hyperlipidemia (Acute) Pure hypercholesterolemia, unspecified (Acute) Varicose veins of right lower extremity with inflammation (Acute) Varicose veins of both lower extremities with inflammation (Acute) Severe obesity with body mass index (BMI) of 36.0 to 36.9 with serious comorbidity (Acute) Prediabetes (Acute) Establishing care with new doctor, encounter for (Acute) Erectile dysfunction (Acute) Hypertension (Acute) Venous stasis ulcer (Acute) Fatigue due to sleep pattern disturbance (Acute) Obstructive sleep apnea hypopnea, severe (Acute) Loud snoring (Acute) Hypersomnia (Acute) Urinary urgency (Acute) Urinary frequency (Acute) Nocturia (Acute) Antalgic gait (Acute) Osteoarthritis of left knee (Acute) Past Medical History Medical History Sleep apnea Varicose veins of both lower extremities Chronic back pain Annual physical exam Hyperlipidemia Pure hypercholesterolemia, unspecified Severe obesity with body mass index (BMI) of 36.0 to 36.9 with serious comorbidity Prediabetes Establishing care with new doctor, encounter for Erectile dysfunction Hypertension Obstructive sleep apnea hypopnea, severe Loud snoring Hypersomnia Pilonidal cyst Family History Family History Father No problems noted. Mother No problems noted. Sister Kidney disease Heart disease Surgical History Surgical History History of colonoscopy H/O vasectomy Social History Social History Household Members: Spouse Housing: House Alcohol intake: current Alcohol intake frequency: a few times a month Comment: 2-3 beer Patient Tobacco Use Status: Never used Tobacco Are you DNR?: No Advance Directives: No Advance Directives Information Provided: Yes service: No Current occupational status: employed Current occupation: [employer] Cognitive needs: No Hearing needs: No Vision needs: Yes (reading glasses) Meds Allergies Allergy/AdvReac Type Severity Reaction Status Date / Time azithromycin (From Zithromax Allergy Intermediate Diarrhea Verified 04/26/25 21:23 Z-Burton) Penicillins (PENICILLINS) Allergy Intermediate HIVES Verified 04/26/25 21:23 lisinopril (LISINOPRIL) AdvReac Intermediate COUGH Verified 04/26/25 21:23 Documented by User: Colt Mayers MD 05/06/25 07:15 [facility] Past Medical History Medical History Sleep apnea Varicose veins of both lower extremities Chronic back pain Annual physical exam Hyperlipidemia Pure hypercholesterolemia, unspecified Severe obesity with body mass index (BMI) of 36.0 to 36.9 with serious comorbidity Prediabetes Establishing care with new doctor, encounter for Erectile dysfunction Hypertension Obstructive sleep apnea hypopnea, severe Loud snoring Hypersomnia Pilonidal cyst Family History Family History Father No problems noted. Mother No problems noted. Sister Kidney disease Heart disease Family history of problems with anesthesia: No Surgical History Surgical History History of colonoscopy H/O vasectomy History of Problems with Anesthesia: No Social History Social History Household Members: Spouse Housing: House Alcohol intake: current Alcohol intake frequency: a few times a month Comment: 2-3 beer Patient Tobacco Use Status: Never used Tobacco Are you DNR?: No Advance Directives: No Advance Directives Information Provided: Yes service: No Current occupational status: employed Current occupation: [employer] Cognitive needs: No Hearing needs: No Vision needs: Yes (reading glasses) Meds Allergies Allergy/AdvReac Type Severity Reaction Status Date / Time azithromycin (From Zithromax Allergy Intermediate Diarrhea Verified 04/26/25 21:23 Z-Burton) Penicillins (PENICILLINS) Allergy Intermediate HIVES Verified 04/26/25 21:23 lisinopril (LISINOPRIL) AdvReac Intermediate COUGH Verified 04/26/25 21:23 Exam Exam Date and Time: 05/06/25 Airway Mallampati Class: III TM Dist: >3cm Neck ROM: Full Heart: rrr Lungs: ctab vesicular Assessment and Plan Assessment Anesthesia Assessment: Anesthesia Plan Discussed and Chart Reviewed Final Anesthetic Review Family History of Problems with Anesthesia: No History of Problems with Anesthesia: No NPO: Yes ASA Class: III Final Preanesthetic Review: No Changes in Pt Med Stat, Meds/Allgs Chart Reviewed, Consent Obtained/Reviewed and Anes Risks/Benef Reviewed Patient Risk: Intermediate Procedure Risk: Low Anesthetic Plan Anesthetic Plan: MAC: Disposition: Standard PACU
[2025-05-04 13:44] VITALS: BMI 51.1
[2025-05-06 06:42] VITALS: BMI 50.9
[2025-05-06 06:50] VITALS: BP 146/75; PULSE 90; RESP 20; TEMP 37.3; O2SAT 97
[2025-05-06] MEDS: Lactated Ringers 1,000 ML 100 ML IVCONT (07:08)
[2025-05-06 08:55] VITALS: BP 120/69; PULSE 82; RESP 10; TEMP 37; O2SAT 96
--- NOTE | 2025-05-06 09:03 | PM.OP ---
Brief Operative Note Date of Service: 05/06/25 Pre-op diagnosis: Screening Post-op diagnosis: other (Colon polyps) Procedure: Colonoscopy to the cecum and TI with hot snare polypectomy x 1 with placement of 1 Resolution clip Surgeon: Rock Lucia MD Anesthesia: MAC Was an Director Professional Services used for this Procedure?: No Estimated blood loss (mL): 0 Pathology: other (A. Polyp at 30cm) Condition: stable Disposition: PACU
[2025-05-06 09:09] VITALS: BP 130/84; PULSE 82; RESP 10; TEMP 37; O2SAT 97
--- NOTE | 2025-05-06 09:43 | OP_ITS ---
DATE OF SERVICE: 05/06/2025 SURGEON: Rock Lucia MD INDICATIONS: The patient presents for evaluation of colorectal cancer screening and personal history of tubular adenoma of the colon. Full consent has been obtained from him for this, including risks of bleeding and perforation. PREOPERATIVE DIAGNOSIS: POSTOPERATIVE DIAGNOSIS: PROCEDURE PERFORMED: ESTIMATED BLOOD LOSS: COMPLICATIONS: ANESTHESIA: ASSISTANTS: SPECIMENS: PREOPERATIVE DIAGNOSES: Colorectal cancer screening and personal history of tubular adenoma of the colon. POSTOPERATIVE DIAGNOSES: Colorectal cancer screening and personal history of tubular adenoma of the colon, colon polyp, diverticulosis, and internal hemorrhoids. DESCRIPTION OF PROCEDURE: The patient was placed in the left lateral decubitus position. The digital rectal exam revealed no abnormalities. The Olympus video pediatric colonoscope was entered into the rectum and advanced easily to the cecum. Once in the cecum, I did identify normal-appearing cecal pouch with appendiceal orifice and a normal-appearing ileocecal valve. The terminal ileum was cannulated and appeared normal. Scope withdrawn back in the colon. The entire cecum and ileocecal valve appeared normal. The scope was slowly withdrawn assessing all mucosal surfaces carefully. At 30 cm, there was an approximately 1.5 cm polyp on a short stalk, which was removed by hot snare polypectomy and recovered by withdrawing it on the tip of the scope. The scope was advanced back to the polypectomy site, which appeared clean, without any sign of residual polyp nor bleeding. A single resolution clip was applied to the polypectomy site with good deployment and good hemostasis. I did not visualize any other polyps, colitis, nor angiodysplasia. There was a mild amount of sigmoid diverticulosis. In the rectum, scope was retroflexed visualizing internal hemorrhoids, but no other pathology. The rectal mucosa appeared normal. The scope was straightened and withdrawn from the patient. He tolerated the procedure well and was returned to the recovery area in stable condition. IMPRESSION: 1. Colon polyp. 2. Diverticulosis. 3. Internal hemorrhoids. PLAN: The results of the Pathology will be checked. Given the size of the polyp, I would recommend a repeat colonoscopy in 3 years for further surveillance. He would otherwise see me as needed. He was advised not to use any aspirin and NSAIDs for 1 week. PROCEDURES PERFORMED: Colonoscopy to cecum and terminal ileum with hot snare polypectomy x 1 with placement of 1 resolution clip. MD FERNANDO Kilpatrick/ABIEL / [id number] [facility]
== END 2025-05-06 09:36 | disposition home or self-care (01) ==
PROVIDERS: PCP Internal Medicine; Visit Provider Internal Medicine
PROC: 0DJD8ZZ Inspection of Lower Intestinal Tract, Via Natural or Artificial Opening Endoscopic (ICD-10-PCS; CPT 45378; principal; 2025-05-06 07:30)
DX: Z12.11 Encounter for screening for malignant neoplasm of colon (principal); Z86.0101 Personal history of adenomatous and serrated colon polyps; K57.30 Diverticulosis of large intestine without perforation or abscess without bleeding; K64.8 Other hemorrhoids; D37.4 Neoplasm of uncertain behavior of colon
CPT/HCPCS: 45385; 88305; J2003; J2405; J2704; J3010